=== PATIENT | male | born 1950 | race Caucasian/White ===

== ENCOUNTER → 2016-05-06 | Outpatient (CLI) | payer MEDICARE ==
[~2016-05-06] MED LIST: ACET1CAP18 PO; ALLO100T PO; COLA100C PO; COLA100C3 PO; DENO60P SQ; DIAL800T3 PO; DIAZ5 PO; FISH100020 PO; FLEC1TAB8 PO; GABA100C4 PO; GLUC100017 PO; MIDO10TA PO; NORC5TAB PO; OMEG100037 PO; OMEP20TA PO; POTA-163 PO; POTA10CA PO; POTA10TA8 PO; PRED1 PO; PRED5TAB PO; PROC10003 SQ; RENATAB5 PO; SEVEL800 PO; TAMS5CAP PO; TYLE325T PO; VITA100018 PO; VITA2000 PO; WARF-18 PO; WARF-21 PO; WARF-23 PO; ZINC30TA2 PO; ZOFR4TAB PO; [UNRECOGNIZED DRUG - CODE] OP; [UNRECOGNIZED DRUG - CODE] PO; [UNRECOGNIZED DRUG - CODE] SQ; [UNRECOGNIZED DRUG - SUPPLY]
[2016-05-06 11:26] LABS: HEMATOCRIT 31.1 % (39.0-51.0); MEAN CELL VOLUME 90.6 FL (80.0-100.0); MEAN CORPUSCULAR HGB CONC 34.2 % (32.0-36.0); PLATELET COUNT 201 TH/MM3 (150-450); RED BLOOD COUNT 3.44 MIL/MM3 (4.50-5.90); RED CELL DISTRIBUTION WIDTH 14.6 % (11.6-17.2); REVIEW FLAG FINAL; WHITE BLOOD COUNT 6.3 TH/MM3 (4.0-11.0)
[2016-05-06 13:11] LABS: BLOOD, URINE NEG (NEG); GLUCOSE,URINE NEG (NEG); KETONE, URINE NEG (NEG); NITRITE,URINE NEG (NEG); SQUAMOUS EPITHELIAL CELL URINE <1 /hpf (0-5); URINE COLOR YELLOW (YELLW/STRAW)
[2016-05-06 13:19] LABS: ALKALINE PHOSPHATASE 64 U/L (45-117); ALT (GPT) 35 U/L (12-78); ANION GAP 13 MEQ/L (5-15); AST (GOT) 18 U/L (15-37); BLOOD UREA NITROGEN 71 MG/DL (7-18); CHLORIDE 99 MEQ/L (98-107); GLOMERULAR FILTRATION RATE 9 ML/MIN (>89); HDL CHOLESTEROL 45.9 MG/DL (40.0-60.0); LDL CHOLESTEROL 113 MG/DL (0-99); POTASSIUM 3.2 MEQ/L (3.5-5.1); SODIUM (NA) 138 MEQ/L (136-145); TOTAL BILIRUBIN ADULT 0.5 MG/DL (0.2-1.0)
[2016-05-06 13:33] LABS: HEMOGLOBIN A1a 1.3 %; HEMOGLOBIN A1b 3.4 %; HEMOGLOBIN Ao 77.7 %; HEMOGLOBIN LA1C 3.6 %; HEMOGLOBIN P3 8.9 %
== END ==
LOC: OLAB 11:00
PROVIDERS: ATTEND Internal Medicine
DX: E78.2 Mixed hyperlipidemia (principal); D64.9 Anemia, unspecified; Z79.899 Other long term (current) drug therapy
CPT/HCPCS: 36415; 80053; 80061; 81001; 83036; 85027

== ENCOUNTER → 2016-05-08 | Day surgery (SDC) | payer MEDICARE ==
[~2016-05-08] MED LIST changes: +CALC0.25 PO; +LIDOCAINE HCL 1% PF 30 ML VIAL INFIL ONE; +PROPOFOL 200 MG/20 ML AMP IV ONE; +RENATAB6 PO; +SODIUM CHLORIDE 0.9% 10 ML VIAL ONE; +TRIAMCINOLONE ACETONIDE 40 MG/ML VIAL NB ONE; +methylPREDNISolone ACETATE 80 MG/ML VIAL ONE
--- NOTE | 2016-05-14 13:16 | M6 ---
cc: PLACIDO FROST M.D. DATE 05/08/2016 DATE OF 1950 PROCEDURE Fluoroscopically guided L2-3 translaminar epidural steroid injection PROCEDURE NOTE History and physical was completed and signed. Consent was signed. Procedure site was marked. Medications were listed and reconciled. Pain score was recorded. Allergies were noted. Time out was taken. Fluoroscopy time was recorded where applicable. Sedation was administered or directed by Dr. Frost. The patient was given oxygen. The patient was monitored by a registered nurse. Total procedure time was greater than 15 minutes. IV was started, blood pressure cuff, pulse oximeter and EKG were applied. The patient was placed in the prone position on a Floyd table, sedated with small amounts of propofol titrated to effect. Vital signs were monitored and remained stable throughout the procedure. The lumbar area was prepped with alcohol and 10% Betadine solution and draped with sterile drapes. Fluoroscopy was used to visualize the L2-3 translaminar space. The skin was infiltrated with 1% Xylocaine using a 27 gauge needle then a 3-1/2-inch 18-gauge Morales needle was advanced using fluoroscopic guidance and the [id number] technique into the epidural space at L2-3 slightly to the right of the midline. There was negative aspiration for blood or any other type of fluid and the patient was given 10 mL of half percent Xylocaine, 80 mg of Depo-Medrol. Following the procedure, the patient was taken to the recovery room with stable vital signs neurologically intact. W. MD CHARI Mejía/JOSE MARIA /10:45 AM /12:14 PM
== END | disposition home or self-care (01) ==
LOC: PHSDC 09:09
PROVIDERS: ATTEND Pain Medicine Interventional Pain Medicine
DX: M54.5 Low back pain (principal)
CPT/HCPCS: 62323; 99152; J1040; J3301

== ENCOUNTER → 2016-06-10 | Outpatient (CLI) | payer MEDICARE ==
[~2016-06-10] MED LIST changes: -DIAL800T3 PO; -LIDOCAINE HCL 1% PF 30 ML VIAL INFIL ONE; -PROPOFOL 200 MG/20 ML AMP IV ONE; -SODIUM CHLORIDE 0.9% 10 ML VIAL ONE; -TRIAMCINOLONE ACETONIDE 40 MG/ML VIAL NB ONE; -methylPREDNISolone ACETATE 80 MG/ML VIAL ONE
== END ==
LOC: OLAB 10:43
PROVIDERS: ATTEND Internal Medicine
DX: E79.0 Hyperuricemia without signs of inflammatory arthritis and tophaceous disease (principal)
CPT/HCPCS: 36415; 84550

== ENCOUNTER → 2016-07-16 | Day surgery (SDC) | payer MEDICARE ==
[~2016-07-16] MED LIST changes: +BUPIVACAINE HCL PF 0.5% 30 ML VIAL ONE; +PROPOFOL 200 MG/20 ML AMP IV ONE; +TRIAMCINOLONE ACETONIDE 40 MG/ML VIAL I-ARTICULR ONE; +methylPREDNISolone ACETATE 40 MG/ML VIAL I-ARTICULR ONE
--- NOTE | 2016-07-16 22:11 | M6 ---
cc: PLACIDO FROST M.D. DATE 07/16/2016 DATE OF 1950 PROCEDURE Fluoroscopically guided injection of bilateral sacroiliac joints. History and physical was completed and signed. Consent was signed. Procedure site was marked. Medications were listed and reconciled. Pain score was recorded. Allergies were noted. Time out was taken. Fluoroscopy time was recorded where applicable. Sedation was administered or directed by Dr. Frost. The patient was given oxygen. The patient was monitored by a registered nurse. Total procedure time was greater than 15 minutes. IV was started, blood pressure cuff, pulse oximeter and EKG were applied. The patient was placed in the prone position on a Floyd table, sedated with small amounts of propofol titrated to effect. Vital signs were monitored and remained stable throughout the procedure. The sacral area was prepped with alcohol and 10% Betadine solution and draped with sterile drapes. Fluoroscopy was used shooting from medial to lateral to clearly visualize the posterior joint line of the bilateral sacroiliac joints. Separate sterile 5-inch 22-gauge spinal needles were advanced into these joints under fluoroscopic guidance. There was negative aspiration for blood or any other type of fluid and at each location the patient was given 1 mL of 0.5% Marcaine and 20 mg of Depo-Medrol and 20 mg of Kenalog. Following the procedure the patient was taken to the recovery room with stable vital signs neurologically intact. He will be evaluated immediately and with followup to determine if he has a subjective decrease in his usual pain and a corresponding objective increase in his functional capabilities. WMD CHARI Triplett/DRE /10:20 AM /10:09 PM
== END | disposition home or self-care (01) ==
LOC: PHSDC 08:46
PROVIDERS: ATTEND Pain Medicine Interventional Pain Medicine
DX: M54.5 Low back pain (principal)
CPT/HCPCS: 27096; 99152; G0260; J1030; J3301

== ENCOUNTER 2016-08-31 18:25 | Inpatient (IN) | payer MEDICARE ==
[~2016-08-31] VITALS: Ht 172.7 cm; Wt 82.8 kg
[~2016-08-31 18:25] MED LIST changes: -ACET1CAP18 PO; -ALLO100T PO; -BUPIVACAINE HCL PF 0.5% 30 ML VIAL ONE; -CALC0.25 PO; -COLA100C3 PO; -DIAZ5 PO; -OMEG100037 PO; -POTA10TA8 PO; -PROPOFOL 200 MG/20 ML AMP IV ONE; -RENATAB6 PO; -TAMS5CAP PO; -TRIAMCINOLONE ACETONIDE 40 MG/ML VIAL I-ARTICULR ONE; -VITA100018 PO; -WARF-21 PO; -ZINC30TA2 PO; -ZOFR4TAB PO; -methylPREDNISolone ACETATE 40 MG/ML VIAL I-ARTICULR ONE
[2016-08-31 18:28] VITALS: BP 113/63; PULSE 88; RESP 21; TEMP 98.4; O2SAT 94
[2016-08-31 18:39] VITALS: O2SAT 94
[2016-08-31] MEDS ORDERED: ASPIRIN 81 MG CHEW TAB PO ONE (18:45)
[2016-08-31] MEDS ORDERED: SODIUM CHLORIDE 0.9% FLUSH 10 ML FLUSH IVF PRN (18:45)
[2016-08-31] MEDS ORDERED: MORPHINE SULFATE 4 MG/ML INJ IV PUSH ONE ×2 (18:45→19:30)
--- NOTE | 2016-08-31 18:46 | PD ---
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 He says he's never had chest pain this severe before. He says they have been told he has congestive heart failure but doesn't have a stent. He does feel short of breath. He does peritoneal dialysis in the evenings and hasn't started today. PFSH Past Medical History Hx Anticoagulant Therapy: Yes Arthritis: Yes (OA) Atrial Fibrillation: Yes Anxiety: Yes Heart Rhythm Problems: Yes Cancer: No Cardiac Catheterization: Yes Cardiovascular Problems: Yes (CHF) High Cholesterol: Yes Congestive Heart Failure: Yes COPD: Yes Cerebrovascular Accident: Yes Diabetes: No Diminished Hearing: No Deep Vein Thrombosis: Yes Endocrine: No Gastrointestinal Disorders: Yes (reflux) Gout: Yes Genitourinary: Yes (kidney failure does peritoneal dialysis nightly) Hepatitis: No Hiatal Hernia: No Hypertension: No Immune Disorder: No Implanted Vascular Access Dvce: Yes Medical other: Yes (ANEMIA, HX DVT RIGHT THIGH AND PHLEBITIS LEFT CALF,GOUT) Musculoskeletal: Yes (arthritis spinal problems) Neurologic: No Psychiatric: No Reproductive: No Respiratory: Yes (COPD, CHRONIC BRONCHITIS) Renal Failure: Yes (HX OF BEFORE TRANSPLANT) Sleep Apnea: Yes Thyroid Disease: No Tetanus Vaccination: < 5 Years Influenza Vaccination: Yes ?: Not Past Surgical History Abdominal Surgery: Yes (catheter inserted for peritoneal dyalysis) AICD: No Arteriovenous Shunt: Yes (AVF LUE) Body Medical Devices: peritoneal tube for dyalysis hardware in the back Cardiac Surgery: Yes (TAVR AT [facility] 03/04/2014) Ear Surgery: No Endocrine Surgery: Yes Eye Surgery: No Genitourinary Surgery: Yes (kidney transplant x2) Joint Replacement: No Neurologic Surgery: No Pacemaker: No Thoracic Surgery: No Other Surgery: Yes (KIDNEY TRANSPLANT X 2, CARPAL TUNNEL L WRIST, FISTULA L WRIST) Social History Alcohol Use: No Tobacco Use: No (QUIT 1975) Substance Use: No Allergies-Medications (Allergen,Severity, Reaction): Coded Allergies: No Known Allergies (Unverified , 08/31/16) Reported Meds & Prescriptions Reported Meds & Active Scripts Active [mace cushion] 1 Unit .XX Potassium Chloride ER (Potassium Chloride) 10 Meq Cap 10 Meq PO Reported Calcitriol 0.25 Mcg Cap 0.25 Mcg PO DAILY Aziza-Neeraj Rx (B-Complex W/ C & Folic Acid) 1 Tab 1 Tab PO DAILY Tylenol (Acetaminophen) 325 Mg Tab 650 Mg PO Q4H PRN Colace (Docusate Sodium) 100 Mg Capsule 1 Cap PO DAILY Fish Oil 1000 mg ([place]-3 Fatty Acids) 1 Cap Cap 1 Cap PO DAILY Potassium Chloride ER (Potassium Chloride) 20 Meq Tab 20 Meq PO Warfarin 5 Mg Tab 5 Mg PO Warfarin 2.5 Mg Tab 2.5 Mg PO Vitamin D3 (Cholecalciferol) 2,000 Unit Cap 2,000 Units PO DAILY Renvela (Sevelamer Carbonate) 800 Mg Tab 8,000 Mg PO TID Procrit Inj (Epoetin Keny) 10,000 Unit/Ml Inj 10,000 Units SQ 3XWEEK Prednisone 5 Mg Tab 5 Mg PO DAILY Prednisone 1 Mg Tab 1 Mg PO DAILY Gabapentin 100 Mg Cap 100 Mg PO BID [place] (Hydrocodone-Acetaminophen) 5-325 mg Tab 1 Tab PO Q4H PRN Aziza-Neeraj (B-Complex W/ C & Folic Acid) 1 Tab 1 Tab PO DAILY Omeprazole 20 Mg Tab 20 Mg PO HS Prolia Inj (Denosumab) 60 Mg/Ml Inj 60 Mg SQ Q180D Glucosamine (Glucosamine Sulfate) 1,000 Mg Cap 2,000 Mg PO DAILY Midodrine 10 Mg Tab 10 Mg PO TID Prednisone 5 Mg Tab 5 Mg PO DAILY Flecainide (Flecainide Acetate) 50 Mg Tab 75 Mg PO BID Whey Protein (Protein) 1 Pow Pow 30 Gm OP EVERY OTHER DAY Procrit Inj (Epoetin Keny) 2,000 Unit/Ml Inj 10,000 Units SQ MONTHLY up to 2 times a month as needed Boost Breeze (Nutritional Supplements) 1 Liq Liq PO DAILY Review of Systems Except as stated in HPI: all other systems reviewed are Neg Physical Exam Narrative GENERAL: Chronically ill-appearing. SKIN: Focused skin assessment warm and dry. HEAD: Atraumatic. Normocephalic. EYES: Pupils equal and round. No injection or drainage. ENT: Moist mucous membranes NECK: Trachea midline. CARDIOVASCULAR: Regular rate and rhythm. No murmur appreciated. RESPIRATORY: Clear to auscultation. Breath sounds equal bilaterally. GASTROINTESTINAL: Abdomen soft, non-tender, nondistended. Peritoneal dialysis catheter in place. MUSCULOSKELETAL: No obvious deformities. NEUROLOGICAL: Awake and alert. No obvious cranial nerve deficits. Moving all extremities. PSYCHIATRIC: Appropriate mood and affect; insight and judgment normal. Data Data Last Documented VS Vital Signs Date Time Temp Pulse Resp B/P Pulse Ox O2 Delivery O2 Flow Rate FiO2 08/31/16 18:39 99 Nasal Cannula 2 08/31/16 18:31 85 08/31/16 18:28 98.4 21 113/63 Orders Electrocardiogram (08/31/16 18:37) Complete Blood Count With Diff (08/31/16 18:37) Comprehensive Metabolic Panel (08/31/16 18:37) Magnesium (Mg) (08/31/16 18:37) Prothrombin Time / Inr (Pt) (08/31/16 18:37) Act Partial Throm Time (Ptt) (08/31/16 18:37) Troponin I (08/31/16 18:37) Lipase (08/31/16 18:37) Chest, Single Ap (08/31/16 18:37) Ecg Monitoring (08/31/16 18:37) Bilateral Bp Monitoring (08/31/16 18:37) Iv Access Insert/Monitor (08/31/16 18:37) Oximetry (08/31/16 18:37) Oxygen Administration (08/31/16 18:37) Aspirin Chew (Aspirin Chew) (08/31/16 18:45) Sodium Chloride 0.9% Flush (Ns Flush) (08/31/16 18:45) B-Type Natriuretic Peptide (08/31/16 18:37) Morphine Inj (Morphine Inj) (08/31/16 18:45) Morphine Inj (Morphine Inj) (08/31/16 19:30) Hydromorphone Pf Inj (Dilaudid Pf Inj) (08/31/16 20:45) Admit Order (Ed Use Only) (08/31/16 20:34) Labs Laboratory Tests Test 08/31/16 18:44 White Blood Count 11.6 TH/MM3 Red Blood Count 3.55 MIL/MM3 Hemoglobin 10.8 GM/DL Hematocrit 32.9 % Mean Corpuscular Volume 92.7 FL Mean Corpuscular Hemoglobin 30.5 PG Mean Corpuscular Hemoglobin 32.9 % Concent Red Cell Distribution Width 14.6 % Platelet Count 232 TH/MM3 Mean Platelet Volume 7.4 FL Neutrophils (%) (Auto) 85.7 % Lymphocytes (%) (Auto) 7.3 % Monocytes (%) (Auto) 6.0 % Eosinophils (%) (Auto) 0.6 % Basophils (%) (Auto) 0.4 % Neutrophils # (Auto) 10.0 TH/MM3 Lymphocytes # (Auto) 0.9 TH/MM3 Monocytes # (Auto) 0.7 TH/MM3 Eosinophils # (Auto) 0.1 TH/MM3 Basophils # (Auto) 0.0 TH/MM3 CBC Comment DIFF FINAL Differential Comment Prothrombin Time 27.3 SEC Prothromb Time International 2.4 RATIO Ratio Activated Partial 45.3 SEC Thromboplast Time Sodium Level 134 MEQ/L Potassium Level 3.6 MEQ/L Chloride Level 96 MEQ/L Carbon Dioxide Level 24.2 MEQ/L Anion Gap 14 MEQ/L Blood Urea Nitrogen 83 MG/DL Creatinine 8.43 MG/DL Estimat Glomerular Filtration 6 ML/MIN Rate Random Glucose 148 MG/DL Calcium Level 8.4 MG/DL Magnesium Level 2.2 MG/DL Total Bilirubin 0.4 MG/DL Aspartate Amino Transf 7 U/L (AST/SGOT) Alanine Aminotransferase 21 U/L (ALT/SGPT) Alkaline Phosphatase 73 U/L Troponin I 0.08 NG/ML B-Type Natriuretic Peptide 2543 PG/ML Total Protein 6.2 GM/DL Albumin 2.7 GM/DL Lipase 266 U/L [facility] Medical Decision Making Medical Screen Exam Complete: Yes Emergency Medical Condition: Yes Interpretation(s) EKG: Normal sinus rhythm, Right bundle branch block, right axis deviation, similar to EKG from 12/22/15 Differential Diagnosis myocardial infarction, chf, pulmonary embolism, aortic dissection Narrative Course This is a 65 year old male with a history of CKD and congestive heart failure who presents to the emergency department with chest pain. He is chronically unwell appearing. Labs will be obtained and patient was signed out to Dr. Delgado for disposition. Pt. will likely require admission given his high risk profile for ACS. Britni Villalobos MD Aug 31, 2016 18:46
[2016-08-31] MEDS ORDERED: RENATAB6 PO (18:58)
[2016-08-31] MEDS ORDERED: CALC0.25 PO (18:58)
--- NOTE | 2016-08-31 19:13 | RADRPT ---
EXAM DATE/TIME: 08/31/2016 18:57 [place] COMPARISON: CHEST SINGLE AP, September 18, 2014, 9:42. CHEST SINGLE AP, September 19, 2014, 10:58. INDICATIONS : Chest pain. MEDICAL HISTORY : None. SURGICAL HISTORY : None. ENCOUNTER: Initial ACUITY: 1 day PAIN SCORE: 6/10 LOCATION: Bilateral chest FINDINGS: The heart size is enlarged. There is a prosthetic valve. Lungs demonstrate mild proximal and intersti tial. Focal consolidation is not seen. CONCLUSION: Cardiomegaly and chronic interstitial disease. These findings are stable. Tato Mayes MD on August 31, 2016 at 19:09 Board Certified Radiologist. This report was verified electronically.
[2016-08-31 19:15] LABS: BASOPHIL % 0.4 % (0.0-2.0); EOSINOPHIL # 0.1 TH/MM3 (0-0.4); EOSINOPHIL % 0.6 % (0.0-4.0); HEMATOCRIT 32.9 % (39.0-51.0); HEMO FLAGS DIFF FINAL; LYMPH % 7.3 % (9.0-44.0); LYMPHOCYTE # 0.9 TH/MM3 (1.0-4.8); MEAN CELL VOLUME 92.7 FL (80.0-100.0); MEAN CORPUSCULAR HEMOGLOBIN 30.5 PG (27.0-34.0); MEAN CORPUSCULAR HGB CONC 32.9 % (32.0-36.0); NEUT % 85.7 % (16.0-70.0); PLATELET COUNT 232 TH/MM3 (150-450); RED BLOOD COUNT 3.55 MIL/MM3 (4.50-5.90); RED CELL DISTRIBUTION WIDTH 14.6 % (11.6-17.2); WHITE BLOOD COUNT 11.6 TH/MM3 (4.0-11.0)
[2016-08-31 19:28] LABS: ANION GAP 14 MEQ/L (5-15); AST (GOT) 7 U/L (15-37); BICARBONATE 24.2 MEQ/L (21.0-32.0); BLOOD UREA NITROGEN 83 MG/DL (7-18); CHLORIDE 96 MEQ/L (98-107); GLOMERULAR FILTRATION RATE 6 ML/MIN (>89); MAGNESIUM 2.2 MG/DL (1.5-2.5); POTASSIUM 3.6 MEQ/L (3.5-5.1); SODIUM (NA) 134 MEQ/L (136-145)
[2016-08-31 19:29] LABS: ALT (GPT) 21 U/L (12-78)
[2016-08-31 19:32] LABS: ALKALINE PHOSPHATASE 73 U/L (45-117); TOTAL BILIRUBIN ADULT 0.4 MG/DL (0.2-1.0)
[2016-08-31 19:41] LABS: APTT (PATIENT) 45.3 SEC (24.3-30.1); INTERNATIONAL NORMALIZED RATIO 2.4 RATIO; PROTHROMBIN TIME - PATIENT 27.3 SEC (9.8-11.6)
[2016-08-31] MEDS ORDERED: HYDROmorphone HCL PF 1 MG/ML VIAL IVS ONE (20:45)
[2016-08-31 20:54] VITALS: BP 116/71; PULSE 92; RESP 20; O2SAT 100
--- NOTE | 2016-08-31 21:40 | PD ---
Physical Exam Date Seen by Provider: Aug 31, 2016 Time Seen by Provider: 19:00 Narrative 65-year-old male who signed out to me by Dr. Robins at 7 PM at shift change. The patient was awaiting laboratory tests. The patient came in with shortness of breath and chest pain. Patient has mild CHF with an elevated BNP. Patient' s troponin showed elevation at 0.08. The patient's renal function was also compromise. EKG showed no evidence of acute changes. He had a right bundle branch which was not new. Data Data Last Documented VS Vital Signs Date Time Temp Pulse Resp B/P Pulse Ox O2 Delivery O2 Flow Rate FiO2 08/31/16 18:39 99 Nasal Cannula 2 08/31/16 18:31 85 08/31/16 18:28 98.4 21 113/63 Orders Electrocardiogram (08/31/16 18:37) Complete Blood Count With Diff (08/31/16 18:37) Comprehensive Metabolic Panel (08/31/16 18:37) Magnesium (Mg) (08/31/16 18:37) Prothrombin Time / Inr (Pt) (08/31/16 18:37) Act Partial Throm Time (Ptt) (08/31/16 18:37) Troponin I (08/31/16 18:37) Lipase (08/31/16 18:37) Chest, Single Ap (08/31/16 18:37) Ecg Monitoring (08/31/16 18:37) Bilateral Bp Monitoring (08/31/16 18:37) Iv Access Insert/Monitor (08/31/16 18:37) Oximetry (08/31/16 18:37) Oxygen Administration (08/31/16 18:37) Aspirin Chew (Aspirin Chew) (08/31/16 18:45) Sodium Chloride 0.9% Flush (Ns Flush) (08/31/16 18:45) B-Type Natriuretic Peptide (08/31/16 18:37) Morphine Inj (Morphine Inj) (08/31/16 18:45) Morphine Inj (Morphine Inj) (08/31/16 19:30) Hydromorphone Pf Inj (Dilaudid Pf Inj) (08/31/16 20:45) Admit Order (Ed Use Only) (08/31/16 20:34) Labs Laboratory Tests Test 08/31/16 18:44 White Blood Count 11.6 TH/MM3 Red Blood Count 3.55 MIL/MM3 Hemoglobin 10.8 GM/DL Hematocrit 32.9 % Mean Corpuscular Volume 92.7 FL Mean Corpuscular Hemoglobin 30.5 PG Mean Corpuscular Hemoglobin 32.9 % Concent Red Cell Distribution Width 14.6 % Platelet Count 232 TH/MM3 Mean Platelet Volume 7.4 FL Neutrophils (%) (Auto) 85.7 % Lymphocytes (%) (Auto) 7.3 % Monocytes (%) (Auto) 6.0 % Eosinophils (%) (Auto) 0.6 % Basophils (%) (Auto) 0.4 % Neutrophils # (Auto) 10.0 TH/MM3 Lymphocytes # (Auto) 0.9 TH/MM3 Monocytes # (Auto) 0.7 TH/MM3 Eosinophils # (Auto) 0.1 TH/MM3 Basophils # (Auto) 0.0 TH/MM3 CBC Comment DIFF FINAL Differential Comment Prothrombin Time 27.3 SEC Prothromb Time International 2.4 RATIO Ratio Activated Partial 45.3 SEC Thromboplast Time Sodium Level 134 MEQ/L Potassium Level 3.6 MEQ/L Chloride Level 96 MEQ/L Carbon Dioxide Level 24.2 MEQ/L Anion Gap 14 MEQ/L Blood Urea Nitrogen 83 MG/DL Creatinine 8.43 MG/DL Estimat Glomerular Filtration 6 ML/MIN Rate Random Glucose 148 MG/DL Calcium Level 8.4 MG/DL Magnesium Level 2.2 MG/DL Total Bilirubin 0.4 MG/DL Aspartate Amino Transf 7 U/L (AST/SGOT) Alanine Aminotransferase 21 U/L (ALT/SGPT) Alkaline Phosphatase 73 U/L Troponin I 0.08 NG/ML B-Type Natriuretic Peptide 2543 PG/ML Total Protein 6.2 GM/DL Albumin 2.7 GM/DL Lipase 266 U/L [facility] Medical Record Reviewed: Yes Supervised Visit with KESHAWN: No Differential Diagnosis The patient presents with complaints of shortness of breath and chest pain. The patient has a history of renal failure, peritoneal dialysis dependent, patient also has history of CHF and coronary artery disease. The patient's troponin is 0.08. This is likely secondary to his renal failure. We will order serial enzymes. The patient was discussed with Dr. Arely Caraballo, on-call experience specialist. I felt more comfortable having the patient be admitted to the intensive care unit as he does have a complicated medical history with a slightly elevated troponin which is likely not acute. She was agreeable to the admission. Diagnosis Primary Impression: Shortness of breath Additional Impressions: Chest pain Elevated troponin I measurement renal failure, peritoneal dialysis dependent. Congestive heart failure Anticoagulation goal of INR 2 to 3 Admitting Information Admitting Physician Requests: Admit Deshawn Delgado MD Aug 31, 2016 21:40
[2016-08-31] MEDS ORDERED: SODIUM CHLORIDE 0.9% 10 ML VIAL IV PRN (22:30)
[2016-08-31] MEDS ORDERED: HEPARIN SODIUM - IV 10,000 UNITS/10 ML VIAL IV FLUSH PRN (22:30)
[2016-08-31] MEDS ORDERED: CHLORHEXIDINE GLUCONATE 2 % 1 PACK (2 CLOTHS)(extra cloths) TOPICAL PRN (23:00)
[2016-08-31 23:45] VITALS: PULSE 99
[2016-09-01] VITALS (28 sets, daily range): BP systolic 80–142; BP diastolic 51–80; PULSE 76–115; RESP 17–43; TEMP 98.4–101.2; O2SAT 85–99
--- NOTE | 2016-09-01 00:23 | HHI.HP ---
[facility] Service Critical Care Medicine Primary Care Physician Vicente Amado MD Admission Diagnosis Chest pain, shortness of breath, renal failure, elevated troponin Diagnosis: Travel History International Travel<30 Days: No Contact w/Intl Traveler <30 Da: No Traveled to Known Affected Are: No History of Present Illness 65-year-old male with past medical history of ESRD. He has undergone renal transplant in the past in 1985 and 1989, has been on intermittent PD for last 3 years. Does 16 hours PD nightly starting at 5 pm. He also has h/o CHF ( nonischemic), h/o aortic stenosis s/p TAVR 03/2014, moderate mitral stenosis, HLD, COPD, A fib on anticoagulation with warfarin, DVT, GERD, peripheral neuropathy, sacral decubitus ulcer. He presented to [facility] emergency department today after he developed chest pain this morning while he was sitting in his wheelchair. He describes the pain as "a heaviness" constant 8/10 in midchest and "radiating to lungs" , worse with deep breath, associated with shortness of breath. He denies any fevers, cough, hemoptysis. He is chronically anticoagulated with warfarin and INR is 2.4. Chest x-ray demonstrates cardiomegaly, vascular congestion and pulmonary edema. Sodium is 134, BNP 2543, Troponin 0.08. EKG regular with RBBB and no ischemic changes. He reports compliance with PD regimen. Dr. Delgado has spoken with Dr. Anjana Pope who will initiate PD tonight. also notes he has been confused since receiving Morphine 6 mg IV and Dilaudid 1 mg IV in the ED. Review of Systems Respiratory: COMPLAINS OF: Shortness of breath Past Family Social History Allergies: Coded Allergies: No Known Allergies (Unverified , 08/31/16) Past Medical History CHF, nonischemic Has had multiple negative caths in the past after prior abnormal stress tests. Has no stents. Aortic stenosis now status TAVR 03/04/14 Moderate mitral stenosis on Echo 06/15 Atrial fibrillation on chronic anticoagulation with warfarin ESRD - currently on PD. Has h/o renal transplant in 1985 and 1989. Transplant failed about 3 years ago and he has subsequently been on PD. Has LUE fistual from 1985 which was last accessed 3 years ago. Hyperlipidemia COPD DVT GERD Gout OA Adrenal insufficiency Admitted December 2015 for SAH, non aneursymal. Cataracts He was treated for CMV pneumonia in 2014 PMD - Dr. Vicente Aamdo English Language Arts Teacher - Dr. Linder Machining Manager - Dr. Sesay Urologist - Dr. Ramires Golf Technician - Dr Castro Building Maintenance Worker - Dr. Katalina Quiroga Neurologist - Dr. Tracey Billboard Erector - Dr. Nubia Velázquez Past Surgical History C1/C2 fusion L2-L5 fusion R shoulder surgery with resection of cyst AC joint 09/15/14 (Dr. José) TAVR 03/04/14 [facility] AV fistula left upper extremity, 1985 PD catheter placed about 3 years ago All cardiac catheterizations in the past have been negative per his . The most recent of which was in 2013. He has no stents Colonoscopy 02/02/15 Reported Medications Prednisone 7 mg by mouth daily Midrin 10 mg by mouth 3 times a day Tylenol 650 g by mouth every 4 hours when necessary pain 5// milligrams by mouth twice a day Warfarin 2.5 mg by mouth daily Friday, Friday, Friday, Warfarin 5 mg by mouth daily Friday, Friday Gabapentin 100 g by mouth twice a day Omeprazole 1 tab by mouth daily Prolene 60 mg subcutaneous every 3 months Boost breeze daily Colace 100 mg by mouth daily Erythropoietin 10,000 units subcutaneous 3 times per week Lortab 5/325 by mouth every 4 hours as needed for pain Glucosamine 2000 mg by mouth daily Renvela 800 g by mouth 3 times a day Omeprazole 20 mg by mouth daily at bedtime Potassium chloride 10 mEq Friday, Friday, , Friday Potassium 20 mEq Friday, Friday, Friday B vitamin Calcitriol 0.25 g by mouth daily Vitamin D3 2000 units by mouth daily Family History Father had history of coronary artery disease and stents, unclear age Mother of breast cancer at age 82 Social History Smoked a half a pack of cigarettes per day but quit in the 1970s No alcohol or illicit drug use. Uses a wheelchair and is nonambulatory at baseline Physical Exam Vital Signs Vital Signs Date Time Temp Pulse Resp B/P Pulse Ox O2 Delivery O2 Flow Rate FiO2 08/31/16 20:54 92 20 116/71 100 Nasal Cannula 3 08/31/16 18:39 99 Nasal Cannula 2 08/31/16 18:39 94 Room Air 08/31/16 18:31 85 96 Nasal Cannula 2 08/31/16 18:28 98.4 88 21 113/63 94 Physical Exam GENERAL: Well-nourished, well-developed patient who is sitting up in [facility] bed. Alert and answering questions but not all answers are consistent. He is confused. SKIN: Warm and dry. There is 1.5 cm stage II sacral decubitus ulcer with Mepilex in place. No exudate or surrounding cellulitis HEAD: Atraumatic. Normocephalic. EYES: Pupils equal and round, 3mm reactive to 2mm. No scleral icterus. No injection or drainage. ENT: No nasal bleeding or discharge. Mucous membranes pink and moist. NECK: Trachea midline. No JVD. CARDIOVASCULAR: Regular rate and rhythm. 3/6 systolic murmur at left lower sternal border and apex RESPIRATORY: Slightly tachypneic, rales L base. No wheeze. GASTROINTESTINAL: Abdomen soft, non-tender, nondistended. Tenkhoff catheter in place, no exudate VASC: +thrill LUE fistula. MUSCULOSKELETAL: Extremities without clubbing, cyanosis, or edema. NEUROLOGICAL: Awake and alert. No obvious cranial nerve deficits. Motor grossly within normal limits, moving all extremities but with some upper extremity tremor and akathisia. Normal speech, oriented but intermittently confused. Laboratory Laboratory Tests Test 08/31/16 18:44 White Blood Count 11.6 Red Blood Count 3.55 Hemoglobin 10.8 Hematocrit 32.9 Mean Corpuscular Volume 92.7 Mean Corpuscular Hemoglobin 30.5 Mean Corpuscular Hemoglobin 32.9 Concent Red Cell Distribution Width 14.6 Platelet Count 232 Mean Platelet Volume 7.4 Neutrophils (%) (Auto) 85.7 Lymphocytes (%) (Auto) 7.3 Monocytes (%) (Auto) 6.0 Eosinophils (%) (Auto) 0.6 Basophils (%) (Auto) 0.4 Neutrophils # (Auto) 10.0 Lymphocytes # (Auto) 0.9 Monocytes # (Auto) 0.7 Eosinophils # (Auto) 0.1 Basophils # (Auto) 0.0 CBC Comment DIFF FINAL Differential Comment Prothrombin Time 27.3 Prothromb Time International 2.4 Ratio Activated Partial 45.3 Thromboplast Time Sodium Level 134 Potassium Level 3.6 Chloride Level 96 Carbon Dioxide Level 24.2 Anion Gap 14 Blood Urea Nitrogen 83 Creatinine 8.43 Estimat Glomerular Filtration 6 Rate Random Glucose 148 Calcium Level 8.4 Magnesium Level 2.2 Total Bilirubin 0.4 Aspartate Amino Transf 7 (AST/SGOT) Alanine Aminotransferase 21 (ALT/SGPT) Alkaline Phosphatase 73 Troponin I 0.08 B-Type Natriuretic Peptide 2543 Total Protein 6.2 Albumin 2.7 Lipase 266 Result Diagram: 08/31/16 18408/31/16 184 Assessment and Plan Assessment and Plan NEURO: H/o nonaneurysmal SAH in 2016 Hard of hearing Peripheral neuropathy Status post cervical and lumbar fusion NEurontin 100 mg po bid. Lortab as needed for pain Hold morphine/dilaudid due to confusion RESP: Respiratory insufficiency Pulmonary edema PD initiation for pulmonary edema as per below. Possibly will require HD depending on response. CV: h/o aortic stenosis s/p TAVR 03/2013 Mitral stenosis Pulmonary HTN CHF, nonischemic RBBB Paroxysmal Atrial fibrillation h/o orthostatic hypotension Patient appears volume overloaded and this is probably the source of chest heaviness and mild troponin elevation. Serial EKG and troponins. ASA given in ED. Obtain 2 D Echo Continue Flecainide 75 mg po bid.. Continue anticoagulation with warfarin for A. fib Continue Midrodrine 10 mg by mouth 3 times a day. His wireless consultant is Dr. Castro. GI: GERD Renal diet Bowel regimen per protocol FEN/RENAL: ESRD Hyponatremia On peritoneal dialysis x 3 years. PD per nephrology, Dr. Pope covering. Dr. Linder is his primary spinneret cleaner. May need HD depending on response. Renvela 800 mg po tid ID: Monitor for signs and symptoms of infection. He is afebrile without evidence of infection currently. CXR with no consolidation. HEME: Chronic anemia Hgb is 10.8. Has been on Epo per nephrology and will defer management to them. Chronic anticoagulation for paroxysmal history of A. fib, history of DVT Warfarin 5 mg daily Friday, 2.5 mg sat Friday Daily INR. ENDO: Secondary hyperparathyroidism Adrenal insufficiency Hyperglycemia may be secondary to chronic steroid use. D3 2000 units daily, calcitriol 0.25 po daily. Patient has chronic adrenal insufficiency following over 30 years of prednisone use. Remains on prednisone 7 mg po bid which will continue for now but consider increasing to stress hydrocortisone if becomes more critically ill. Low dose insulin sliding scale ac/hs. MSK H/o gout H/O osteoarthritis PROPH:On warfarin with INR 2.6 which provides DVT prophylaxis. Protonix 20 mg daily for stress ulcer prophylaxis and history of GERD ACCESS: PIV providing adequate access. Has LUE fistula . Patient and his updated at bedside. Reviewed med list in detail with . Known to [facility]ist service past admissions. [id number] Arely Caraballo MD Sep 01, 2016 00:23
[2016-09-01] MEDS ORDERED: ONDANSETRON HCL 4 MG/2 ML VIAL IV PRN (01:00)
[2016-09-01] MEDS ORDERED: MAGNESIUM HYDROXIDE SUSP 30 ML CUP PO PRN (01:00)
[2016-09-01] MEDS ORDERED: BISACODYL 10 MG SUPP RECTAL PRN (01:00)
[2016-09-01] MEDS ORDERED: SODIUM CHLORIDE 0.9% FLUSH 10 ML FLUSH IV FLUSH PRN (01:00)
[2016-09-01] MEDS ORDERED: CHLORHEXIDINE GLUCONATE 2 % 1 PACK (2 CLOTHS) TOP PRN (01:00)
[2016-09-01] MEDS ORDERED: PILL SPLITTER OTHER PRN (01:00)
[2016-09-01] MEDS ORDERED: RESP: ALBUTEROL 2.5 MG/3 ML NEB (PRN) INH (01:00)
[2016-09-01] MEDS ORDERED: MISCELLANEOUS NURSING INFORMATION XX SCH (01:00)
[2016-09-01] MEDS ORDERED: ACETAMINOPHEN 325 MG TAB PO PRN (01:00)
[2016-09-01] MEDS ORDERED: SENNOSIDES 8.6 MG TAB PO PRN (01:00)
[2016-09-01] MEDS ORDERED: LACTULOSE SYRUP 20 GM/30 ML CUP PO PRN (01:00)
[2016-09-01 01:42] LABS: BLOOD GAS BASE EXCESS -5.6 mmol/L (-2-2); BLOOD GAS CARBOXYHEMOGLOBIN 2.1 % (0-4); BLOOD GAS HCO3 19 mmol/L (22-26); BLOOD GAS METHEMOGLOBIN 1.1 % (0-2); BLOOD GAS O2 HGB SATURATION 92 % (90-100); BLOOD GAS OXYGEN CONTENT 14.8 Vol % (12.0-20.0); BLOOD GAS PCO2 31 mmHg (38-42); BLOOD GAS PO2 79 mmHg (61-120); BLOOD GAS TOTAL HGB 11.4 G/DL (12.0-16.0); CRITICAL VALUE NO; DRAW SITE RT RADIAL; LITER FLOW 2 L/M; NUMBER OF ARTERIAL PUNCTURES 1; OXYGEN DEVICE NASAL CANNULA; TEMP CORR TO 98.6; ULNAR PULSE PRESENT
[2016-09-01 01:43] LABS: STAT YES
[2016-09-01] MEDS: PANTOPRAZOLE SOD 20 MG DELAYED RELEASE TAB PO SCH ×2 (01:50→21:35)
[2016-09-01] MEDS: FLECAINIDE ACETATE 100 MG TAB PO SCH ×3 (01:50→21:00)
[2016-09-01] MEDS: GABAPENTIN 100 MG CAP PO SCH ×3 (01:50→21:34)
[2016-09-01] MEDS ORDERED: GLUCAGON 1 MG/ML VIAL OTHER PRN (02:00)
[2016-09-01] MEDS ORDERED: DEXTROSE 50% IN WATER 50 ML VIAL(D50) IV PRN (02:00)
[2016-09-01] MEDS ORDERED: WARFARIN SOD 2.5 MG TAB PO ONE (02:15)
[2016-09-01] MEDS ORDERED: MIDODRINE 5 MG TAB PO ONE (02:15)
[2016-09-01] MEDS: CHLORHEXIDINE GLUCONATE 2 % 1 PACK (2 CLOTHS) TOP SCH (02:25)
[2016-09-01] MEDS ORDERED: CHLORHEXIDINE GLUCONATE 2 % 1 PACK (2 CLOTHS)(taper/protocol) TOPICAL SCH (04:00)
[2016-09-01] MEDS: INSULIN ASPART SUPPLEMENTAL SCALE SQ SCH ×4 (06:23→21:00)
[2016-09-01] MEDS: ACETAMINOPHEN/HYDROcodone 325 MG/5 MG TAB PO PRN ×4 (08:03→23:21)
[2016-09-01] MEDS ORDERED: DOCUSATE SODIUM 100 MG CAP PO SCH (09:00)
[2016-09-01] MEDS: CHOLECALCIFEROL (VIT D3) 1000 UNIT TAB PO SCH (09:00)
[2016-09-01] MEDS: DOCUSATE SODIUM 50 MG/SENNA 8.6 MG TAB PO SCH ×2 (09:00→21:00)
[2016-09-01] MEDS: CALCITRIOL 0.25 MCG CAP PO SCH (09:44)
[2016-09-01] MEDS: SEVELAMER CARBONATE 800 MG TAB PO SCH ×3 (09:44→17:56)
[2016-09-01] MEDS: VITAMIN B CMPLX/VITC/FOLIC AC CAP PO SCH (09:46)
[2016-09-01] MEDS: MIDODRINE 5 MG TAB PO SCH ×3 (09:47→21:33)
[2016-09-01] MEDS: SODIUM CHLORIDE 0.9% FLUSH 10 ML FLUSH IV FLUSH SCH ×2 (09:47→21:34)
--- NOTE | 2016-09-01 14:24 | EKG ---
Date Performed: 08/31/2016 Time Performed: 18:30:48 PTAGE: 65 years EKG: Probable Sinus rhythm WITH FIRST DEGREE AV BLOCK MARKED RIGHT AXIS DEVIATION RIGHT BUNDLE BRANCH BLOCK ABNORMAL ECG PREVIOUS TRACING : 12/22/2015 11.28 Since the prior tracing, the right bundle branch block is n ew. Repeat tracing with less artifact advised. The nonspecific lateral ST elevation is new. Clinical correlation advised. DOCTOR: Radha Hidalgo Interpretating Date/Time 09/01/2016 14:22:50
--- NOTE | 2016-09-01 14:26 | EKG ---
Date Performed: 09/01/2016 Time Performed: 01:21:24 PTAGE: 65 years EKG: Probable Sinus rhythm , although this could also be an accelerated junctional rhythm or even an idioventricular rhythm as i t is very difficult to see organized P wave activity. Right axis deviation Right bundle branch block Inferior T wave changes are nonspecific Low QRS voltages in precordial leads Abnormal ECG PREVIOUS TRACING : 08/31/2016 18.30 Since the prior tracing, there has been no serial change, e xcept for more prominent ST elevation laterally with ST depression at least in lead 3. This is nonspe cific in the setting of the bundle branch block, but a lateral ST segment elevation cannot be exclude d on the basis of these tracings. DOCTOR: Radha Hidalgo Interpretating Date/Time 09/01/2016 14:25:30
--- NOTE | 2016-09-01 14:28 | EKG ---
Date Performed: 09/01/2016 Time Performed: 07:02:11 PTAGE: 65 years EKG: Regular rhythm of uncertain mechanism, but most consistent with Sinus rhythm in first degree AV block. MARKED RIGHT AXIS DEVIATION RIGHT BUNDLE BRANCH BLOCK ABNORMAL ECG PREVIOUS TRACING : 09/01/2016 01.21 Since the prior tracing, there has been no serial change bu t the lateral ST elevation, suggesting a possible ST segmental infarct persists. Again, this is not d iagnostic in the setting of a conduction disturbance, but clinical correlation will be important. DOCTOR: Radha Hidalgo Interpretating Date/Time 09/01/2016 14:27:34
--- NOTE | 2016-09-01 15:00 | MB ---
cc: IOANA SERRA MD DATE OF CONSULTATION: 09/01/2016. REASON FOR CONSULTATION: End-stage renal disease management. HISTORY OF PRESENT ILLNESS: This is a 65-year-old male with a history of end-stage renal disease. He is followed up as an outpatient with Dr. Linder for peritoneal dialysis. He had two previous renal transplants in the past. He has a significant cardiac history including congestive heart failure with aortic stenosis and transaortic valve repair in 2014 as well as moderate mitral stenosis and COPD and atrial fibrillation on Coumadin as well as DVT and gastroesophageal reflux disease. The patient has an ongoing sacral decubitus ulcer as well. The patient presented for admission last night when he reported having chest tightness and heaviness which was radiating to his lungs and it was worsened with inspiration. A chest x-ray revealed vascular congestion and pulmonary edema with a BNP of 2543. The patient was admitted overnight and monitored in the intensive care unit. Peritoneal dialysis was initiated last night and he had approximately 750 mL output of drainage with his peritoneal dialysis overnight. In general, he reports his drainage has been going adequately at home. He has had no recent signs of any infection or peritonitis symptoms and otherwise is feeling well. At this point, he is resting in bed comfortably however he reports some ongoing chest tightness and chest pains. His troponins initially were 0.08 and trended up slightly to 0.25 and 0.30. Cardiology consultation was requested, and is pending at this point otherwise. His respiratory status is stable and nephrology was consulted for further evaluation. REVIEW OF SYSTEMS: The patient denies any fevers, chills, no nausea, no vomiting, no diarrhea. He does have chest pains ongoing and with mild dyspnea; otherwise, no diarrhea, constipation or dysuria. The review of systems is otherwise negative. PAST MEDICAL HISTORY: His past medical history includes: 1. Congestive heart failure with nonischemic congestive heart failure and multiple negative catheterizations after previous abnormal stress test with known cardiac stents. 2. History of aortic stenosis with aortic valve replacement in March of 2014. 3. Moderate mitral stenosis on echocardiogram of June,. 4. History of atrial fibrillation on chronic Coumadin. 5. End-stage renal disease currently on peritoneal dialysis and he follows up with Dr. Linder. 6. History of previous renal transplants in 1985 and 1989. 7. History of left upper extremity AV fistula which was accessed three years ago for short-term volume removal. 8. History of dyslipidemia. 9. COPD. 10. Degenerative disc disease. 11. Gastroesophageal reflux disease (GERD). 12. Gout. 13. Osteoarthritis. 14. Adrenal insufficiency. 15. Subarachnoid hemorrhage. 16. Cataracts. 17. Previous CMV pneumonia in 2014. PAST SURGICAL HISTORY: 1. C1-2 fusion. 2. L2-5 fusion. 3. Right shoulder surgery with resection of a cyst of the AC joint in 2014. 4. History of aortic valve replacement with TAVR at [facility] in [place] in 2014. 5. Left radiocephalic AV fistula placed in 1985, still patent. 6. History of PD catheter placed three years ago. 7. Previous cardiac catheterizations which apparently were negative most recently in 2013. 8. History of colonoscopy in 2014. MEDICATIONS AT HOME: 1. Prednisone 7 milligrams daily. 2. Midodrine 10 milligrams three times a day. 3. Tylenol. 4. Coumadin. 5. Gabapentin. 6. Letrozole. 7. Proline. 8. Boost. 9. Colace. 10. Erythropoietin 10,000 units subcutaneous three times per week. 11. Lortab. 12. Glucosamine. 13. Renvela. 14. Omeprazole. 15. Potassium chloride 10 milliequivalents Sundays, Tuesdays, , Saturdays and 20 milliequivalents Friday, Friday, Friday. 16. Vitamin B. 17. Calcitriol 0.25 micrograms daily. 18. Vitamin D3 2000 units daily. FAMILY HISTORY: Father with coronary artery disease and stents. Mother with breast cancer at age 80s. SOCIAL HISTORY: Half pack of cigarettes per day but quit in the 1970s. No alcohol, tobacco or drug use. The patient uses a wheelchair and lives at home with his . PHYSICAL EXAMINATION: VITAL SIGNS: At the time of evaluation, temperature 98.9, pulse 89, respiratory rate 25, blood pressure 101/61, pulse oximetry 94% on two liters nasal cannula. GENERAL: Awake, alert and oriented and in no apparent distress. HEAD, EYES, EARS, NOSE, THROAT: Neck soft supple. CARDIAC: Regular rate and rhythm. PULMONARY: Lungs clear to auscultation. Decreased breath sounds at the bases. ABDOMEN: The abdomen is soft, nontender and nondistended. PD catheter in place with no signs of erythema. EXTREMITIES: No peripheral edema. Patient with left radiocephalic fistula with weak but positive thrill. LABORATORY FINDINGS: Sodium 134, potassium 3.6, chloride 96, bicarbonate 24, BUN 83, creatinine 8.4, glucose 148, calcium 8.4, magnesium 2.2, alkaline phosphatase 73. Troponin was 0.08, 0.25 and 0.30. BNP of 2543. Albumin 2.7. Lipase 266. White count 11.6, hemoglobin 10.8, hematocrit 32.9 with platelet count of 232,000. ASSESSMENT AND PLAN: 1. End-stage renal disease: The patient is on peritoneal dialysis. Will re-initiate the peritoneal dialysis here. His volume status and electrolytes are otherwise relatively stable; however, will do ultrafiltration as tolerated with PD. The patient at home uses one green bag and two yellow bags and does 13-hour with a cycler overnight and then two intermittent exchanges. Will adjust peritoneal dialysis here and continue with cycler with ultrafiltration as tolerated. The patient had 700 cc of output overnight and has one more exchange today planned. Will monitor ultrafiltration and adjust PD solution as necessary. May need to further increase PD fluid removal if necessary; however, at this point, it appears that he is having adequate drainage. Continue to monitor closely. Of note, the patient has a left radiocephalic AV fistula with a positive thrill. Should he need intermittent hemodialysis for fluid removal, this could be considered. Apparently this was done 3 years ago. However it appears that the PD is functioning well at this point. Continue with UF as tolerated and continue with PD at this time. 2. Chest pains. Continue to follow up with cardiology. Cardiology consultation is pending at this point. The patient's troponins are slightly trending up with initial troponin of 0.08 then 0.025 and 0.30. Continue to follow up with cardiology. The patient does have some ongoing chest discomfort at this point and continue to monitor. 3. Hyponatremia. The patient has a sodium of 134. Continue with PD with UF as tolerated. 4. Anemia. The patient has a hemoglobin of 10.8. He is on Epogen at home. Continue to monitor. 5. Adrenal insufficiency. The patient has a long history of steroid use with history of previous transplants. He has apparently developed adrenal insufficiency and requires ongoing steroids. Continue with Prednisone at this point. 6. History of hypokalemia. The patient has been on potassium supplementation. Continue to monitor. Potassium is stable at this point. 7. Chronic hypotension. The patient is on midodrine. Continue to monitor. Apparently his ultrafiltration with PD has been limited in the past secondary to chronic hypotension. Continue existing PD dosage for now and continue to monitor ultrafiltration. MD CLINTON Vazquez/SUSAN /12:09 PM /2:22 PM MTDD
--- NOTE | 2016-09-01 17:04 | HHI.CCPN ---
Subjective Remarks/Hospital Course 65-year-old male with past medical history of ESRD. He has undergone renal transplant in the past in 1985 and 1989, has been on intermittent PD for last 3 years. Does 16 hours PD nightly starting at 5 pm. He also has h/o CHF ( nonischemic), h/o aortic stenosis s/p TAVR 03/2014, moderate mitral stenosis, HLD, COPD, A fib on anticoagulation with warfarin, DVT, GERD, peripheral neuropathy, sacral decubitus ulcer. He presented to [facility] emergency department today after he developed chest pain this morning while he was sitting in his wheelchair. He describes the pain as "a heaviness" constant 8/10 in midchest and "radiating to lungs" , worse with deep breath, associated with shortness of breath. He denies any fevers, cough, hemoptysis. He is chronically anticoagulated with warfarin and INR is 2.4. Chest x-ray demonstrates cardiomegaly, vascular congestion and pulmonary edema. Sodium is 134, BNP 2543, Troponin 0.08. EKG regular with RBBB and no ischemic changes. He reports compliance with PD regimen. Dr. Delgado has spoken with Dr. Anjana Pope who will initiate PD tonight. also notes he has been confused since receiving Morphine 6 mg IV and Dilaudid 1 mg IV in the ED. Subjective 09/01: Continues to have chest pain. Troponin has increased 0.3. Cardiology has been consulted. Chest pain is pleuritic. Not muscle skeletal. Generally feels weak. Medications adjusted see orders. Objective Vital Signs Date Time Temp Pulse Resp B/P Pulse Ox O2 Delivery O2 Flow Rate FiO2 09/01/16 14:00 87 22 93/57 95 09/01/16 12:02 98.4 09/01/16 07:27 Nasal Cannula 2.00 Result Diagram: 08/31/16 1844 08/31/16 184 Imaging Last Impressions Chest X-Ray 08/31/161836 Signed Impressions: Service Date/Time: Wednesday, August 31, 2016 18:57 - CONCLUSION: Cardiomegaly and chronic interstitial disease. These findings are stable. Tato Mayes MD Objective Remarks GENERAL: 65-year-old male, resting in bed in no acute distress SKIN: Warm and dry. There is ~ 2 x 2 centimeter cm stage II sacral decubitus ulcer with Mepilex in place. No surrounding erythema or drainage HEAD: Atraumatic. Normocephalic. EYES: Pupils equal and round, 3mm reactive to 2mm. No scleral icterus. No injection or drainage. ENT: No nasal bleeding or discharge. Mucous membranes pink and moist. NECK: Trachea midline. No JVD. CARDIOVASCULAR: RRR. S1, S2. No S4.. 3/6 systolic murmur at left lower sternal border and apex RESPIRATORY: Few crackles appreciated in the left lower lobe. GASTROINTESTINAL: Abdomen soft, non-tender, nondistended. Prior kidney graft palpated in left lower quadrant. Tenkhoff catheter in place, no exudate VASC: +thrill LUE fistula. MUSCULOSKELETAL: Extremities without significant peripheral edema. NEUROLOGICAL: Awake and alert. Cranial nerves II through XII grossly intact. Motor grossly within normal limits, moving all extremities Normal speech, oriented but intermittently confused. A/P Assessment and Plan NEURO: History of left posterior parietal subarachnoid hemorrhage Hard of hearing Peripheral neuropathy Status post cervical and lumbar fusion Bilateral cataracts Chronic narcotic use Continue Neurontin 100 mg po bid. Lortab as needed for pain Hold morphine/dilaudid due to confusion RESP: Acute respiratory insufficiency Pulmonary edema History of pulmonary hypertension Nasal cannula to maintain saturations greater than equal to 92% Incentive spirometry while awake A.m. chest x-ray ordered CV: h/o aortic stenosis s/p TAVR Mitral stenosis Pulmonary HTN CHF, nonischemic RBBB Paroxysmal Atrial fibrillation History of orthostatic hypotension ASA given in ED. 2-D echocardiogram pending Continue Flecainide 75 mg po bid.. Continue anticoagulation with warfarin for A. fib Continue Midrodrine 10 mg by mouth 3 times a day. Or orthostatic hypotension Consultation pending with Dr. Castro. GI: GERD Renal diet Bowel regimen per protocol On Protonix 20 no grams by mouth daily. FEN/RENAL: ESRD - peritoneal dialysis Hyponatremia Hyperphosphatemia On peritoneal dialysis x 3 years. PD per nephrology, Dr. Pope covering. Dr. Lidner is his primary mercury recoverer. Renvela 2400 mg po tid ID: Monitor for signs and symptoms of infection. He is afebrile without evidence of infection currently. CXR with no consolidation. HEME: Chronic anemia Hgb is 10.8. Has been on Neupogen per nephrology and will defer management to them. Chronic anticoagulation for paroxysmal history of A. fib, history of DVT Warfarin 5 mg daily Friday, 2.5 mg sat Friday Daily INR will be ordered ENDO: Secondary hyperparathyroidism Adrenal insufficiency Hyperglycemia may be secondary to chronic steroid use. D3 2000 units daily, calcitriol 0.25 po daily. Patient has chronic adrenal insufficiency following over 30 years of prednisone use. Remains on prednisone 7 mg po bid which will continue for now but consider increasing to stress hydrocortisone if becomes more critically ill. Low dose insulin sliding scale ac/hs. MSK H/o gout H/O osteoarthritis PROPH:On warfarin with INR 2.4 which provides DVT prophylaxis. Protonix 20 mg daily for stress ulcer prophylaxis and history of GERD ACCESS: PIV providing adequate access. Has LUE fistula . 20 minutes additional care provider. Not critical care. Sekou Velez MD Sep 01, 2016 17:03
[2016-09-01] MEDS: WARFARIN SOD 2.5 MG TAB PO SCH (17:56)
[2016-09-01] MEDS: HYDROCORTISONE SOD SUCCINATE 100 MG VIAL IV PUSH SCH ×2 (18:09→21:35)
--- NOTE | 2016-09-01 18:58 | MB ---
cc: BOLIVAR ENRIQUEZ M.D., BARTON G. DO ZAHEDI, MINA M.D. DATE OF CONSULTATION: 09/01/2016. IMPRESSIONS: 1. 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 2. Valvular heart disease status post TAVR performed at [facility]; apparently no significant coronary artery disease. 3. End-stage renal disease. He has had two transplants, most recently in 1989. He is currently on peritoneal dialysis. 4. History of cardiomyopathy. 5. Hypertension. 6. History of DVT on chronic Coumadin therapy. 7. History of paroxysmal atrial fibrillation. 8. Esophageal reflux disease. 9. Peripheral neuropathy. RECOMMENDATIONS: 1. Nephrology consultation with more aggressive dialysis and fluid removal. 2. Echocardiogram. 3. Would continue the patient's same medications. The patient's troponins have been as high as 0.3 during this admission, although his creatinine is 8.4. CPKs are normal. CLINICAL DATA: Mr. Villatoro is a very pleasant 65-year-old male admitted to the hospital with chest discomfort. It apparently has been continuous for several days and indeed he is having it during our interview. He describes it as mid-sternal, non-radiating. There is a pleuritic component that increases with deep breathing. He has had no recent fever or chest trauma. He is on chronic warfarin. He tells me his last INR at home was 2.6. He has no history of atherosclerotic heart disease or myocardial infarction. He has had fluid overload and congestive heart failure in the past secondary to renal disease. Risk factors include hypertension. He apparently has no history of diabetes. He does have valvular heart disease and may have had rheumatic fever. He does not currently smoke. He rarely uses alcohol. ALLERGIES: HE HAS NO ALLERGIES TO MEDICATIONS. MEDICATIONS: His medications at the time of admission included: 1. Prednisone 7 milligrams daily. 2. Midrin 10 milligrams three times a day. 3. Warfarin alternating 5 and 2.5. 4. Gabapentin 100 twice a day. 5. Omeprazole 40 daily. 6. Proline 60 milligrams subcutaneous every three months. 7. Erythropoietin injections. 8. Renvela 800 three times a day. 9. Potassium chloride 10 milliequivalents three days a week. PAST SURGICAL HISTORY: 1. Cervical spine surgery. 2. Lumbar spine surgery. 3. Right shoulder surgery. 4. Cardiac catheterization. 5. TAVR. 6. He has had AV fistula created in the remote past. 7. He has a peritoneal dialysis catheter. 8. Most recent cardiac catheterization in 2013 prior to his TAVR. 9. He has no history of percutaneous coronary intervention or atherosclerotic heart disease. PAST MEDICAL HISTORY: 1. There is no history of seizure, stroke or TIA. 2. There is no history of asthma. 3. There may be a history of COPD. 4. Remote tobacco usage. 5. There is a history of esophageal reflux disease. 6. No history of liver or gallbladder disease. 7. There is a history of end-stage renal disease. 8. No history of thyroid disease. 9. The patient has had bleeding complications when admitted in the past with a subarachnoid hemorrhage apparently due to coagulopathy from warfarin. PHYSICAL EXAMINATION: GENERAL: The physical exam at this time demonstrates an alert, oriented male in no apparent distress. VITAL SIGNS: Blood pressure is 94/64, heart rate of 80 and regular. On the monitor, he appears to be in sinus rhythm with interventricular conduction delay. HEAD, EYES, EARS, NOSE, THROAT: Anicteric sclerae. Jugular venous pressures are elevated. No definite bruits are noted. There is a murmur radiating to the carotids. LUNGS: Auscultation of the lungs demonstrates diminished breath sounds in the bases. CARDIAC: Regular rate and rhythm. No definite gallops noted. There is a 1/6 systolic ejection murmur. EXTREMITIES: Free of cyanosis, clubbing or edema. IMAGING STUDIES: Chest x-ray demonstrates cardiomegaly and mild pulmonary edema. EKGS: EKGs demonstrate sinus rhythm, first-degree AV block, complete right bundle-branch block and right axis deviation. LABORATORY STUDIES: White blood cell count was 11,600, hematocrit 33%, platelet count 232,000. Electrolytes: 134, 3.6, 96, 24. BUN of 83, creatinine of 8.4, calcium 8.4. Phosphorus is not reported. Troponins elevated ranging between 0.3 and 0.08 with normal CPKs. Albumin is 2.7. DISCUSSION: This is a 65-year-old male with end-stage renal disease, valvular heart disease with a history of mitral stenosis which was apparently mild to moderate who was admitted to hospital with chest discomfort not related to myocardial ischemia. Symptoms are probably related to pulmonary venous hypertension. RECOMMENDATIONS: As noted above. An echocardiogram is pending at the time of this dictation. DO IRASEMA Andujar/SUSAN /2:38 PM /6:44 PM
[2016-09-01] MEDS ORDERED: VANCOMYCIN INJ 1,000 MG in SODIUM CHLOR 0.9% 250 ML INJ 250 ML IV ONE (20:00)
[2016-09-01] MEDS: AZITHROMYCIN INJ 500 MG in SODIUM CHLOR 0.9% 250 ML INJ 250 ML IV SCH (21:34)
[2016-09-01] MEDS: CEFEPIME INJ 2,000 MG in SODIUM CHLORIDE 0.9% INJ 100 ML IV SCH (21:34)
[2016-09-02] VITALS (14 sets, daily range): BP systolic 105–136; BP diastolic 56–78; PULSE 95–117; RESP 19–24; TEMP 97.8–98.6; O2SAT 91–97
[2016-09-02] MEDS ORDERED: BENZOCAINE-MENTHOL (SUGAR FREE) 15 MG-3.6 MG LOZENGE BUCCAL PRN (00:45)
[2016-09-02 03:37] LABS: AUTOMATED NEUTROPHIL # 16.6 TH/MM3 (1.8-7.7); HEMATOCRIT 32.1 % (39.0-51.0); HEMO FLAGS DIFF FINAL; LYMPH % 2.9 % (9.0-44.0); LYMPHOCYTE # 0.5 TH/MM3 (1.0-4.8); MEAN CELL VOLUME 92.8 FL (80.0-100.0); MEAN CORPUSCULAR HEMOGLOBIN 29.6 PG (27.0-34.0); MEAN CORPUSCULAR HGB CONC 31.9 % (32.0-36.0); MONO % 3.8 % (0.0-8.0); NEUT % 93.3 % (16.0-70.0); PLATELET COUNT 202 TH/MM3 (150-450); RED BLOOD COUNT 3.46 MIL/MM3 (4.50-5.90); RED CELL DISTRIBUTION WIDTH 14.8 % (11.6-17.2); WHITE BLOOD COUNT 17.8 TH/MM3 (4.0-11.0)
[2016-09-02] MEDS: CHLORHEXIDINE GLUCONATE 2 % 1 PACK (2 CLOTHS) TOP SCH (04:00)
[2016-09-02 04:07] LABS: INTERNATIONAL NORMALIZED RATIO 2.3 RATIO; PROTHROMBIN TIME - PATIENT 25.8 SEC (9.8-11.6)
[2016-09-02 04:13] LABS: BICARBONATE 22.3 MEQ/L (21.0-32.0); MAGNESIUM 2.2 MG/DL (1.5-2.5)
[2016-09-02 04:14] LABS: BICARBONATE 25.4 MEQ/L (21.0-32.0); POTASSIUM 4.1 MEQ/L (3.5-5.1)
--- NOTE | 2016-09-02 05:38 | RADRPT ---
EXAM DATE/TIME: 09/02/2016 04:55 [facility] COMPARISON: CHEST SINGLE AP, August 31, 2016, 18:57. INDICATIONS : Shortness of breath, possible pulmonary disease. MEDICAL HISTORY : Congestive heart failure. Chronic obstructive pulmonary disease. Deep venous thrombosis. GERD Gou t SURGICAL HISTORY : A-V fistula ENCOUNTER: Subsequent ACUITY: 3 days PAIN SCORE: Non-responsive. LOCATION: Bilateral chest FINDINGS: A single view of the chest demonstrates cardiomegaly with some slight interstitial prominence, improv ed. Heart replacement. Osseous structures are intact. CONCLUSION: 1. Cardiomegaly and interstitial edema, slightly improved. 2. Heart valve replacement. Pedro Piña MD on September 02, 2016 at 5:36 Board Certified Radiologist. This report was verified electronically.
[2016-09-02] MEDS: HYDROCORTISONE SOD SUCCINATE 100 MG VIAL IV PUSH SCH ×3 (06:44→21:04)
[2016-09-02] MEDS: INSULIN ASPART SUPPLEMENTAL SCALE SQ SCH ×4 (06:45→21:06)
[2016-09-02] MEDS: ACETAMINOPHEN/HYDROcodone 325 MG/5 MG TAB PO PRN (06:46)
[2016-09-02] MEDS: FLECAINIDE ACETATE 100 MG TAB PO SCH ×2 (08:41→21:04)
[2016-09-02] MEDS: CHOLECALCIFEROL (VIT D3) 1000 UNIT TAB PO SCH (08:41)
[2016-09-02] MEDS: CEFEPIME INJ 2,000 MG in SODIUM CHLORIDE 0.9% INJ 100 ML IV SCH (08:41)
[2016-09-02] MEDS: CALCITRIOL 0.25 MCG CAP PO SCH (08:41)
[2016-09-02] MEDS: SEVELAMER CARBONATE 800 MG TAB PO SCH ×3 (08:41→17:00)
[2016-09-02] MEDS: DOCUSATE SODIUM 50 MG/SENNA 8.6 MG TAB PO SCH ×2 (08:42→21:00)
[2016-09-02] MEDS: GABAPENTIN 100 MG CAP PO SCH ×2 (08:42→21:03)
[2016-09-02] MEDS: VITAMIN B CMPLX/VITC/FOLIC AC CAP PO SCH (08:42)
[2016-09-02] MEDS: MIDODRINE 5 MG TAB PO SCH ×3 (08:42→18:00)
[2016-09-02] MEDS: SODIUM CHLORIDE 0.9% FLUSH 10 ML FLUSH IV FLUSH SCH ×2 (09:00→21:03)
--- NOTE | 2016-09-02 09:45 | HHI.CCPN ---
Subjective Remarks/Hospital Course 65-year-old male with past medical history of ESRD. He has undergone renal transplant in the past in 1985 and 1989, has been on intermittent PD for last 3 years. Does 16 hours PD nightly starting at 5 pm. He also has h/o CHF ( nonischemic), h/o aortic stenosis s/p TAVR 03/2014, moderate mitral stenosis, HLD, COPD, A fib on anticoagulation with warfarin, DVT, GERD, peripheral neuropathy, sacral decubitus ulcer. He presented to [facility] emergency department today after he developed chest pain this morning while he was sitting in his wheelchair. He describes the pain as "a heaviness" constant 8/10 in midchest and "radiating to lungs" , worse with deep breath, associated with shortness of breath. He denies any fevers, cough, hemoptysis. He is chronically anticoagulated with warfarin and INR is 2.4. Chest x-ray demonstrates cardiomegaly, vascular congestion and pulmonary edema. Sodium is 134, BNP 2543, Troponin 0.08. EKG regular with RBBB and no ischemic changes. He reports compliance with PD regimen. Dr. Delgado has spoken with Dr. Anjana Pope who will initiate PD tonight. also notes he has been confused since receiving Morphine 6 mg IV and Dilaudid 1 mg IV in the ED. Subjective 09/01: Continues to have chest pain. Troponin has increased 0.3. Cardiology has been consulted. Chest pain is pleuritic. Not muscle skeletal. Generally feels weak. Medications adjusted see orders. 09/02 No events overnight. Tmax 101.2 yesterday Objective Vital Signs Date Time Temp Pulse Resp B/P Pulse Ox O2 Delivery O2 Flow Rate FiO2 09/02/16 08:00 100 09/02/16 08:00 97.8 24 110/72 97 09/02/16 07:34 Nasal Cannula 2.00 Intake and Output 09/01/16 09/01/16 09/02/16 08:00 16:00 00:00 Intake Total 100 ml 327 ml Output Total 826 ml Balance 100 ml -826 ml 327 ml Result Diagram: 09/02/16 0310 09/02/16 0310 Other Results Laboratory Tests Test 09/01/16 09/02/16 09/02/16 19:20 01:10 03:10 Lactic Acid Level 2.2 mmol/L Troponin I 0.27 NG/ML 0.23 NG/ML 0.22 NG/ML Random Cortisol 146.3 MCG/DL White Blood Count 17.8 TH/MM3 Red Blood Count 3.46 MIL/MM3 Hemoglobin 10.3 GM/DL Hematocrit 32.1 % Mean Corpuscular Volume 92.8 FL Mean Corpuscular Hemoglobin 29.6 PG Mean Corpuscular Hemoglobin 31.9 % Concent Red Cell Distribution Width 14.8 % Platelet Count 202 TH/MM3 Mean Platelet Volume 7.3 FL Neutrophils (%) (Auto) 93.3 % Lymphocytes (%) (Auto) 2.9 % Monocytes (%) (Auto) 3.8 % Eosinophils (%) (Auto) 0.0 % Basophils (%) (Auto) 0.0 % Neutrophils # (Auto) 16.6 TH/MM3 Lymphocytes # (Auto) 0.5 TH/MM3 Monocytes # (Auto) 0.7 TH/MM3 Eosinophils # (Auto) 0.0 TH/MM3 Basophils # (Auto) 0.0 TH/MM3 CBC Comment DIFF FINAL Differential Comment Prothrombin Time 25.8 SEC Prothromb Time International 2.3 RATIO Ratio Activated Partial 62.0 SEC Thromboplast Time Sodium Level 135 MEQ/L Potassium Level 4.1 MEQ/L Chloride Level 98 MEQ/L Carbon Dioxide Level 25.4 MEQ/L Anion Gap 12 MEQ/L Blood Urea Nitrogen 67 MG/DL Creatinine 8.08 MG/DL Estimat Glomerular Filtration 7 ML/MIN Rate Random Glucose 169 MG/DL Calcium Level 8.3 MG/DL Phosphorus Level 6.3 MG/DL Magnesium Level 2.2 MG/DL Imaging Last Impressions Chest X-Ray 09/02/16 0000 Signed Impressions: Service Date/Time: Friday, September 02, 2016 04:55 - CONCLUSION: 1. Cardiomegaly and interstitial edema, slightly improved. 2. Heart valve replacement. Pedro Piña MD Objective Remarks GENERAL: 65-year-old male, resting in bed in no acute distress SKIN: Warm and dry. There is ~ 2 x 2 centimeter cm stage II sacral decubitus ulcer with Mepilex in place. No surrounding erythema or drainage HEAD: Atraumatic. Normocephalic. EYES: Pupils equal and round, 3mm reactive to 2mm. No scleral icterus. No injection or drainage. ENT: No nasal bleeding or discharge. Mucous membranes pink and moist. NECK: Trachea midline. No JVD. CARDIOVASCULAR: RRR. S1, S2. No S4.. 3/6 systolic murmur at left lower sternal border and apex RESPIRATORY: B/l equal air entry GASTROINTESTINAL: Abdomen soft, non-tender, nondistended. Prior kidney graft palpated in left lower quadrant. Tenkhoff catheter in place, no exudate VASC: +thrill LUE fistula. MUSCULOSKELETAL: Extremities without significant peripheral edema. NEUROLOGICAL: Awake and alert. A/P Assessment and Plan NEURO: History of left posterior parietal subarachnoid hemorrhage Hard of hearing Peripheral neuropathy Status post cervical and lumbar fusion Bilateral cataracts Chronic narcotic use Continue Neurontin 100 mg po bid. Lortab as needed for pain RESP: Acute respiratory insufficiency Pulmonary edema History of pulmonary hypertension Continue with oxygen keep sat > 92% Incentive spirometry while awake Bronchodilators, V/Q scan today showed low prob PE CV: h/o aortic stenosis s/p TAVR Mitral stenosis Pulmonary HTN CHF, nonischemic RBBB Paroxysmal Atrial fibrillation History of orthostatic hypotension ASA given in ED. Monitor HR and BP keep MAP>65mmHg Continue Flecainide 75 mg po bid, Midodrine 10 mg by mouth 3 times a day. Continue anticoagulation with warfarin for A. fib Cards is following, follow up on echo results GI: GERD Renal diet Bowel regimen per protocol On Protonix 20 mg by mouth daily. FEN/RENAL: ESRD - peritoneal dialysis Hyponatremia Hyperphosphatemia Monitor renal function, avoid nephrotoxins. On peritoneal dialysis x 3 years. PD per nephrology, Dr. Pope covering. Renvela 2400 mg po tid ID: Continue with abx ( Cefepime, Zithromax)Monitor for signs and symptoms of infection. Follow up on from 09/01 HEME: Chronic anemia Chronic anticoagulation for paroxysmal history of A. fib, history of DVT Warfarin 5 mg daily Friday, 2.5 mg sat Friday Monitor INR 2.3 today ENDO: Secondary hyperparathyroidism Adrenal insufficiency Hyperglycemia may be secondary to chronic steroid use. D3 2000 units daily, calcitriol 0.25 po daily. Patient has chronic adrenal insufficiency following over 30 years of prednisone use. On Hydrocortisone 100mg Q8 Low dose insulin sliding scale ac/hs. MSK H/o gout H/O osteoarthritis PROPH:On warfarin with INR 2.3 today which provides DVT prophylaxis. Protonix 20 mg daily for stress ulcer prophylaxis and history of GERD ACCESS: PIV providing adequate access. Has LUE fistula . Discussed with patient's and updated her on patient's condition. Will sign off and transfer care to [facility] Level 3 Jesse Chatterjee MD Sep 02, 2016 09:45
--- NOTE | 2016-09-02 10:34 | PD.CARD.PN ---
Subjective Subjective Remarks Patient complains of cough, SOB. He denies CP this morning. Objective Medications Current Medications Medications (Trade) Dose Ordered Sig/Katina Route Start Time Stop Time Status Last Admin (Rocaltrol) 0.25 mcg DAILY PO 09/01/16 09:00 09/02/16 08:41 (Vitamin D3) 2,000 units DAILY PO 09/01/16 09:00 09/02/16 08:41 (Tambocor) 75 mg BID PO 09/01/16 00:30 09/02/16 08:41 (Neurontin) 100 mg BID PO 09/01/16 00:30 09/02/16 08:42 (Coumadin) 2.5 mg SuTuThSa@16 PO 09/01/16 16:00 09/01/16 17:56 (Coumadin) 5 mg MoWeFr@16 PO 09/02/16 16:00 (Nephrocaps) 1 cap DAILY PO 09/01/16 09:00 09/02/16 08:42 (Protonix) 20 mg HS PO 09/01/16 00:45 09/01/16 21:35 (Proamatine) 10 mg TID PO 09/01/16 09:00 09/02/16 08:42 (Pill Splitter) 1 ea UNSCH PRN OTHER 09/01/16 01:00 09/01/16 11:12 (NS Flush) 2 ml UNSCH PRN IV FLUSH 09/01/16 01:00 (NS Flush) 2 ml BID IV FLUSH 09/01/16 09:00 09/01/16 21:34 (Tylenol) 650 mg Q6H PRN PO 09/01/16 01:00 09/01/16 21:43 ([place] 5-325 Mg) 1 tab Q4H PRN PO 09/01/16 01:00 09/02/16 06:46 (Zofran Inj) 4 mg Q6H PRN IV 09/01/16 01:00 Miscellaneous Information 1 Q361D XX 09/01/16 01:00 09/01/16 01:00 (Chlorhexidine 2% Cloth) 3 pack Taper DAILY@04 TOP 09/01/16 04:00 08/28/17 03:59 09/01/16 02:25 (Chlorhexidine 2% Cloth) 3 pack UNSCH PRN TOP 09/01/16 01:00 (Leah-Colace) 1 tab BID PO 09/01/16 09:00 09/02/16 08:42 (Milk Of Magnesia Liq) 30 ml Q12H PRN PO 09/01/16 01:00 (Senokot) 17.2 mg Q12H PRN PO 09/01/16 01:00 (Dulcolax Supp) 10 mg DAILY PRN RECTAL 09/01/16 01:00 (Lactulose Liq) 30 ml DAILY PRN PO 09/01/16 01:00 (D50w (Vial) Inj) 50 ml UNSCH PRN IV 09/01/16 02:00 (Glucagon Inj) 1 mg UNSCH PRN OTHER 09/01/16 02:00 (Renvela) 2,400 mg TIDAC PO 09/01/16 17:00 09/02/16 08:41 Hydrocortisone Sodium Succinate 100 mg 100 mg Q8HR IV PUSH 09/01/16 17:45 09/02/16 06:44 (Zithromax Inj/ NS 250 ml Inj) 250 ml @ 250 mls/hr Q24H IV 09/01/16 20:00 09/01/16 21:34 (Cepacol Extra Katty (Sugar Free)) 1 lozenge Q4H PRN BUCCAL 09/02/16 00:45 Vital Signs / I&O Vital Signs Date Time Temp Pulse Resp B/P Pulse Ox O2 Delivery O2 Flow Rate FiO2 09/02/16 08:00 100 09/02/16 08:00 97.8 117 24 110/72 97 09/02/16 07:34 91 Nasal Cannula 2.00 09/02/16 06:00 104 09/02/16 04:00 100 09/02/16 04:00 98.0 100 19 107/56 95 09/02/16 02:00 99 09/02/16 00:00 98.0 95 23 105/74 92 09/02/16 00:00 95 09/01/16 22:03 92 Nasal Cannula 2.00 09/01/16 22:00 76 09/01/16 20:00 100.1 81 23 103/61 93 09/01/16 20:00 81 09/01/16 19:00 93 24 107/68 94 09/01/16 18:45 101.2 09/01/16 18:00 115 24 80/51 85 09/01/16 17:00 91 24 95/60 93 09/01/16 16:00 99.5 86 22 98/59 95 09/01/16 15:00 87 26 99/61 93 09/01/16 14:00 87 22 93/57 95 09/01/16 13:32 22 09/01/16 13:00 87 17 103/62 87 09/01/16 12:02 98.4 90 26 142/80 92 09/01/16 11:00 85 20 89/56 93 I/O 09/01/16 09/01/16 09/01/16 09/02/16 09/02/16 09/02/16 07:00 15:00 23:00 07:00 15:00 23:00 Intake Total 100 ml 327 ml 120 ml Output Total 826 ml 941 ml Balance 100 ml -826 ml 327 ml 120 ml -941 ml Intake Oral 100 ml 120 ml 120 ml IV Total 207 ml 0 ml Output Peritoneal Fluid 826 ml Hemodialysis 941 ml # Voids 0 0 0 # Bowel Movements 0 0 0 Physical Exam GENERAL: Ill appearing male in ICU SKIN: Warm and dry. HEAD: Normocephalic. EYES: No scleral icterus. No injection or drainage. NECK: Supple, trachea midline. 2 cm JVD CARDIOVASCULAR: Irregularly irreg, mumur, trace lower extremity edema RESPIRATORY: Right rales, nasal cannula with some epistaxis GASTROINTESTINAL: Abdomen soft, non-tender, nondistended. MUSCULOSKELETAL: No cyanosis, or edema. BACK: Nontender without obvious deformity. No CVA tenderness. Laboratory Laboratory Tests Test 09/01/16 09/02/16 09/02/16 19:20 01:10 03:10 Lactic Acid Level 2.2 mmol/L Troponin I 0.27 NG/ML 0.23 NG/ML 0.22 NG/ML Random Cortisol 146.3 MCG/DL White Blood Count 17.8 TH/MM3 Red Blood Count 3.46 MIL/MM3 Hemoglobin 10.3 GM/DL Hematocrit 32.1 % Mean Corpuscular Volume 92.8 FL Mean Corpuscular Hemoglobin 29.6 PG Mean Corpuscular Hemoglobin 31.9 % Concent Red Cell Distribution Width 14.8 % Platelet Count 202 TH/MM3 Mean Platelet Volume 7.3 FL Neutrophils (%) (Auto) 93.3 % Lymphocytes (%) (Auto) 2.9 % Monocytes (%) (Auto) 3.8 % Eosinophils (%) (Auto) 0.0 % Basophils (%) (Auto) 0.0 % Neutrophils # (Auto) 16.6 TH/MM3 Lymphocytes # (Auto) 0.5 TH/MM3 Monocytes # (Auto) 0.7 TH/MM3 Eosinophils # (Auto) 0.0 TH/MM3 Basophils # (Auto) 0.0 TH/MM3 CBC Comment DIFF FINAL Differential Comment Prothrombin Time 25.8 SEC Prothromb Time International 2.3 RATIO Ratio Activated Partial 62.0 SEC Thromboplast Time Sodium Level 135 MEQ/L Potassium Level 4.1 MEQ/L Chloride Level 98 MEQ/L Carbon Dioxide Level 25.4 MEQ/L Anion Gap 12 MEQ/L Blood Urea Nitrogen 67 MG/DL Creatinine 8.08 MG/DL Estimat Glomerular Filtration 7 ML/MIN Rate Random Glucose 169 MG/DL Calcium Level 8.3 MG/DL Phosphorus Level 6.3 MG/DL Magnesium Level 2.2 MG/DL Imaging Last 72 hours Impressions Chest X-Ray 09/02/16 0000 Signed Impressions: Service Date/Time: Friday, September 02, 2016 04:55 - CONCLUSION: 1. Cardiomegaly and interstitial edema, slightly improved. 2. Heart valve replacement. Pedro Piña MD Chest X-Ray 08/31/16 1837 Signed Impressions: Service Date/Time: Wednesday, August 31, 2016 18:57 - CONCLUSION: Cardiomegaly and chronic interstitial disease. These findings are stable. Tato Mayes MD Assessment and Plan Assessment and Plan ASSESSMENT Chest pain with slightly elevated troponins. Chest pain and elevated troponin due to pulmonary edema and fluid overload. Atrial fibrillation on coumadin ASHD, heart cath 01/2014 TAVR 03/2014 Moderate- severe mitral stenosis echo 07/[address] Hart. Leukocytosis- on Solumedrol PLAN Pending cardiac echo Antibiotics Diuresis/dialysis per nephrology Pending VQ Patient seen and evaluated by Shaylee Muse Sep 02, 2016 10:34
[2016-09-02] MEDS: RESP: ALBUTEROL 2.5 MG/IPRATROPIUM 0.5 MG NEB (SCH) NEB ×4 (11:22→23:39)
--- NOTE | 2016-09-02 12:04 | RADRPT ---
EXAM DATE/TIME: 09/02/2016 11:20 [facility] COMPARISON: CHEST SINGLE AP, September 02, 2016, 4:55. INDICATIONS : Dyspnea. Chest discomfort. DOSE: 8.1 mCi Tc99m MAA IV 0.47 mCi Tc99m DTPA aerosol MEDICAL HISTORY : Chronic obstructive pulmonary disease. Congestive heart failure. Hypercholesterolemia. Atrial fibrill ation. Renal failure. Deep vein thrombosis. SURGICAL HISTORY : Nephrectomy, left. AV shunt. Cardiac catherization. Aortic valve replacement. ENCOUNTER: Initial ACUITY: 1 day PAIN SCALE: 2/10 LOCATION: chest TECHNIQUE: Following five minutes of tidal breathing of DTPA aerosol, planar images of the lungs were performed in eight projections. The patient was then injected with MAA, and eight-view perfusion scan was perf ormed. FINDINGS: There is a single large V/Q match in the left lung base. Otherwise perfusion is better than ventilat ion throughout the projections. I do not see significant V/Q mismatch. CONCLUSION: Single large V/Q match , low probability for pulmonary embolism. embolism. Myron Damian MD FACR on September 02, 2016 at 11:54 Board Certified Radiologist. This report was verified electronically.
--- NOTE | 2016-09-02 14:22 | EKG ---
Date Performed: 09/01/2016 Time Performed: 13:43:18 PTAGE: 65 years EKG: Indeterminate atrial rhythm MARKED RIGHT AXIS DEVIATION RIGHT BUNDLE BRANCH BLOCK ABNORMAL ECG PREVIOUS TRACING : 09/01/2016 07.02 Consider lateral myocardial infarction - age indeterminate DOCTOR: Rolf Presley Interpretating Date/Time 09/02/2016 14:31:23
--- NOTE | 2016-09-02 14:22 | EKG ---
Date Performed: 09/02/2016 Time Performed: 03:00:46 PTAGE: 65 years EKG: CONSIDER ACUTE ST ELEVATION [place] Atrial fibrillation. Lead(s) unsuitable for analysis : V2 Right axis deviation Right bundle branch block Consider lateral myocardial infarction - age inde terminate Lateral ST changes may be due to myocardial ischemia Low QRS voltages in limb leads Abnorma l ECG PREVIOUS TRACING : 09/01/2016 18.39 DOCTOR: Rolf Presley Interpretating Date/Time 09/02/2016 14:21:40
--- NOTE | 2016-09-02 14:22 | EKG ---
Date Performed: 09/01/2016 Time Performed: 18:39:26 PTAGE: 65 years EKG: ATRIAL FIBRILLATION RIGHT BUNDLE BRANCH BLOCK LATERAL MYOCARDIAL INFARCTION , OF INDETERMIN ATE AGE ABNORMAL ECG PREVIOUS TRACING : 09/01/2016 13.43 Consider lateral myocardial infarction - age indeterminate Compared to prior tracing no significant change DOCTOR: Rolf Presley Interpretating Date/Time 09/02/2016 14:31:51
--- NOTE | 2016-09-02 14:33 | HHI.PR ---
Subjective History of Present Illness Alert, oriented, currently on oxygen facemask, no resting dyspnea chest pain is improved, symptoms of his , she stated that he not eating much Review of Systems Constitutional Constitutional Remarks General weakness, poor appetite, dyspnea on minimal activity, baseline ambulation on wheelchair only, 10 systems reviewed otherwise negative Vitals/Results Intake & Output 09/01/16 09/01/16 09/02/16 15:00 23:00 07:00 Intake Total 327 ml 120 ml Output Total 826 ml Balance -826 ml 327 ml 120 ml Intake Oral 120 ml 120 ml IV Total 207 ml 0 ml Output Peritoneal Fluid 826 ml # Voids 0 0 # Bowel Movements 0 0 Vital Signs Vital Signs Date Time Temp Pulse Resp B/P Pulse Ox O2 Delivery O2 Flow Rate FiO2 09/02/16 14:00 100 09/02/16 12:00 100 09/02/16 12:00 98.0 103 24 107/64 97 09/02/16 10:00 100 09/02/16 08:00 100 09/02/16 08:00 97.8 117 24 110/72 97 09/02/16 07:34 91 Nasal Cannula 2.00 09/02/16 06:00 104 09/02/16 04:00 100 09/02/16 04:00 98.0 100 19 107/56 95 09/02/16 02:00 99 09/02/16 00:00 98.0 95 23 105/74 92 09/02/16 00:00 95 09/01/16 22:03 92 Nasal Cannula 2.00 09/01/16 22:00 76 09/01/16 20:00 100.1 81 23 103/61 93 09/01/16 20:00 81 09/01/16 19:00 93 24 107/68 94 09/01/16 18:45 101.2 09/01/16 18:00 115 24 80/51 85 09/01/16 17:00 91 24 95/60 93 09/01/16 16:00 99.5 86 22 98/59 95 09/01/16 15:00 87 26 99/61 93 CBC/BMP: 09/02/16 0310 09/02/16 0310 Lab Results Laboratory Tests Test 09/01/16 09/02/16 09/02/16 19:20 01:10 03:10 Lactic Acid Level 2.2 mmol/L Troponin I 0.27 NG/ML 0.23 NG/ML 0.22 NG/ML Random Cortisol 146.3 MCG/DL White Blood Count 17.8 TH/MM3 Red Blood Count 3.46 MIL/MM3 Hemoglobin 10.3 GM/DL Hematocrit 32.1 % Mean Corpuscular Volume 92.8 FL Mean Corpuscular Hemoglobin 29.6 PG Mean Corpuscular Hemoglobin 31.9 % Concent Red Cell Distribution Width 14.8 % Platelet Count 202 TH/MM3 Mean Platelet Volume 7.3 FL Neutrophils (%) (Auto) 93.3 % Lymphocytes (%) (Auto) 2.9 % Monocytes (%) (Auto) 3.8 % Eosinophils (%) (Auto) 0.0 % Basophils (%) (Auto) 0.0 % Neutrophils # (Auto) 16.6 TH/MM3 Lymphocytes # (Auto) 0.5 TH/MM3 Monocytes # (Auto) 0.7 TH/MM3 Eosinophils # (Auto) 0.0 TH/MM3 Basophils # (Auto) 0.0 TH/MM3 CBC Comment DIFF FINAL Differential Comment Prothrombin Time 25.8 SEC Prothromb Time International 2.3 RATIO Ratio Activated Partial 62.0 SEC Thromboplast Time Sodium Level 135 MEQ/L Potassium Level 4.1 MEQ/L Chloride Level 98 MEQ/L Carbon Dioxide Level 25.4 MEQ/L Anion Gap 12 MEQ/L Blood Urea Nitrogen 67 MG/DL Creatinine 8.08 MG/DL Estimat Glomerular Filtration 7 ML/MIN Rate Random Glucose 169 MG/DL Calcium Level 8.3 MG/DL Phosphorus Level 6.3 MG/DL Magnesium Level 2.2 MG/DL Microbiology Microbiology 09/01/16 Aerobic Blood Culture - Preliminary, Resulted NO GROWTH IN 1 DAY 09/01/16 Anaerobic Blood Culture - Preliminary, Resulted NO GROWTH IN 1 DAY 09/01/16 Aerobic Blood Culture - Preliminary, Resulted NO GROWTH IN 1 DAY 09/01/16 Anaerobic Blood Culture - Preliminary, Resulted NO GROWTH IN 1 DAY Physical Exam General General Appearance: Comfortable, Pale Eyes Eye Exam: Pupils Reactive Ears & Nose Ears & Nose Exam: Nasal Mucosa [place] Throat Throat Exam: Oral Mucosa [place] & Moist Neck Neck Exam: Trachea Midline Pulmonary Resp Exam: Crackles, Rhonchi Cardiology CV Exam: Tachycardia Gastrointestinal/Abdomen GI Exam: Non-Tender, Bowel Sounds Present Musculoskeletal MS Exam: Normal Tone Integumentary Skin Exam: Warm Extremeties Extremities Exam: No Edema Neurologic Neuro Exam: Awake, Speech Clear Psychiatric Psych Exam: Appropriate Responses VTE Prophylaxis VTE Prophylaxis Meds: Coumadin Assessment/Plan Assessment/Plan Assessment Admitted with respiratory insufficiency, improved Pulmonary edema, improved Hypoxemia, improved VQ scan low probability for PE End-stage renal disease on peritoneal dialysis Pulmonary hypertension Aortic stenosis status post TAVR Nonischemic cardiomyopathy Paroxysmal atrial fibrillation Anemia of chronic disease Deconditioning Chronic debility on a wheelchair hx COPD, subarachnoid hemorrhage, peripheral neuropathy, cervical and lumbar fusion, Hearing loss, bilateral cataracts, chronic narcotic use, renal transplantation twice, Nonischemic cardiomyopathy,Paroxysmal atrial fibrillation on flecainide, mitral stenosis, RBBB, Orthostatic hypotension on long-term midodrine Management Continue supplemental oxygen Continue dialysis Transfer to telemetry Keep in negative fluid balance if possible Cardiology and nephrology following [employer] Manager signed off Follow echo report Continue Coumadin, keep INR between 2 and 3 Discussed with patient and his Discussed with nurse 35 minutes Vlad Baltazar MD Sep 02, 2016 14:33 Vlad Baltazar MD Sep 02, 2016 14:33
[2016-09-02] MEDS: WARFARIN SOD 5 MG TAB PO SCH (16:00)
--- NOTE | 2016-09-02 16:21 | HHI.NPPN ---
Subjective History of Present Illness 65-year-old on PD with congestive heart failure Review of Systems General Constitutional: Fatigue Objective Data Data 09/01/16 09/02/16 19:00 07:00 Intake Total 447 ml Output Total 826 ml Balance -826 ml 447 ml Intake Oral 240 ml IV Total 207 ml Output Peritoneal Fluid 826 ml # Voids 0 # Bowel Movements 0 Vital Signs Date Time Temp Pulse Resp B/P Pulse Ox O2 Delivery O2 Flow Rate FiO2 09/02/16 16:00 98.0 108 24 136/78 97 09/02/16 16:00 107 09/02/16 14:00 100 09/02/16 12:00 100 09/02/16 12:00 98.0 103 24 107/64 97 09/02/16 10:00 100 09/02/16 08:00 100 09/02/16 08:00 97.8 117 24 110/72 97 09/02/16 07:34 91 Nasal Cannula 2.00 09/02/16 06:00 104 09/02/16 04:00 100 09/02/16 04:00 98.0 100 19 107/56 95 09/02/16 02:00 99 09/02/16 00:00 98.0 95 23 105/74 92 09/02/16 00:00 95 09/01/16 22:03 92 Nasal Cannula 2.00 09/01/16 22:00 76 09/01/16 20:00 100.1 81 23 103/61 93 09/01/16 20:00 81 09/01/16 19:00 93 24 107/68 94 09/01/16 18:45 101.2 09/01/16 18:00 115 24 80/51 85 09/01/16 17:00 91 24 95/60 93 -: 09/02/16 0310 09/02/16 0310 Microbiology 09/01/16 Aerobic Blood Culture - Preliminary, Resulted NO GROWTH IN 1 DAY 09/01/16 Anaerobic Blood Culture - Preliminary, Resulted NO GROWTH IN 1 DAY 09/01/16 Aerobic Blood Culture - Preliminary, Resulted NO GROWTH IN 1 DAY 09/01/16 Anaerobic Blood Culture - Preliminary, Resulted NO GROWTH IN 1 DAY Physical Exam General Appearance: Well Developed Neck Neck Exam: Neck Supple Pulmonary Resp Exam: Decreased Bases Cardiology CV Exam: Arrhythmia Gastrointestinal/Abdomen GI Exam: Soft, Non-Tender Extremeties Extremities Exam: Moderate Edema Assessment/Plan Problem List: (1) ESRD (end stage renal disease) on dialysis Plan: Patient received dialysis the UF is 941 cc Continue to dialyze him follow clinically (2) Congestive heart failure Plan: Patient has Zachary May MD Sep 02, 2016 16:21
[2016-09-02] MEDS: AZITHROMYCIN INJ 500 MG in SODIUM CHLOR 0.9% 250 ML INJ 250 ML IV SCH (21:03)
[2016-09-02] MEDS: PANTOPRAZOLE SOD 20 MG DELAYED RELEASE TAB PO SCH (21:04)
[2016-09-02] MEDS: CARBAMIDE PEROXIDE 6.5% OTIC SOLN 15 ML BTL RIGHT EAR SCH (23:32)
[2016-09-03] VITALS (18 sets, daily range): BP systolic 90–120; BP diastolic 49–70; PULSE 82–119; RESP 14–56; TEMP 97.8–98.6; O2SAT 90–100
[2016-09-03] MEDS: RESP: ALBUTEROL 2.5 MG/IPRATROPIUM 0.5 MG NEB (SCH) NEB ×5 (03:48→18:54)
[2016-09-03] MEDS: CHLORHEXIDINE GLUCONATE 2 % 1 PACK (2 CLOTHS) TOP SCH (04:00)
[2016-09-03 05:26] LABS: AUTOMATED NEUTROPHIL # 12.5 TH/MM3 (1.8-7.7); BASOPHIL % 0.1 % (0.0-2.0); HEMO FLAGS DIFF FINAL; LYMPH % 1.7 % (9.0-44.0); LYMPHOCYTE # 0.2 TH/MM3 (1.0-4.8); MEAN CELL VOLUME 92.5 FL (80.0-100.0); MEAN CORPUSCULAR HEMOGLOBIN 30.7 PG (27.0-34.0); MEAN CORPUSCULAR HGB CONC 33.1 % (32.0-36.0); MONO % 3.7 % (0.0-8.0); NEUT % 94.5 % (16.0-70.0); PLATELET COUNT 208 TH/MM3 (150-450); RED BLOOD COUNT 3.25 MIL/MM3 (4.50-5.90); WHITE BLOOD COUNT 13.2 TH/MM3 (4.0-11.0)
[2016-09-03 05:35] LABS: INTERNATIONAL NORMALIZED RATIO 2.1 RATIO; PROTHROMBIN TIME - PATIENT 24.3 SEC (9.8-11.6)
[2016-09-03 05:55] LABS: BICARBONATE 23.6 MEQ/L (21.0-32.0); POTASSIUM 3.6 MEQ/L (3.5-5.1)
[2016-09-03] MEDS: HYDROCORTISONE SOD SUCCINATE 100 MG VIAL IV PUSH SCH ×3 (06:40→21:55)
[2016-09-03] MEDS: INSULIN ASPART SUPPLEMENTAL SCALE SQ SCH ×4 (06:41→21:56)
[2016-09-03] MEDS: DOCUSATE SODIUM 50 MG/SENNA 8.6 MG TAB PO SCH ×2 (09:00→21:00)
[2016-09-03] MEDS: CHOLECALCIFEROL (VIT D3) 1000 UNIT TAB PO SCH (09:44)
[2016-09-03] MEDS: VITAMIN B CMPLX/VITC/FOLIC AC CAP PO SCH (09:44)
[2016-09-03] MEDS: MIDODRINE 5 MG TAB PO SCH ×3 (09:44→17:23)
[2016-09-03] MEDS: GABAPENTIN 100 MG CAP PO SCH ×2 (09:44→21:54)
[2016-09-03] MEDS: CALCITRIOL 0.25 MCG CAP PO SCH (09:44)
[2016-09-03] MEDS: FLECAINIDE ACETATE 100 MG TAB PO SCH ×2 (09:45→21:53)
[2016-09-03] MEDS: SODIUM CHLORIDE 0.9% FLUSH 10 ML FLUSH IV FLUSH SCH ×2 (09:46→21:54)
[2016-09-03] MEDS: CARBAMIDE PEROXIDE 6.5% OTIC SOLN 15 ML BTL RIGHT EAR SCH (09:47)
[2016-09-03] MEDS: SEVELAMER CARBONATE 800 MG TAB PO SCH ×3 (09:52→17:23)
[2016-09-03] MEDS: CEFEPIME INJ 2,000 MG in SODIUM CHLORIDE 0.9% INJ 100 ML IV SCH (09:53)
--- NOTE | 2016-09-03 11:21 | HHI.PR ---
Subjective Subjective Remarks confused and disoriented last night, called his states he was having a bad nightmare that he could not wake up from noted increase tremors, mostly hands also noted in his legs sees dr. Tracey for peripheral neuropathy, was recently on high dose steroids until he was weaned off to his regular dosage of Prednisone 7.5 mg po daily. pt. oriented x 3, able to recall undersign from previous admission no cp no sob feels weak, wants to get out of bed per , has become deconditioned, and now spends more time in wheelchair at bsd Review of Systems Constitutional Constitutional Remarks 12 point review of systems completed, negative except as noted above Vitals/Results Intake & Output 09/02/16 09/02/16 09/03/16 15:00 23:00 07:00 Intake Total 640 ml 370 ml 250 ml Output Total 941 ml 0 ml Balance -301 ml 370 ml 250 ml Intake Oral 640 ml 120 ml 0 ml IV Total 250 ml 250 ml Output Urine Total 0 ml Stool Total 0 ml Hemodialysis 941 ml # Voids 0 0 # Bowel Movements 0 0 Vital Signs Vital Signs Date Time Temp Pulse Resp B/P Pulse Ox O2 Delivery O2 Flow Rate FiO2 09/03/16 07:41 100 Nasal Cannula 2.00 09/03/16 06:00 97 09/03/16 04:00 107 09/03/16 04:00 98.0 107 17 120/63 95 09/03/16 02:00 89 09/03/16 00:00 98.6 102 56 90/50 90 09/03/16 00:00 102 09/02/16 22:00 95 09/02/16 20:00 106 09/02/16 20:00 98.6 106 20 119/59 94 09/02/16 19:27 95 Nasal Cannula 2.00 09/02/16 18:00 107 09/02/16 16:00 98.0 108 24 136/78 97 09/02/16 16:00 107 09/02/16 14:00 100 09/02/16 12:00 100 09/02/16 12:00 98.0 103 24 107/64 97 CBC/BMP: 09/03/16 0450 09/03/16 0450 Lab Results Laboratory Tests Test 09/03/16 04:50 White Blood Count 13.2 TH/MM3 Red Blood Count 3.25 MIL/MM3 Hemoglobin 10.0 GM/DL Hematocrit 30.0 % Mean Corpuscular Volume 92.5 FL Mean Corpuscular Hemoglobin 30.7 PG Mean Corpuscular Hemoglobin 33.1 % Concent Red Cell Distribution Width 15.0 % Platelet Count 208 TH/MM3 Mean Platelet Volume 7.5 FL Neutrophils (%) (Auto) 94.5 % Lymphocytes (%) (Auto) 1.7 % Monocytes (%) (Auto) 3.7 % Eosinophils (%) (Auto) 0.0 % Basophils (%) (Auto) 0.1 % Neutrophils # (Auto) 12.5 TH/MM3 Lymphocytes # (Auto) 0.2 TH/MM3 Monocytes # (Auto) 0.5 TH/MM3 Eosinophils # (Auto) 0.0 TH/MM3 Basophils # (Auto) 0.0 TH/MM3 CBC Comment DIFF FINAL Differential Comment Prothrombin Time 24.3 SEC Prothromb Time International 2.1 RATIO Ratio Sodium Level 134 MEQ/L Potassium Level 3.6 MEQ/L Chloride Level 94 MEQ/L Carbon Dioxide Level 23.6 MEQ/L Anion Gap 16 MEQ/L Blood Urea Nitrogen 68 MG/DL Creatinine 8.01 MG/DL Estimat Glomerular Filtration 7 ML/MIN Rate Random Glucose 199 MG/DL Calcium Level 7.9 MG/DL Physical Exam General General Appearance: Well Developed, Comfortable, Pale Eyes Eye Exam: Pupils Reactive Ears & Nose Ears & Nose Exam: Nasal Mucosa [place] Throat Throat Exam: Oral Mucosa [place] & Moist Neck Neck Exam: Trachea Midline Pulmonary Resp Exam: Crackles Resp Remarks bibasilar rales Cardiology CV Exam: Regular, Murmur Gastrointestinal/Abdomen GI Exam: Non-Tender, Bowel Sounds Present, Non-Distended GI Remarks PD catheter Musculoskeletal MS Exam: Normal Tone Integumentary Skin Exam: Warm, Dry Extremeties Extremities Exam: No Edema, Pedal Pulses Palpable Neurologic Neuro Exam: Alert, Awake, Oriented, Speech Clear, Moving All Extremities, Release Manager Equal Psychiatric Psych Exam: Appropriate Responses VTE Prophylaxis VTE Prophylaxis Meds: Coumadin Assessment/Plan Assessment/Plan Assessment Admitted with respiratory insufficiency, improved Pulmonary edema, improved Hypoxemia, improved VQ scan low probability for PE End-stage renal disease on peritoneal dialysis Pulmonary hypertension Aortic stenosis status post TAVR Nonischemic cardiomyopathy Paroxysmal atrial fibrillation Anemia of chronic disease Deconditioning Chronic debility on a wheelchair hx COPD, subarachnoid hemorrhage, peripheral neuropathy, cervical and lumbar fusion, Hearing loss, bilateral cataracts, chronic narcotic use, renal transplantation twice, Nonischemic cardiomyopathy,Paroxysmal atrial fibrillation on flecainide, mitral stenosis, RBBB, Orthostatic hypotension on long-term midodrine confusion and tremors Management CCM signed off Continue supplemental oxygen Duonebs PRN on Hydrocortisone, dec.to 50 mg IV q 8 Continue peritoneal dialysis Keep in negative fluid balance if possible Cardiology and nephrology following Follow echo report pending Continue Coumadin, keep INR between 2 and 3 Inc. activity, out of bed with PT continue accuchecks AC/HS with low dose ISS Confused at night, noted with tremors Brain MRI today EEG Neurology consult Transfer out of ICU Labs in am CM for dc planning 1-2 days Discussed with patient and his Discussed with nurse Discussed with Dr. Baltazar This patient was seen by myself and Dr. Baltazar, this note is written on his behalf Tierra Meyer Sep 03, 2016 11:21
--- NOTE | 2016-09-03 13:34 | HHI.NPPN ---
Subjective History of Present Illness 65-year-old on PD with congestive heart failure Review of Systems General Constitutional: Fatigue Objective Data Data 09/02/16 09/03/16 19:00 07:00 Intake Total 640 ml 620 ml Output Total 941 ml 0 ml Balance -301 ml 620 ml Intake Oral 640 ml 120 ml IV Total 500 ml Output Urine Total 0 ml Stool Total 0 ml Hemodialysis 941 ml # Voids 0 0 # Bowel Movements 0 0 Vital Signs Date Time Temp Pulse Resp B/P Pulse Ox O2 Delivery O2 Flow Rate FiO2 09/03/16 10:00 96 09/03/16 08:00 95 09/03/16 08:00 97.8 95 14 111/58 98 09/03/16 07:41 100 Nasal Cannula 2.00 09/03/16 06:00 97 09/03/16 04:00 107 09/03/16 04:00 98.0 107 17 120/63 95 09/03/16 02:00 89 09/03/16 00:00 98.6 102 56 90/50 90 09/03/16 00:00 102 09/02/16 22:00 95 09/02/16 20:00 106 09/02/16 20:00 98.6 106 20 119/59 94 09/02/16 19:27 95 Nasal Cannula 2.00 09/02/16 18:00 107 09/02/16 16:00 98.0 108 24 136/78 97 09/02/16 16:00 107 09/02/16 14:00 100 -: 09/03/16 0450 09/03/16 0450 Physical Exam General Appearance: Well Developed, Comfortable, Pale Eyes Eye Exam: Pupils Reactive Ears & Nose Ears & Nose Exam: Nasal Mucosa [place] Throat Throat Exam: Oral Mucosa [place] & Moist Neck Neck Exam: Trachea Midline Pulmonary Resp Exam: Crackles Cardiology CV Exam: Regular, Murmur Gastrointestinal/Abdomen GI Exam: Non-Tender, Bowel Sounds Present, Non-Distended Musculoskeletal MS Exam: Normal Tone Integumentary Skin Exam: Warm, Dry Extremeties Extremities Exam: No Edema, Pedal Pulses Palpable Neurologic Neuro Exam: Alert, Awake, Oriented, Speech Clear, Moving All Extremities, Cafeteria Counter Attendant Equal Psychiatric Psych Exam: Appropriate Responses Assessment/Plan Problem List: (1) ESRD (end stage renal disease) on dialysis Plan: Patient received dialysis UF is 611 cc Continue to dialyze him follow clinically (2) Congestive heart failure Plan: Patient has Zachary May MD Sep 03, 2016 13:34
--- NOTE | 2016-09-03 15:52 | MB ---
cc: OFELIA OLIVA M.D. DATE OF CONSULTATION 09/03/2016 REASON FOR CONSULTATION He is a 65-year-old seen in neurological consultation in regards to tremors and confusion. HISTORY OF THE PRESENT ILLNESS The patient has been in the hospital since 08/31. He has been treated for respiratory insufficiency and he has a history of multiple medical problems including peripheral neuropathy, end-stage renal disease on dialysis, cardiomyopathy, atrial fibrillation on Coumadin and COPD. Neurologic werner he also had an apparent subarachnoid hemorrhage in December 2015. Today, especially he was noted to be more confused. He called the earlier in the and he was obviously confused. He has been having more trembling and feels weak in a generalized manner. MEDICATIONS Current medications include: 1. Solu-Cortef. 2. Coumadin. 3. Albuterol. 4. Cefepime. 5. Azithromycin. 6. Renvela. 7. Calcitriol. 8. Vitamin D3. 9. Nephrocaps. 10. Midodrine. 11. Zofran. 12. [place]. 13. Flecainide 14. Gabapentin which is 100 milligrams twice a day. NEUROLOGICAL EXAMINATION The neurologic exam shows the patient be awake, alert, pleasant, oriented. He has droopy eyes, left more than right but this is chronic. He has right rotator cuff impairment. He has absent muscle stretch reflex and there is loss of intrinsic hand muscles, bilateral foot drop. ASSESSMENT 1. Metabolic encephalopathy. 2. Total neuropathy. 3. Apparent Dloikmw-Hnfyr-Itzmb disorder. 4. History of subarachnoid hemorrhage in December 2015. 5. Congestive heart failure. 6. Atrial fibrillation. 7. Renal failure. The trembling and confusion is probably related to multiple medications. It is difficult to say but he has multiple medications that can aggravate his tremor. In the same manner, these medications are likely causing or aggravating an encephalopathy along with an ICU psychosis, etc. He is to have a CT brain and EEG studies. Continue the medical care and evidently as his medical condition improves, we shall be able to reduce medications. The anti medications, COPD medications, Solu-Medrol are all aggravating factors for the encephalopathy along with the renal failure. Thank you for asking us to assist in his care. MD CONG Simpson/KK /1:43 PM /3:41 PM
[2016-09-03] MEDS: WARFARIN SOD 2.5 MG TAB PO SCH (16:00)
[2016-09-03] MEDS: PANTOPRAZOLE SOD 20 MG DELAYED RELEASE TAB PO SCH (21:53)
[2016-09-03] MEDS: AZITHROMYCIN INJ 500 MG in SODIUM CHLOR 0.9% 250 ML INJ 250 ML IV SCH (21:55)
[2016-09-04] VITALS (26 sets, daily range): BP systolic 82–97; BP diastolic 50–65; PULSE 72–101; RESP 18–20; TEMP 97–98.5; O2SAT 95–99
[2016-09-04] MEDS: CARBAMIDE PEROXIDE 6.5% OTIC SOLN 15 ML BTL RIGHT EAR SCH ×3 (00:43→21:22)
[2016-09-04] MEDS: RESP: ALBUTEROL 2.5 MG/IPRATROPIUM 0.5 MG NEB (SCH) NEB ×7 (04:00→23:06)
[2016-09-04] MEDS: CHLORHEXIDINE GLUCONATE 2 % 1 PACK (2 CLOTHS) TOP SCH (04:00)
[2016-09-04] MEDS: HYDROCORTISONE SOD SUCCINATE 100 MG VIAL IV PUSH SCH ×3 (06:00→21:22)
[2016-09-04] MEDS: INSULIN ASPART SUPPLEMENTAL SCALE SQ SCH ×4 (06:04→23:35)
[2016-09-04 06:43] LABS: HEMATOCRIT 28.7 % (39.0-51.0); MEAN CELL VOLUME 91.4 FL (80.0-100.0); MEAN CORPUSCULAR HGB CONC 32.8 % (32.0-36.0); PLATELET COUNT 225 TH/MM3 (150-450); RED BLOOD COUNT 3.14 MIL/MM3 (4.50-5.90); RED CELL DISTRIBUTION WIDTH 15.1 % (11.6-17.2); REVIEW FLAG FINAL
[2016-09-04 07:15] LABS: BICARBONATE 22.5 MEQ/L (21.0-32.0); POTASSIUM 3.2 MEQ/L (3.5-5.1)
[2016-09-04] MEDS: DOCUSATE SODIUM 50 MG/SENNA 8.6 MG TAB PO SCH ×2 (09:00→21:00)
--- NOTE | 2016-09-04 10:11 | PD.CARD.PN ---
Subjective Subjective Remarks Patient improving. Denies CP. SOB improved. Cough resolved Objective Medications Current Medications Medications (Trade) Dose Ordered Sig/Katina Route Start Time Stop Time Status Last Admin (Rocaltrol) 0.25 mcg DAILY PO 09/01/16 09:00 09/03/16 09:44 (Vitamin D3) 2,000 units DAILY PO 09/01/16 09:00 09/03/16 09:44 (Tambocor) 75 mg BID PO 09/01/16 00:30 09/03/16 21:53 (Neurontin) 100 mg BID PO 09/01/16 00:30 09/03/16 21:54 (Coumadin) 2.5 mg SuTuThSa@16 PO 09/01/16 16:00 09/03/16 16:00 (Coumadin) 5 mg MoWeFr@16 PO 09/02/16 16:00 09/02/16 16:00 (Nephrocaps) 1 cap DAILY PO 09/01/16 09:00 09/03/16 09:44 (Protonix) 20 mg HS PO 09/01/16 00:45 09/03/16 21:53 (Proamatine) 10 mg TID PO 09/01/16 09:00 09/03/16 17:23 (Pill Splitter) 1 ea UNSCH PRN OTHER 09/01/16 01:00 09/01/16 11:12 (NS Flush) 2 ml UNSCH PRN IV FLUSH 09/01/16 01:00 (NS Flush) 2 ml BID IV FLUSH 09/01/16 09:00 09/03/16 21:54 (Tylenol) 650 mg Q6H PRN PO 09/01/16 01:00 09/01/16 21:43 ([place] 5-325 Mg) 1 tab Q4H PRN PO 09/01/16 01:00 09/02/16 06:46 (Zofran Inj) 4 mg Q6H PRN IV 09/01/16 01:00 Miscellaneous Information 1 Q361D XX 09/01/16 01:00 09/01/16 01:00 (Chlorhexidine 2% Cloth) 3 pack Taper DAILY@04 TOP 09/01/16 04:00 08/28/17 03:59 09/01/16 02:25 (Chlorhexidine 2% Cloth) 3 pack UNSCH PRN TOP 09/01/16 01:00 (Leah-Colace) 1 tab BID PO 09/01/16 09:00 09/02/16 08:42 (Milk Of Magnesia Liq) 30 ml Q12H PRN PO 09/01/16 01:00 (Senokot) 17.2 mg Q12H PRN PO 09/01/16 01:00 (Dulcolax Supp) 10 mg DAILY PRN RECTAL 09/01/16 01:00 (Lactulose Liq) 30 ml DAILY PRN PO 09/01/16 01:00 (D50w (Vial) Inj) 50 ml UNSCH PRN IV 09/01/16 02:00 (Glucagon Inj) 1 mg UNSCH PRN OTHER 09/01/16 02:00 Sevelamer Carbonate 2400 mg 2,400 mg TIDAC PO 09/01/16 17:00 09/03/16 17:23 (Zithromax Inj/ NS 250 ml Inj) 250 ml @ 250 mls/hr Q24H IV 09/01/16 20:00 09/03/16 21:55 (Cepacol Extra Katty (Sugar Free)) 1 lozenge Q4H PRN BUCCAL 09/02/16 00:45 (Debrox 6.5% Otic) 5 drop Q12HR RIGHT EAR 09/02/16 21:30 09/07/16 21:29 09/04/16 00:43 (SoluCORTEF INJ) 50 mg Q8HR IV PUSH 09/03/16 14:00 09/04/16 06:00 Vital Signs / I&O Vital Signs Date Time Temp Pulse Resp B/P Pulse Ox O2 Delivery O2 Flow Rate FiO2 09/04/16 08:55 95 Nasal Cannula 2.00 09/04/16 08:23 86 09/04/16 06:00 86 09/04/16 05:00 86 09/04/16 04:00 90 09/04/16 03:00 72 09/04/16 03:00 97.9 91 20 87/60 98 09/04/16 02:00 78 09/04/16 01:00 84 09/04/16 00:00 84 09/03/16 23:00 95 09/03/16 23:00 98.1 92 20 95/63 97 09/03/16 22:00 98 09/03/16 21:00 88 09/03/16 20:00 110 09/03/16 19:00 107 09/03/16 19:00 98.5 119 20 98/70 99 09/03/16 18:54 94 Nasal Cannula 2.00 09/03/16 18:01 90 09/03/16 17:08 96 09/03/16 16:19 98.0 104 20 90/60 97 09/03/16 16:19 94 09/03/16 14:00 105 09/03/16 12:00 98.2 107 22 106/49 92 09/03/16 12:00 107 I/O 09/03/16 09/03/16 09/03/16 09/04/16 09/04/16 09/04/16 07:00 15:00 23:00 07:00 15:00 23:00 Intake Total 250 ml 120 ml 490 ml Output Total 611 ml 0 ml Balance 250 ml -611 ml 120 ml 490 ml Intake Oral 0 ml 120 ml 240 ml IV Total 250 ml 250 ml Output Urine Total 0 ml Stool Total 0 ml Peritoneal Fluid 611 ml # Voids 0 # Bowel Movements 0 0 Physical Exam GENERAL: middle aged male in CVSDU laying flat SKIN: Warm and dry. HEAD: Normocephalic. EYES: No scleral icterus. No injection or drainage. NECK: Supple, trachea midline.no JVD CARDIOVASCULAR: Irregularly irreg, mumur, trace lower extremity edema RESPIRATORY: Right rales GASTROINTESTINAL: Abdomen soft, non-tender, nondistended. MUSCULOSKELETAL: No cyanosis, or edema. BACK: Nontender without obvious deformity. No CVA tenderness. Laboratory Laboratory Tests Test 09/04/16 06:25 White Blood Count 12.0 TH/MM3 Red Blood Count 3.14 MIL/MM3 Hemoglobin 9.4 GM/DL Hematocrit 28.7 % Mean Corpuscular Volume 91.4 FL Mean Corpuscular Hemoglobin 30.0 PG Mean Corpuscular Hemoglobin 32.8 % Concent Red Cell Distribution Width 15.1 % Platelet Count 225 TH/MM3 Mean Platelet Volume 7.5 FL Sodium Level 133 MEQ/L Potassium Level 3.2 MEQ/L Chloride Level 94 MEQ/L Carbon Dioxide Level 22.5 MEQ/L Anion Gap 17 MEQ/L Blood Urea Nitrogen 71 MG/DL Creatinine 7.16 MG/DL Estimat Glomerular Filtration 8 ML/MIN Rate Random Glucose 146 MG/DL Calcium Level 7.5 MG/DL Imaging Last 72 hours Impressions Lung Scan-VQ Nuclear Medicine 09/02/16 0000 Signed Impressions: Service Date/Time: Friday, September 02, 2016 11:20 - CONCLUSION: Single large V/Q match , low probability for pulmonary embolism. embolism. Myron Damian MD FACR Chest X-Ray 09/02/16 0000 Signed Impressions: Service Date/Time: Friday, September 02, 2016 04:55 - CONCLUSION: 1. Cardiomegaly and interstitial edema, slightly improved. 2. Heart valve replacement. Pedro Piña MD Assessment and Plan Assessment and Plan ASSESSMENT Chest pain with slightly elevated troponins. Chest pain and elevated troponin due to pulmonary edema and fluid overload. Atrial fibrillation on coumadin ASHD, heart cath 01/2014 TAVR 03/2014 Moderate- severe mitral stenosis echo 07/[address] Hart. Leukocytosis- on Solumedrol PLAN Pending cardiac echo Diuresis/dialysis per nephrology Continue coumadin Assessment and plan discussed with Dr Castro. The patient is stable from a cardiac standpoint for discharge once echo is completed. The patient will need to follow up in the in office in 1-2 weeks. Shaylee Daniels Sep 04, 2016 10:11
[2016-09-04] MEDS: MIDODRINE 5 MG TAB PO SCH ×3 (10:20→18:04)
[2016-09-04] MEDS: VITAMIN B CMPLX/VITC/FOLIC AC CAP PO SCH (10:20)
[2016-09-04] MEDS: CHOLECALCIFEROL (VIT D3) 1000 UNIT TAB PO SCH (10:25)
[2016-09-04] MEDS: SEVELAMER CARBONATE 800 MG TAB PO SCH ×3 (10:25→18:03)
[2016-09-04] MEDS: GABAPENTIN 100 MG CAP PO SCH ×2 (10:26→21:04)
[2016-09-04] MEDS: FLECAINIDE ACETATE 100 MG TAB PO SCH ×2 (10:26→21:04)
[2016-09-04] MEDS: CALCITRIOL 0.25 MCG CAP PO SCH (10:32)
[2016-09-04] MEDS ORDERED: POTASSIUM CHLORIDE 25 MEQ EFFERVESCENT TAB PO SCH (11:00)
--- NOTE | 2016-09-04 11:34 | ECHRPT ---
Indication: Shortness of breath CONCLUSIONS Normal left ventricular size. Mild concentric left ventricular hypertrophy. The left ventricular systolic function is low normal with an estimated ejection fraction in the rang e of 50- 55%. The left atrial size is severely dilated. The right atrial size is moderately dilated. Moderate mitral valve regurgitation. Mitral annular calcification is present. Severe mitral valve stenosis. Mitral valve mean gradient is 11 mmHg. The mitral valve area by Pressure Halftime Method is 1.43cm. The aortic valve prosthesis is normal to two-dimensional, color flow and Doppler interrogation. There is moderate tricuspid regurgitation. There is estimated moderate pulmonary hypertension present (54 mmHg). BP: 110 / 72 HR: 100 Rhythm: MEASUREMENTS (Male / Female) Normal Values Technical Quality: 2D ECHO LV Diastolic Diameter PLAX 4.6 cm 4.2 - 5.9 / 3.9 - 5.3 cm LV Systolic Diameter PLAX 3.2 cm IVS Diastolic Thickness 1.1 cm 0.6 - 1.0 / 0.6 - 0.9 cm LVPW Diastolic Thickness 0.8 cm 0.6 - 1.0 / 0.6 - 0.9 cm LV Relative Wall Thickness 0.4 RV Internal Dim ED PLAX 3.1 cm LA Systolic Diameter LX 4.5 cm 3.0 - 4.0 / 2.7 - 3.8 cm DOPPLER AV Peak Velocity 229.0 cm/s AV Peak Gradient 21.0 mmHg AV Mean Gradient 10.0 mmHg AV Velocity Time Integral 49.4 cm LVOT Peak Velocity 158.0 cm/s LVOT Peak Gradient 10.0 mmHg MV Peak Velocity 277.0 cm/s MV Peak Gradient 30.7 mmHg MV Mean Velocity 144.0 cm/s MV Mean Gradient 11.0 mmHg MV Area PHT 1.6 cm MR Peak Velocity 488.5 cm/s MR Peak Gradient 95.5 mmHg Mitral E Point Velocity 172.0 cm/s Mitral A Point Velocity 148.0 cm/s Mitral E to A Ratio 1.2 TR Peak Velocity 330.0 cm/s TR Peak Gradient 43.6 mmHg FINDINGS LEFT VENTRICLE Normal left ventricular size. Mild concentric left ventricular hypertrophy. The left ventricular systolic function is low normal with an estimated ejection fraction in the rang e of 50- 55%. RIGHT VENTRICLE The right ventricle is mildly dilated. LEFT ATRIUM The left atrial size is severely dilated. RIGHT ATRIUM The right atrial size is moderately dilated. ATRIAL SEPTUM Normal atrial septal thickness without atrial level shunting by limited color doppler interrogation. AORTA The aortic root and proximal ascending aorta are normal in size on limited imaging. MITRAL VALVE Moderate mitral valve regurgitation. Mitral annular calcification is present. Severe mitral valve stenosis. Mitral valve mean gradient is 11 mmHg. The mitral valve area by Pressure Halftime Method is 1.43cm. AORTIC VALVE The aortic valve prosthesis is normal to two-dimensional, color flow and Doppler interrogation. TRICUSPID VALVE There is moderate tricuspid regurgitation. There is estimated moderate pulmonary hypertension present (54 mmHg). PULMONARY VALVE The pulmonary valve is not well visualized. VESSELS The inferior vena cava is normal in size. PERICARDIUM No pericardial effusion. Nick Bergman MD, FACC (Electronically Signed) Final Date:04 September 2016 11:33
--- NOTE | 2016-09-04 11:49 | HHI.PR ---
Review/Management Daily Summary 09/04 tremor same encephalopathy same vs better pending mri and eeg if unable to do mri, could judt obtain ct brain s i will be out of town if eeg or imaging studies shows any significant findings, please call as one of my partners will be covering Subjective Subjective Comments denies confusion, tremor same Active Medications Current Medications Medications (Trade) Dose Ordered Sig/Katina Route Start Time Stop Time Status Last Admin (Rocaltrol) 0.25 mcg DAILY PO 09/01/16 09:00 09/04/16 10:32 (Vitamin D3) 2,000 units DAILY PO 09/01/16 09:00 09/04/16 10:25 (Tambocor) 75 mg BID PO 09/01/16 00:30 09/04/16 10:26 (Neurontin) 100 mg BID PO 09/01/16 00:30 09/04/16 10:26 (Coumadin) 2.5 mg SuTuThSa@16 PO 09/01/16 16:00 09/03/16 16:00 (Coumadin) 5 mg MoWeFr@16 PO 09/02/16 16:00 09/02/16 16:00 (Nephrocaps) 1 cap DAILY PO 09/01/16 09:00 09/04/16 10:20 (Protonix) 20 mg HS PO 09/01/16 00:45 09/03/16 21:53 (Proamatine) 10 mg TID PO 09/01/16 09:00 09/04/16 10:20 (Pill Splitter) 1 ea UNSCH PRN OTHER 09/01/16 01:00 09/01/16 11:12 (NS Flush) 2 ml UNSCH PRN IV FLUSH 09/01/16 01:00 (NS Flush) 2 ml BID IV FLUSH 09/01/16 09:00 09/03/16 21:54 (Tylenol) 650 mg Q6H PRN PO 09/01/16 01:00 09/01/16 21:43 ([place] 5-325 Mg) 1 tab Q4H PRN PO 09/01/16 01:00 09/02/16 06:46 (Zofran Inj) 4 mg Q6H PRN IV 09/01/16 01:00 Miscellaneous Information 1 Q361D XX 09/01/16 01:00 09/01/16 01:00 (Chlorhexidine 2% Cloth) 3 pack Taper DAILY@04 TOP 09/01/16 04:00 08/28/17 03:59 09/01/16 02:25 (Chlorhexidine 2% Cloth) 3 pack UNSCH PRN TOP 09/01/16 01:00 (Leah-Colace) 1 tab BID PO 09/01/16 09:00 09/02/16 08:42 (Milk Of Magnesia Liq) 30 ml Q12H PRN PO 09/01/16 01:00 (Senokot) 17.2 mg Q12H PRN PO 09/01/16 01:00 (Dulcolax Supp) 10 mg DAILY PRN RECTAL 09/01/16 01:00 (Lactulose Liq) 30 ml DAILY PRN PO 09/01/16 01:00 (D50w (Vial) Inj) 50 ml UNSCH PRN IV 09/01/16 02:00 (Glucagon Inj) 1 mg UNSCH PRN OTHER 09/01/16 02:00 Sevelamer Carbonate 2400 mg 2,400 mg TIDAC PO 09/01/16 17:00 09/04/16 10:25 (Zithromax Inj/ NS 250 ml Inj) 250 ml @ 250 mls/hr Q24H IV 09/01/16 20:00 09/03/16 21:55 (Cepacol Extra Katty (Sugar Free)) 1 lozenge Q4H PRN BUCCAL 09/02/16 00:45 (Debrox 6.5% Otic) 5 drop Q12HR RIGHT EAR 09/02/16 21:30 09/07/16 21:29 09/04/16 09:00 Hydrocortisone Sodium Succinate 50 mg 50 mg Q8HR IV PUSH 09/03/16 14:00 09/04/16 06:00 (Coumadin Consult Pharmacy) 0 ml @ 0 mls/hr UNSCH OTHER 09/04/16 10:30 (K-Lyte Cl Eff) 25 meq Q12HR PO 09/04/16 11:00 09/04/16 10:35 Allergies Allergies Coded Allergies No Known Allergies (Unverified08/31/16) Exam I&O / VS 09/03/16 09/03/16 09/04/16 15:00 23:00 07:00 Intake Total 120 ml 490 ml Output Total 611 ml 0 ml Balance -611 ml 120 ml 490 ml Intake Oral 120 ml 240 ml IV Total 250 ml Output Urine Total 0 ml Stool Total 0 ml Peritoneal Fluid 611 ml # Bowel Movements 0 Vital Signs Date Time Temp Pulse Resp B/P Pulse Ox O2 Delivery O2 Flow Rate FiO2 09/04/16 08:55 95 Nasal Cannula 2.00 09/04/16 08:23 86 09/04/16 06:00 86 09/04/16 05:00 86 09/04/16 04:00 90 09/04/16 03:00 72 09/04/16 03:00 97.9 91 20 87/60 98 09/04/16 02:00 78 09/04/16 01:00 84 09/04/16 00:00 84 09/03/16 23:00 95 09/03/16 23:00 98.1 92 20 95/63 97 09/03/16 22:00 98 09/03/16 21:00 88 09/03/16 20:00 110 09/03/16 19:00 107 09/03/16 19:00 98.5 119 20 98/70 99 09/03/16 18:54 94 Nasal Cannula 2.00 09/03/16 18:01 90 09/03/16 17:08 96 09/03/16 16:19 98.0 104 20 90/60 97 09/03/16 16:19 94 09/03/16 14:00 105 09/03/16 12:00 98.2 107 22 106/49 92 09/03/16 12:00 107 Objective Micro and Labs Laboratory Tests Test 09/04/16 06:25 White Blood Count 12.0 Red Blood Count 3.14 Hemoglobin 9.4 Hematocrit 28.7 Mean Corpuscular Volume 91.4 Mean Corpuscular Hemoglobin 30.0 Mean Corpuscular Hemoglobin 32.8 Concent Red Cell Distribution Width 15.1 Platelet Count 225 Mean Platelet Volume 7.5 Sodium Level 133 Potassium Level 3.2 Chloride Level 94 Carbon Dioxide Level 22.5 Anion Gap 17 Blood Urea Nitrogen 71 Creatinine 7.16 Estimat Glomerular Filtration 8 Rate Random Glucose 146 Calcium Level 7.5 Date/Time Procedure Status Source Growth 09/01/16 19:20 Aerobic Blood Culture - Preliminary Resulted Blood Peripheral NO GROWTH IN 3 DAYS 09/01/16 19:20 Anaerobic Blood Culture - Preliminary Resulted Blood Peripheral NO GROWTH IN 3 DAYS Nova Almonte MD Sep 04, 2016 11:49
[2016-09-04] MEDS ORDERED: LORazepam 2 MG/ML VIAL IV PUSH SCH (13:45)
--- NOTE | 2016-09-04 14:50 | HHI.NPPN ---
Subjective History of Present Illness 65-year-old on PD with congestive heart failure Review of Systems General Constitutional: Fatigue Objective Data Data 09/03/16 09/04/16 19:00 07:00 Intake Total 120 ml 490 ml Output Total 611 ml 0 ml Balance -491 ml 490 ml Intake Oral 120 ml 240 ml IV Total 250 ml Output Urine Total 0 ml Stool Total 0 ml Peritoneal Fluid 611 ml # Bowel Movements 0 Vital Signs Date Time Temp Pulse Resp B/P Pulse Ox O2 Delivery O2 Flow Rate FiO2 09/04/16 08:55 95 Nasal Cannula 2.00 09/04/16 08:23 86 09/04/16 06:00 86 09/04/16 05:00 86 09/04/16 04:00 90 09/04/16 03:00 72 09/04/16 03:00 97.9 91 20 87/60 98 09/04/16 02:00 78 09/04/16 01:00 84 09/04/16 00:00 84 09/03/16 23:00 95 09/03/16 23:00 98.1 92 20 95/63 97 09/03/16 22:00 98 09/03/16 21:00 88 09/03/16 20:00 110 09/03/16 19:00 107 09/03/16 19:00 98.5 119 20 98/70 99 09/03/16 18:54 94 Nasal Cannula 2.00 09/03/16 18:01 90 09/03/16 17:08 96 09/03/16 16:19 98.0 104 20 90/60 97 09/03/16 16:19 94 -: 09/04/16 0625 09/04/16 0625 Physical Exam General Appearance: Well Developed, Comfortable, Pale Eyes Eye Exam: Pupils Reactive Ears & Nose Ears & Nose Exam: Nasal Mucosa [place] Throat Throat Exam: Oral Mucosa [place] & Moist Neck Neck Exam: Trachea Midline Pulmonary Resp Exam: Crackles Cardiology CV Exam: Regular, Murmur Gastrointestinal/Abdomen GI Exam: Non-Tender, Bowel Sounds Present, Non-Distended Musculoskeletal MS Exam: Normal Tone Integumentary Skin Exam: Warm, Dry Extremeties Extremities Exam: No Edema, Pedal Pulses Palpable Neurologic Neuro Exam: Alert, Awake, Oriented, Speech Clear, Moving All Extremities Neuro Remarks tremors Psychiatric Psych Exam: Appropriate Responses Assessment/Plan Problem List: (1) ESRD (end stage renal disease) on dialysis Plan: Patient received dialysis the UF is 748cc Continue to dialyze him follow clinically replace K Tremors delgado including EEG, MRI Follow results (2) Congestive heart failure Plan: Patient has Zachary May MD Sep 04, 2016 14:50
--- NOTE | 2016-09-04 15:55 | MG ---
cc: TARAS STARR M.D. Lab No: Date: 09/04/2016 Age: Sex: M Race: DATE OF 1950, 65 years old EEG NUMBER [id number] REFERRING PHYSICIAN Tierra Meyer NP ROOM 243 With photic stimulation. Awake, drowsy, asleep study. INDICATION A 65-year-old male with onset of chest pain, discomfort, confusion, peripheral neuropathy, end-stage renal disease, atrial fibrillation, stroke, kidney transplant. MEDICATIONS Current medicines: 1. Solu-Cortef. 2. Coumadin. 3. Cefepime. 4. Azithromycin. 5. Renvela. 6. Vitamin D. 7. Neurontin. 8. Tambiocor. 9. Protonix. DESCRIPTION OF RECORD There is overall background slowing predominately of 4-5 Hz theta slowing. Some sharp waves were seen from epoch 5 with some phase reversals. This is seen centrally as well as more over the left hemisphere initially. There is some left arm jerking and some upper body movement more artifactual. Then again at epoch 34 sharp waves are seen, again it is bilateral. He developed sharps again at epoch 81. Photic stimulation with a posterior driving response, mild. IMPRESSION Abnormal EEG due to phase reversals and sharp waves seen consistent with probable epileptic focus in this patient. Clinical correlation. MD ADAM Bowen/DRE /3:32 PM /3:43 PM
[2016-09-04] MEDS: SODIUM CHLORIDE 0.9% FLUSH 10 ML FLUSH IV FLUSH SCH ×2 (16:27→21:21)
[2016-09-04] MEDS: WARFARIN SOD 5 MG TAB PO SCH (18:03)
[2016-09-04] MEDS: POTASSIUM CHLORIDE 20 MEQ CONTROLLED RELEASE TAB PO SCH ×2 (18:03→21:00)
--- NOTE | 2016-09-04 18:06 | RADRPT ---
EXAM DATE/TIME: 09/04/2016 16:55 [place] COMPARISON: MRI BRAIN W/O CONTRAST, December 22, 2015, 9:40. INDICATIONS : CVA. Tremors. MEDICAL HISTORY : Diabetes mellitus type 2. Renal disease, end stage. SURGICAL HISTORY : Aortic valve replacement, kidney transplant and titanium spine. ENCOUNTER: Initial ACUITY: 1 day PAIN SCORE: 0/10 LOCATION: Head. TECHNIQUE: Multiplanar, multisequence MRI of the brain was performed without contrast. FINDINGS: Compare December 2015. There is a tiny focus of increased signal on the diffusion weighted images in t he posterior right frontal lobe most likely a tiny lacunar infarct. No other areas of infarction iden tified in the brain. Again seen is an area of hemosiderin deposition in the left parietal cortex similar to prior study fr 2015. No mass effect or midline shift. No hydrocephalus. Minimal white matter ischemic changes. CONCLUSION: 1. Tiny acute subcentimeter lacunar infarct posterior right frontal lobe. 2. 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 No mass effect or shift. Anthony Astorga MD on September 04, 2016 at 17:59 Board Certified Radiologist. This report was verified electronically.
--- NOTE | 2016-09-04 18:47 | HHI.PR ---
Subjective History of Present Illness Alert, oriented 2, reported confusion, complaining of cough , no resting dyspnea , no chest pain , complaining of constipation, symptoms of his , eating better Review of Systems Constitutional Constitutional Remarks General weakness, constipation, dyspnea on minimal activity, baseline ambulation on wheelchair only, 10 systems reviewed otherwise negative Vitals/Results Intake & Output 09/03/16 09/03/16 09/04/16 15:00 23:00 07:00 Intake Total 120 ml 490 ml Output Total 611 ml 0 ml Balance -611 ml 120 ml 490 ml Intake Oral 120 ml 240 ml IV Total 250 ml Output Urine Total 0 ml Stool Total 0 ml Peritoneal Fluid 611 ml # Bowel Movements 0 Vital Signs Vital Signs Date Time Temp Pulse Resp B/P Pulse Ox O2 Delivery O2 Flow Rate FiO2 09/04/16 18:00 94 09/04/16 16:00 84 09/04/16 15:10 96 09/04/16 15:10 98.5 96 18 92/50 96 09/04/16 15:00 84 09/04/16 14:00 82 09/04/16 13:00 88 09/04/16 11:45 96 09/04/16 11:45 97.9 98 20 91/60 95 09/04/16 11:00 97 09/04/16 10:00 92 09/04/16 09:00 86 09/04/16 08:55 95 Nasal Cannula 2.00 09/04/16 08:23 86 09/04/16 07:30 98 09/04/16 07:30 97.9 98 20 82/52 95 09/04/16 06:00 86 09/04/16 05:00 86 09/04/16 04:00 90 09/04/16 03:00 72 09/04/16 03:00 97.9 91 20 87/60 98 09/04/16 02:00 78 09/04/16 01:00 84 09/04/16 00:00 84 09/03/16 23:00 95 09/03/16 23:00 98.1 92 20 95/63 97 09/03/16 22:00 98 09/03/16 21:00 88 09/03/16 20:00 110 09/03/16 19:00 107 09/03/16 19:00 98.5 119 20 98/70 99 09/03/16 18:54 94 Nasal Cannula 2.00 CBC/BMP: 09/04/16 0625 09/04/16 0625 Lab Results Laboratory Tests Test 09/04/16 06:25 White Blood Count 12.0 TH/MM3 Red Blood Count 3.14 MIL/MM3 Hemoglobin 9.4 GM/DL Hematocrit 28.7 % Mean Corpuscular Volume 91.4 FL Mean Corpuscular Hemoglobin 30.0 PG Mean Corpuscular Hemoglobin 32.8 % Concent Red Cell Distribution Width 15.1 % Platelet Count 225 TH/MM3 Mean Platelet Volume 7.5 FL Sodium Level 133 MEQ/L Potassium Level 3.2 MEQ/L Chloride Level 94 MEQ/L Carbon Dioxide Level 22.5 MEQ/L Anion Gap 17 MEQ/L Blood Urea Nitrogen 71 MG/DL Creatinine 7.16 MG/DL Estimat Glomerular Filtration 8 ML/MIN Rate Random Glucose 146 MG/DL Calcium Level 7.5 MG/DL Physical Exam General General Appearance: Well Developed, Comfortable, Pale Eyes Eye Exam: Pupils Reactive Ears & Nose Ears & Nose Exam: Nasal Mucosa [place] Throat Throat Exam: Oral Mucosa [place] & Moist Neck Neck Exam: Trachea Midline Pulmonary Resp Exam: Crackles Cardiology CV Exam: Regular, Murmur Gastrointestinal/Abdomen GI Exam: Non-Tender, Bowel Sounds Present, Non-Distended Musculoskeletal MS Exam: Normal Tone Integumentary Skin Exam: Warm, Dry Extremeties Extremities Exam: No Edema, Pedal Pulses Palpable Neurologic Neuro Exam: Alert, Awake, Oriented, Speech Clear, Moving All Extremities, Vessel Welder Equal Psychiatric Psych Exam: Appropriate Responses VTE Prophylaxis VTE Prophylaxis Meds: Coumadin Assessment/Plan Assessment/Plan Assessment Tremor Confusion Acute small right frontal lacunar infarct posteriorly , according to MRI report EEG reported with a probable epileptic activity Severe mitral stenosis with moderate regurgitation according to echo report Admitted with respiratory insufficiency, improved Pulmonary edema, improved Hypokalemia Hypoxemia, improved No evidence of PE End-stage renal disease on dialysis Pulmonary hypertension Aortic stenosis status post TAVR Nonischemic cardiomyopathy Paroxysmal atrial fibrillation Anemia of chronic disease Deconditioning Chronic debility on a wheelchair hx COPD, subarachnoid hemorrhage, peripheral neuropathy, cervical and lumbar fusion, Hearing loss, bilateral cataracts, chronic narcotic use, renal transplantation twice, Nonischemic cardiomyopathy,Paroxysmal atrial fibrillation on flecainide, mitral stenosis, RBBB, Orthostatic hypotension on long-term midodrine Management Neurology following Aspirin Possible need for antiepileptic medications Continue supplemental oxygen Continue dialysis telemetry Keep in negative fluid balance if possible Cardiology and nephrology following Potassium replacement per nephrology Laxatives ordered Continue Coumadin, keep INR between 2 and 3 Discussed with patient and his Discussed with nurse 35 minutes Vlad Baltazar MD Sep 04, 2016 18:47
[2016-09-04] MEDS: PSYLLIUM FIBER SF/GF 6 GM POWD PKT PO SCH (20:00)
[2016-09-04] MEDS: PANTOPRAZOLE SOD 20 MG DELAYED RELEASE TAB PO SCH (21:04)
[2016-09-04] MEDS: BENZONATATE 100 MG CAP PO PRN (21:04)
[2016-09-04] MEDS: AZITHROMYCIN INJ 500 MG in SODIUM CHLOR 0.9% 250 ML INJ 250 ML IV SCH (21:20)
[2016-09-04] MEDS: ASPIRIN 81 MG CHEW TAB CHEW SCH (21:27)
[2016-09-05] VITALS (26 sets, daily range): BP systolic 91–103; BP diastolic 54–73; PULSE 72–104; RESP 14–18; TEMP 97.7–98.6; O2SAT 92–99
[2016-09-05] MEDS: BENZONATATE 100 MG CAP PO PRN (01:05)
[2016-09-05] MEDS: RESP: ALBUTEROL 2.5 MG/IPRATROPIUM 0.5 MG NEB (SCH) NEB ×7 (03:25→23:51)
[2016-09-05] MEDS: CHLORHEXIDINE GLUCONATE 2 % 1 PACK (2 CLOTHS) TOP SCH (04:00)
[2016-09-05] MEDS: HYDROCORTISONE SOD SUCCINATE 100 MG VIAL IV PUSH SCH ×3 (06:00→20:36)
[2016-09-05 06:13] LABS: AUTOMATED NEUTROPHIL # 9.2 TH/MM3 (1.8-7.7); BASOPHIL % 0.3 % (0.0-2.0); EOSINOPHIL % 0.2 % (0.0-4.0); HEMATOCRIT 28.8 % (39.0-51.0); HEMO FLAGS DIFF FINAL; LYMPH % 4.2 % (9.0-44.0); LYMPHOCYTE # 0.4 TH/MM3 (1.0-4.8); MEAN CELL VOLUME 91.8 FL (80.0-100.0); MEAN CORPUSCULAR HEMOGLOBIN 30.6 PG (27.0-34.0); MEAN CORPUSCULAR HGB CONC 33.4 % (32.0-36.0); MONO % 7.5 % (0.0-8.0); NEUT % 87.8 % (16.0-70.0); PLATELET COUNT 223 TH/MM3 (150-450); RED BLOOD COUNT 3.13 MIL/MM3 (4.50-5.90); RED CELL DISTRIBUTION WIDTH 14.8 % (11.6-17.2); WHITE BLOOD COUNT 10.5 TH/MM3 (4.0-11.0)
[2016-09-05] MEDS: INSULIN ASPART SUPPLEMENTAL SCALE SQ SCH ×4 (06:47→20:46)
[2016-09-05 06:54] LABS: BICARBONATE 27.1 MEQ/L (21.0-32.0); POTASSIUM 3.4 MEQ/L (3.5-5.1)
[2016-09-05 07:15] LABS: CALCIUM-PROTEIN CORRECTED 7.7 MG/DL (8.5-10.1)
[2016-09-05] MEDS: DOCUSATE SODIUM 50 MG/SENNA 8.6 MG TAB PO SCH ×2 (09:00→20:37)
[2016-09-05] MEDS: SEVELAMER CARBONATE 800 MG TAB PO SCH ×3 (09:25→19:12)
[2016-09-05] MEDS: VITAMIN B CMPLX/VITC/FOLIC AC CAP PO SCH (09:25)
[2016-09-05] MEDS: ASPIRIN 81 MG CHEW TAB CHEW SCH (09:25)
[2016-09-05] MEDS: CHOLECALCIFEROL (VIT D3) 1000 UNIT TAB PO SCH (09:26)
[2016-09-05] MEDS: CALCITRIOL 0.25 MCG CAP PO SCH (09:26)
[2016-09-05] MEDS: POTASSIUM CHLORIDE 20 MEQ CONTROLLED RELEASE TAB PO SCH ×2 (09:26→20:37)
[2016-09-05] MEDS: GABAPENTIN 100 MG CAP PO SCH ×2 (09:27→20:37)
[2016-09-05] MEDS: FLECAINIDE ACETATE 100 MG TAB PO SCH ×2 (09:52→20:37)
[2016-09-05] MEDS: CARBAMIDE PEROXIDE 6.5% OTIC SOLN 15 ML BTL RIGHT EAR SCH ×2 (09:53→20:36)
[2016-09-05] MEDS: MIDODRINE 5 MG TAB PO SCH ×3 (09:53→18:00)
[2016-09-05] MEDS: CEFEPIME INJ 2,000 MG in SODIUM CHLORIDE 0.9% INJ 100 ML IV SCH (09:54)
[2016-09-05] MEDS: SODIUM CHLORIDE 0.9% FLUSH 10 ML FLUSH IV FLUSH SCH ×2 (09:54→20:38)
--- NOTE | 2016-09-05 10:47 | PD.CARD.PN ---
Subjective Subjective Remarks No CP or increased SOB. Had recurrent episode of AMS. Objective Medications Current Medications Medications (Trade) Dose Ordered Sig/Katina Route Start Time Stop Time Status Last Admin (Rocaltrol) 0.25 mcg DAILY PO 09/01/16 09:00 09/05/16 09:26 (Vitamin D3) 2,000 units DAILY PO 09/01/16 09:00 09/05/16 09:26 (Tambocor) 75 mg BID PO 09/01/16 00:30 09/05/16 09:52 (Neurontin) 100 mg BID PO 09/01/16 00:30 09/05/16 09:27 (Coumadin) 2.5 mg SuTuThSa@16 PO 09/01/16 16:00 Hold 09/03/16 16:00 (Coumadin) 5 mg MoWeFr@16 PO 09/02/16 16:00 Hold 09/04/16 18:03 (Nephrocaps) 1 cap DAILY PO 09/01/16 09:00 09/05/16 09:25 (Protonix) 20 mg HS PO 09/01/16 00:45 09/04/16 21:04 (Proamatine) 10 mg TID PO 09/01/16 09:00 09/05/16 09:53 (Pill Splitter) 1 ea UNSCH PRN OTHER 09/01/16 01:00 09/01/16 11:12 (NS Flush) 2 ml UNSCH PRN IV FLUSH 09/01/16 01:00 (NS Flush) 2 ml BID IV FLUSH 09/01/16 09:00 09/05/16 09:54 (Tylenol) 650 mg Q6H PRN PO 09/01/16 01:00 09/01/16 21:43 ([place] 5-325 Mg) 1 tab Q4H PRN PO 09/01/16 01:00 09/02/16 06:46 (Zofran Inj) 4 mg Q6H PRN IV 09/01/16 01:00 Miscellaneous Information 1 Q361D XX 09/01/16 01:00 09/01/16 01:00 (Chlorhexidine 2% Cloth) 3 pack Taper DAILY@04 TOP 09/01/16 04:00 08/28/17 03:59 09/01/16 02:25 (Chlorhexidine 2% Cloth) 3 pack UNSCH PRN TOP 09/01/16 01:00 (Leah-Colace) 1 tab BID PO 09/01/16 09:00 09/02/16 08:42 (Milk Of Magnesia Liq) 30 ml Q12H PRN PO 09/01/16 01:00 (Senokot) 17.2 mg Q12H PRN PO 09/01/16 01:00 (Dulcolax Supp) 10 mg DAILY PRN RECTAL 09/01/16 01:00 (Lactulose Liq) 30 ml DAILY PRN PO 09/01/16 01:00 (D50w (Vial) Inj) 50 ml UNSCH PRN IV 09/01/16 02:00 (Glucagon Inj) 1 mg UNSCH PRN OTHER 09/01/16 02:00 Sevelamer Carbonate 2400 mg 2,400 mg TIDAC PO 09/01/16 17:00 09/05/16 09:25 (Zithromax Inj/ NS 250 ml Inj) 250 ml @ 250 mls/hr Q24H IV 09/01/16 20:00 09/04/16 21:20 (Cepacol Extra Katty (Sugar Free)) 1 lozenge Q4H PRN BUCCAL 09/02/16 00:45 (Debrox 6.5% Otic) 5 drop Q12HR RIGHT EAR 09/02/16 21:30 09/07/16 21:29 09/05/16 09:53 Hydrocortisone Sodium Succinate 50 mg 50 mg Q8HR IV PUSH 09/03/16 14:00 09/05/16 06:00 (Coumadin Consult Pharmacy) 0 ml @ 0 mls/hr UNSCH OTHER 09/04/16 10:30 (Tessalon) 200 mg TID PRN PO 09/04/16 14:00 09/05/16 01:05 (KCl) 20 meq Q12HR PO 09/04/16 15:45 09/05/16 09:26 (Metamucil Smooth Texture Sf/ Gf Pkt) 1 pkt DAILY PO 09/04/16 20:00 (Aspirin Chew) 162 mg DAILY CHEW 09/04/16 20:00 09/05/16 09:25 Vital Signs / I&O Vital Signs Date Time Temp Pulse Resp B/P Pulse Ox O2 Delivery O2 Flow Rate FiO2 09/05/16 09:11 92 Nasal Cannula 2.00 09/05/16 08:00 72 09/05/16 07:29 98.1 91 14 101/69 99 09/05/16 06:00 82 09/05/16 05:00 96 09/05/16 04:00 90 09/05/16 03:00 97.7 89 18 91/65 97 09/05/16 03:00 80 09/05/16 02:00 90 09/05/16 01:00 86 09/05/16 00:00 88 09/04/16 23:00 97.8 89 18 91/65 97 09/04/16 23:00 87 09/04/16 22:00 92 09/04/16 21:00 86 09/04/16 20:19 96 21 09/04/16 20:00 92 09/04/16 19:00 97.0 101 18 97/63 99 09/04/16 19:00 93 09/04/16 18:00 94 09/04/16 16:00 84 09/04/16 15:10 96 09/04/16 15:10 98.5 96 18 92/50 96 09/04/16 15:00 84 09/04/16 14:00 82 09/04/16 13:00 88 09/04/16 11:45 96 09/04/16 11:45 97.9 98 20 91/60 95 09/04/16 11:00 97 I/O 09/04/16 09/04/16 09/04/16 09/05/16 09/05/16 09/05/16 07:00 15:00 23:00 07:00 15:00 23:00 Intake Total 490 ml 704 ml 490 ml Output Total 0 ml 748 ml 0 ml Balance 490 ml -748 ml 704 ml 490 ml Intake Oral 240 ml 600 ml 240 ml IV Total 250 ml 104 ml 250 ml Output Urine Total 0 ml 0 ml Stool Total 0 ml Peritoneal Fluid 748 ml # Bowel Movements 1 1 Physical Exam GENERAL: middle aged male in CVSDU at bedside SKIN: Warm and dry. HEAD: Normocephalic. EYES: No scleral icterus. No injection or drainage. NECK: Supple, trachea midline.no JVD CARDIOVASCULAR: Irregularly irreg, mumur, trace lower extremity edema RESPIRATORY: Right rales GASTROINTESTINAL: Abdomen soft, non-tender, nondistended. MUSCULOSKELETAL: No cyanosis, BACK: Nontender without obvious deformity. No CVA tenderness. NEURO: episode of transient confusion while speaking with the patient Laboratory Laboratory Tests Test 09/05/16 06:00 White Blood Count 10.5 TH/MM3 Red Blood Count 3.13 MIL/MM3 Hemoglobin 9.6 GM/DL Hematocrit 28.8 % Mean Corpuscular Volume 91.8 FL Mean Corpuscular Hemoglobin 30.6 PG Mean Corpuscular Hemoglobin 33.4 % Concent Red Cell Distribution Width 14.8 % Platelet Count 223 TH/MM3 Mean Platelet Volume 7.3 FL Neutrophils (%) (Auto) 87.8 % Lymphocytes (%) (Auto) 4.2 % Monocytes (%) (Auto) 7.5 % Eosinophils (%) (Auto) 0.2 % Basophils (%) (Auto) 0.3 % Neutrophils # (Auto) 9.2 TH/MM3 Lymphocytes # (Auto) 0.4 TH/MM3 Monocytes # (Auto) 0.8 TH/MM3 Eosinophils # (Auto) 0.0 TH/MM3 Basophils # (Auto) 0.0 TH/MM3 CBC Comment DIFF FINAL Differential Comment Prothrombin Time 35.0 SEC Prothromb Time International 3.0 RATIO Ratio Sodium Level 133 MEQ/L Potassium Level 3.4 MEQ/L Chloride Level 96 MEQ/L Carbon Dioxide Level 27.1 MEQ/L Anion Gap 10 MEQ/L Blood Urea Nitrogen 70 MG/DL Creatinine 6.94 MG/DL Estimat Glomerular Filtration 8 ML/MIN Rate Random Glucose 165 MG/DL Calcium Level 7.3 MG/DL Protein Corrected Calcium 7.7 MG/DL Magnesium Level 2.0 MG/DL Total Protein 6.3 GM/DL Imaging Last 72 hours Impressions Brain MRI 09/04/16 0000 Signed Impressions: Service Date/Time: Sunday, September 04, 2016 16:55 - CONCLUSION: 1. Tiny acute subcentimeter lacunar infarct posterior right frontal lobe. 2. 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 No mass effect or shift. Anthony Astorga MD Assessment and Plan Assessment and Plan ASSESSMENT Chest pain with slightly elevated troponins. Chest pain and elevated troponin due to pulmonary edema and fluid overload. Atrial fibrillation on coumadin ASHD, heart cath 01/2014 TAVR 03/2014 Severe MS, Mod MR, RVSP 54, EF 50-55% Echo 09/04/2016 Hypotension- on midodrine. Recently Rx Northera by Experimental Worker ESRD followed by Dr. Hart. AMS- abnormal EEG and MRI shows new, small lacunar stroke. PLAN We will continue conservative management for severe mitral stenosis. Will consider evaluation for surgery once the patient is more stable. We will address this outpatient. Diuresis/dialysis per nephrology Coumadin on hold. INR 3 today Decrease ASA to 81 mg from 162 mg due to history of brain bleed Patient seen and evaluated by Dr Castro. Shaylee Daniels Sep 05, 2016 10:47
[2016-09-05] MEDS: PSYLLIUM FIBER SF/GF 6 GM POWD PKT PO SCH (13:07)
[2016-09-05] MEDS ORDERED: POTASSIUM CHLORIDE 20 MEQ CONTROLLED RELEASE TAB PO ONE (13:15)
--- NOTE | 2016-09-05 17:22 | HHI.PR ---
Subjective History of Present Illness Alert, oriented 3, reported confusion again this morning, less cough , no resting dyspnea , no chest pain , still has episodes of upper extremity tremors , these episodes occur while he still awake, seen in the presence of his , eating better , was taken out of bed to chair earlier today by physical therapy, Review of Systems Constitutional Constitutional Remarks General weakness, tremors, possible seizures according to EEG report, dyspnea on minimal activity, baseline ambulation on wheelchair only, 10 systems reviewed otherwise negative Vitals/Results Intake & Output 09/04/16 09/04/16 09/05/16 15:00 23:00 07:00 Intake Total 704 ml 490 ml Output Total 748 ml 0 ml Balance -748 ml 704 ml 490 ml Intake Oral 600 ml 240 ml IV Total 104 ml 250 ml Output Urine Total 0 ml Peritoneal Fluid 748 ml # Bowel Movements 1 1 Vital Signs Vital Signs Date Time Temp Pulse Resp B/P Pulse Ox O2 Delivery O2 Flow Rate FiO2 09/05/16 16:54 98.1 104 14 94/73 97 09/05/16 14:42 78 09/05/16 13:46 98 09/05/16 12:24 98.2 74 16 91/54 92 09/05/16 11:08 94 09/05/16 10:00 86 09/05/16 09:11 92 Nasal Cannula 2.00 09/05/16 09:00 82 09/05/16 08:00 72 09/05/16 07:29 98.1 91 14 101/69 99 09/05/16 07:00 86 09/05/16 06:00 82 09/05/16 05:00 96 09/05/16 04:00 90 09/05/16 03:00 97.7 89 18 91/65 97 09/05/16 03:00 80 09/05/16 02:00 90 09/05/16 01:00 86 09/05/16 00:00 88 09/04/16 23:00 97.8 89 18 91/65 97 09/04/16 23:00 87 09/04/16 22:00 92 09/04/16 21:00 86 09/04/16 20:19 96 21 09/04/16 20:00 92 09/04/16 19:00 97.0 101 18 97/63 99 09/04/16 19:00 93 09/04/16 18:00 94 CBC/BMP: 09/05/16 0600 09/05/16 0600 Lab Results Laboratory Tests Test 09/05/16 06:00 White Blood Count 10.5 TH/MM3 Red Blood Count 3.13 MIL/MM3 Hemoglobin 9.6 GM/DL Hematocrit 28.8 % Mean Corpuscular Volume 91.8 FL Mean Corpuscular Hemoglobin 30.6 PG Mean Corpuscular Hemoglobin 33.4 % Concent Red Cell Distribution Width 14.8 % Platelet Count 223 TH/MM3 Mean Platelet Volume 7.3 FL Neutrophils (%) (Auto) 87.8 % Lymphocytes (%) (Auto) 4.2 % Monocytes (%) (Auto) 7.5 % Eosinophils (%) (Auto) 0.2 % Basophils (%) (Auto) 0.3 % Neutrophils # (Auto) 9.2 TH/MM3 Lymphocytes # (Auto) 0.4 TH/MM3 Monocytes # (Auto) 0.8 TH/MM3 Eosinophils # (Auto) 0.0 TH/MM3 Basophils # (Auto) 0.0 TH/MM3 CBC Comment DIFF FINAL Differential Comment Prothrombin Time 35.0 SEC Prothromb Time International 3.0 RATIO Ratio Sodium Level 133 MEQ/L Potassium Level 3.4 MEQ/L Chloride Level 96 MEQ/L Carbon Dioxide Level 27.1 MEQ/L Anion Gap 10 MEQ/L Blood Urea Nitrogen 70 MG/DL Creatinine 6.94 MG/DL Estimat Glomerular Filtration 8 ML/MIN Rate Random Glucose 165 MG/DL Calcium Level 7.3 MG/DL Protein Corrected Calcium 7.7 MG/DL Magnesium Level 2.0 MG/DL Total Protein 6.3 GM/DL Physical Exam General General Appearance: Well Developed, Comfortable, Pale Eyes Eye Exam: Pupils Reactive Ears & Nose Ears & Nose Exam: Nasal Mucosa [place] Throat Throat Exam: Oral Mucosa [place] & Moist Neck Neck Exam: Trachea Midline Pulmonary Resp Exam: Crackles Cardiology CV Exam: Regular, Murmur Gastrointestinal/Abdomen GI Exam: Non-Tender, Bowel Sounds Present, Non-Distended Musculoskeletal MS Exam: Normal Tone Integumentary Skin Exam: Warm, Dry Extremeties Extremities Exam: No Edema, Pedal Pulses Palpable Neurologic Neuro Exam: Alert, Awake, Oriented, Speech Clear, Moving All Extremities Psychiatric Psych Exam: Appropriate Responses VTE Prophylaxis VTE Prophylaxis Meds: Coumadin Assessment/Plan Assessment/Plan Assessment Tremor , possible seizures Episodes of Confusion Acute small right frontal lacunar infarct posteriorly , according to MRI report EEG reported with a probable epileptic activity Severe mitral stenosis with moderate regurgitation according to echo report Admitted with respiratory insufficiency, improved Pulmonary edema, improved Hypokalemia Hypoxemia, improved No evidence of PE End-stage renal disease on dialysis Pulmonary hypertension Aortic stenosis status post TAVR Nonischemic cardiomyopathy Paroxysmal atrial fibrillation Anemia of chronic disease Deconditioning Chronic debility on a wheelchair hx COPD, subarachnoid hemorrhage, peripheral neuropathy, cervical and lumbar fusion, Hearing loss, bilateral cataracts, chronic narcotic use, renal transplantation twice, Nonischemic cardiomyopathy,Paroxysmal atrial fibrillation on flecainide, mitral stenosis, RBBB, Orthostatic hypotension on long-term midodrine Management Replace potassium tried to contact his neurologist I believe probably she will be seeing him later today Aspirin, 81 milligrams as he has a history of bleed Possible need for antiepileptic medications Continue supplemental oxygen Continue dialysis telemetry Keep in negative fluid balance if possible Cardiology and nephrology following Potassium replacement per nephrology 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
--- NOTE | 2016-09-05 18:49 | HHI.NPPN ---
Subjective History of Present Illness 65-year-old on PD with congestive heart failure Review of Systems General Constitutional: Fatigue Objective Data Data 09/04/16 09/05/16 19:00 07:00 Intake Total 704 ml 490 ml Output Total 748 ml Balance -44 ml 490 ml Intake Oral 600 ml 240 ml IV Total 104 ml 250 ml Output Urine Total 0 ml Peritoneal Fluid 748 ml # Bowel Movements 1 1 Vital Signs Date Time Temp Pulse Resp B/P Pulse Ox O2 Delivery O2 Flow Rate FiO2 09/05/16 18:00 88 09/05/16 16:54 98.1 104 14 94/73 97 09/05/16 16:30 91 09/05/16 14:42 78 09/05/16 13:46 98 09/05/16 12:24 98.2 74 16 91/54 92 09/05/16 11:08 94 09/05/16 10:00 86 09/05/16 09:11 92 Nasal Cannula 2.00 09/05/16 09:00 82 09/05/16 08:00 72 09/05/16 07:29 98.1 91 14 101/69 99 09/05/16 07:00 86 09/05/16 06:00 82 09/05/16 05:00 96 09/05/16 04:00 90 09/05/16 03:00 97.7 89 18 91/65 97 09/05/16 03:00 80 09/05/16 02:00 90 09/05/16 01:00 86 09/05/16 00:00 88 09/04/16 23:00 97.8 89 18 91/65 97 09/04/16 23:00 87 09/04/16 22:00 92 09/04/16 21:00 86 09/04/16 20:19 96 21 09/04/16 20:00 92 09/04/16 19:00 97.0 101 18 97/63 99 09/04/16 19:00 93 -: 09/05/16 0600 09/05/16 0600 Physical Exam General Appearance: Well Developed, Comfortable, Pale Eyes Eye Exam: Pupils Reactive Ears & Nose Ears & Nose Exam: Nasal Mucosa [place] Throat Throat Exam: Oral Mucosa [place] & Moist Neck Neck Exam: Trachea Midline Pulmonary Resp Exam: Crackles Cardiology CV Exam: Regular, Murmur Gastrointestinal/Abdomen GI Exam: Non-Tender, Bowel Sounds Present, Non-Distended Musculoskeletal MS Exam: Normal Tone Integumentary Skin Exam: Warm, Dry Extremeties Extremities Exam: No Edema, Pedal Pulses Palpable Neurologic Neuro Exam: Alert, Awake, Oriented, Speech Clear, Moving All Extremities Neuro Remarks tremors Psychiatric Psych Exam: Appropriate Responses Assessment/Plan Problem List: (1) ESRD (end stage renal disease) on dialysis Plan: Patient received dialysis the UF is 898 cc Continue to dialyze him follow clinically replace K Tremors EEG suggest epilepsy (2) Congestive heart failure Plan: Patient has Zachary May MD Sep 05, 2016 18:49
--- NOTE | 2016-09-05 19:05 | HHI.PR ---
Review/Management Diagnosis - Acute ischemic lacunar stroke on the right posterior frontal lobe - H/o left parietal non - traumatic ICH - Asterixis/ chronic , likely etiology is end organ failure - Abnormal EEG, that revealed evidence of epileptogenicity - Hereditary neuropathy - H/o of restless leg syndrome - H/o hypotension - CKD - H/o of left sided sciatica Plan - Neuro check Q4h - Continue home medications - Add Keppra 250mg bid - Continue home anticoagulant therapy - PT/OT, recommendations are appreciated - DVT prophylaxis, SCDs' - GI prophylaxis Diagnosis/Plan: Subjective Subjective Comments Patient is awake, alert, at bed side EEG with evidence of sharp waves and phase reversal that may indicate epileptogenicity MRI brain revealed an a tiny acute lacunar ischemic infarct at the posterior right frontal region Active Medications Current Medications Medications (Trade) Dose Ordered Sig/Katina Route Start Time Stop Time Status Last Admin (Rocaltrol) 0.25 mcg DAILY PO 09/01/16 09:00 09/05/16 09:26 (Vitamin D3) 2,000 units DAILY PO 09/01/16 09:00 09/05/16 09:26 (Tambocor) 75 mg BID PO 09/01/16 00:30 09/05/16 09:52 (Neurontin) 100 mg BID PO 09/01/16 00:30 09/05/16 09:27 (Coumadin) 2.5 mg SuTuThSa@16 PO 09/01/16 16:00 Hold 09/03/16 16:00 (Coumadin) 5 mg MoWeFr@16 PO 09/02/16 16:00 Hold 09/04/16 18:03 (Nephrocaps) 1 cap DAILY PO 09/01/16 09:00 09/05/16 09:25 (Protonix) 20 mg HS PO 09/01/16 00:45 09/04/16 21:04 (Proamatine) 10 mg TID PO 09/01/16 09:00 09/05/16 13:08 (Pill Splitter) 1 ea UNSCH PRN OTHER 09/01/16 01:00 09/01/16 11:12 (NS Flush) 2 ml UNSCH PRN IV FLUSH 09/01/16 01:00 (NS Flush) 2 ml BID IV FLUSH 09/01/16 09:00 09/05/16 09:54 (Tylenol) 650 mg Q6H PRN PO 09/01/16 01:00 09/01/16 21:43 ([place] 5-325 Mg) 1 tab Q4H PRN PO 09/01/16 01:00 09/02/16 06:46 (Zofran Inj) 4 mg Q6H PRN IV 09/01/16 01:00 Miscellaneous Information 1 Q361D XX 09/01/16 01:00 09/01/16 01:00 (Chlorhexidine 2% Cloth) 3 pack Taper DAILY@04 TOP 09/01/16 04:00 08/28/17 03:59 09/01/16 02:25 (Chlorhexidine 2% Cloth) 3 pack UNSCH PRN TOP 09/01/16 01:00 (Leah-Colace) 1 tab BID PO 09/01/16 09:00 09/02/16 08:42 (Milk Of Magnesia Liq) 30 ml Q12H PRN PO 09/01/16 01:00 (Senokot) 17.2 mg Q12H PRN PO 09/01/16 01:00 (Dulcolax Supp) 10 mg DAILY PRN RECTAL 09/01/16 01:00 (Lactulose Liq) 30 ml DAILY PRN PO 09/01/16 01:00 (D50w (Vial) Inj) 50 ml UNSCH PRN IV 09/01/16 02:00 (Glucagon Inj) 1 mg UNSCH PRN OTHER 09/01/16 02:00 Sevelamer Carbonate 2400 mg 2,400 mg TIDAC PO 09/01/16 17:00 09/05/16 13:08 (Zithromax Inj/ NS 250 ml Inj) 250 ml @ 250 mls/hr Q24H IV 09/01/16 20:00 09/04/16 21:20 (Cepacol Extra Katty (Sugar Free)) 1 lozenge Q4H PRN BUCCAL 09/02/16 00:45 09/05/16 17:04 (Debrox 6.5% Otic) 5 drop Q12HR RIGHT EAR 09/02/16 21:30 09/07/16 21:29 09/05/16 09:53 Hydrocortisone Sodium Succinate 50 mg 50 mg Q8HR IV PUSH 09/03/16 14:00 09/05/16 13:08 (Coumadin Consult Pharmacy) 0 ml @ 0 mls/hr UNSCH OTHER 09/04/16 10:30 (Tessalon) 200 mg TID PRN PO 09/04/16 14:00 09/05/16 01:05 (KCl) 20 meq Q12HR PO 09/04/16 15:45 09/05/16 09:26 (Metamucil Smooth Texture Sf/ Gf Pkt) 1 pkt DAILY PO 09/04/16 20:00 09/05/16 13:07 (Aspirin Chew) 81 mg DAILY CHEW 09/06/16 09:00 Allergies Allergies Coded Allergies No Known Allergies (Unverified08/31/16) Review of Systems All other ROS: ROS reviewed as documented in chart Exam I&O / VS 09/04/16 09/04/16 09/05/16 15:00 23:00 07:00 Intake Total 704 ml 490 ml Output Total 748 ml 0 ml Balance -748 ml 704 ml 490 ml Intake Oral 600 ml 240 ml IV Total 104 ml 250 ml Output Urine Total 0 ml Peritoneal Fluid 748 ml # Bowel Movements 1 1 Vital Signs Date Time Temp Pulse Resp B/P Pulse Ox O2 Delivery O2 Flow Rate FiO2 09/05/16 18:00 88 09/05/16 16:54 98.1 104 14 94/73 97 09/05/16 16:30 91 09/05/16 14:42 78 09/05/16 13:46 98 09/05/16 12:24 98.2 74 16 91/54 92 09/05/16 11:08 94 09/05/16 10:00 86 09/05/16 09:11 92 Nasal Cannula 2.00 09/05/16 09:00 82 09/05/16 08:00 72 09/05/16 07:29 98.1 91 14 101/69 99 09/05/16 07:00 86 09/05/16 06:00 82 09/05/16 05:00 96 09/05/16 04:00 90 09/05/16 03:00 97.7 89 18 91/65 97 09/05/16 03:00 80 09/05/16 02:00 90 09/05/16 01:00 86 09/05/16 00:00 88 09/04/16 23:00 97.8 89 18 91/65 97 09/04/16 23:00 87 09/04/16 22:00 92 09/04/16 21:00 86 09/04/16 20:19 96 21 09/04/16 20:00 92 General: Alert and Oriented, Mild distress Eye: PERRL, EOMI Respiratory: Coarse breath sounds, Other (laboured breathing) Cardiology: Normal rate, Normal peripheral perfusion Neurologic: Alert, Oriented, Other (oriented to person, time and place, no dysarhtria, no dysphasia, b/l limited movements of both shoulders / chronic, generalized muscle wasting, particulary in both hand muscles, b/l LE weakness/ chronic, no fasciculations, diminished senssation in a stockings fashion, sluggish b/l ankle reflexes , 2+ otherwise' prominent b/l hand asterexis/ flapping tremor.acute on chronic) Objective Radiology Results Last 72 hours Impressions Brain MRI 09/04/16 0000 Signed Impressions: Service Date/Time: Sunday, September 04, 2016 16:55 - CONCLUSION: 1. Tiny acute subcentimeter lacunar infarct posterior right frontal lobe. 2. 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 No mass effect or shift. Anthony Astorga MD Micro and Labs Laboratory Tests Test 09/05/16 06:00 White Blood Count 10.5 Red Blood Count 3.13 Hemoglobin 9.6 Hematocrit 28.8 Mean Corpuscular Volume 91.8 Mean Corpuscular Hemoglobin 30.6 Mean Corpuscular Hemoglobin 33.4 Concent Red Cell Distribution Width 14.8 Platelet Count 223 Mean Platelet Volume 7.3 Neutrophils (%) (Auto) 87.8 Lymphocytes (%) (Auto) 4.2 Monocytes (%) (Auto) 7.5 Eosinophils (%) (Auto) 0.2 Basophils (%) (Auto) 0.3 Neutrophils # (Auto) 9.2 Lymphocytes # (Auto) 0.4 Monocytes # (Auto) 0.8 Eosinophils # (Auto) 0.0 Basophils # (Auto) 0.0 CBC Comment DIFF FINAL Differential Comment Prothrombin Time 35.0 Prothromb Time International 3.0 Ratio Sodium Level 133 Potassium Level 3.4 Chloride Level 96 Carbon Dioxide Level 27.1 Anion Gap 10 Blood Urea Nitrogen 70 Creatinine 6.94 Estimat Glomerular Filtration 8 Rate Random Glucose 165 Calcium Level 7.3 Protein Corrected Calcium 7.7 Magnesium Level 2.0 Total Protein 6.3 Date/Time Procedure Status Source Growth 09/01/16 19:20 Aerobic Blood Culture - Preliminary Resulted Blood Peripheral NO GROWTH IN 4 DAYS 09/01/16 19:20 Anaerobic Blood Culture - Preliminary Resulted Blood Peripheral NO GROWTH IN 4 DAYS Kike Tracey MD Sep 05, 2016 19:05
[2016-09-05] MEDS: AZITHROMYCIN INJ 500 MG in SODIUM CHLOR 0.9% 250 ML INJ 250 ML IV SCH (20:35)
[2016-09-05] MEDS: PANTOPRAZOLE SOD 20 MG DELAYED RELEASE TAB PO SCH (20:37)
[2016-09-05] MEDS: levETIRAcetam 250 MG TAB PO SCH (22:46)
[2016-09-06] VITALS (28 sets, daily range): BP systolic 82–99; BP diastolic 52–76; PULSE 73–108; RESP 16–18; TEMP 97.8–98.7; O2SAT 96–98
[2016-09-06] MEDS: CHLORHEXIDINE GLUCONATE 2 % 1 PACK (2 CLOTHS) TOP SCH (04:00)
[2016-09-06] MEDS: RESP: ALBUTEROL 2.5 MG/IPRATROPIUM 0.5 MG NEB (SCH) NEB ×2 (04:34→07:44)
[2016-09-06 05:12] LABS: PROTHROMBIN TIME - PATIENT 46.5 SEC (9.8-11.6)
[2016-09-06 05:38] LABS: BICARBONATE 24.9 MEQ/L (21.0-32.0); POTASSIUM 3.8 MEQ/L (3.5-5.1)
[2016-09-06 05:59] LABS: CALCIUM-PROTEIN CORRECTED 7.5 MG/DL (8.5-10.1)
[2016-09-06] MEDS: HYDROCORTISONE SOD SUCCINATE 100 MG VIAL IV PUSH SCH ×3 (06:53→21:30)
[2016-09-06] MEDS: INSULIN ASPART SUPPLEMENTAL SCALE SQ SCH ×4 (07:00→21:45)
[2016-09-06] MEDS: SEVELAMER CARBONATE 800 MG TAB PO SCH ×3 (08:00→18:39)
[2016-09-06] MEDS: SODIUM CHLORIDE 0.9% FLUSH 10 ML FLUSH IV FLUSH SCH ×2 (09:00→21:32)
--- NOTE | 2016-09-06 09:43 | PD.CARD.PN ---
Subjective Subjective Remarks The patient denies CP or increased SOB. Per the patient, he denies recurrent episodes of AMS. INR 4 today. No obvious signs of bleeding Objective Medications Current Medications Medications (Trade) Dose Ordered Sig/Katina Route Start Time Stop Time Status Last Admin (Rocaltrol) 0.25 mcg DAILY PO 09/01/16 09:00 09/05/16 09:26 (Vitamin D3) 2,000 units DAILY PO 09/01/16 09:00 09/05/16 09:26 (Tambocor) 75 mg BID PO 09/01/16 00:30 09/05/16 20:37 (Neurontin) 100 mg BID PO 09/01/16 00:30 09/05/16 20:37 (Coumadin) 2.5 mg SuTuThSa@16 PO 09/01/16 16:00 Hold 09/03/16 16:00 (Coumadin) 5 mg MoWeFr@16 PO 09/02/16 16:00 Hold 09/04/16 18:03 (Nephrocaps) 1 cap DAILY PO 09/01/16 09:00 09/05/16 09:25 (Protonix) 20 mg HS PO 09/01/16 00:45 09/05/16 20:37 (Proamatine) 10 mg TID PO 09/01/16 09:00 09/05/16 13:08 (Pill Splitter) 1 ea UNSCH PRN OTHER 09/01/16 01:00 09/01/16 11:12 (NS Flush) 2 ml UNSCH PRN IV FLUSH 09/01/16 01:00 (NS Flush) 2 ml BID IV FLUSH 09/01/16 09:00 09/05/16 20:38 (Tylenol) 650 mg Q6H PRN PO 09/01/16 01:00 09/01/16 21:43 ([place] 5-325 Mg) 1 tab Q4H PRN PO 09/01/16 01:00 09/02/16 06:46 (Zofran Inj) 4 mg Q6H PRN IV 09/01/16 01:00 Miscellaneous Information 1 Q361D XX 09/01/16 01:00 09/01/16 01:00 (Chlorhexidine 2% Cloth) Taper DAILY@04 TOP 09/01/16 04:00 08/28/17 03:59 09/01/16 02:25 (Chlorhexidine 2% Cloth) 3 pack UNSCH PRN TOP 09/01/16 01:00 (Leah-Colace) 1 tab BID PO 09/01/16 09:00 09/05/16 20:37 (Milk Of Magnesia Liq) 30 ml Q12H PRN PO 09/01/16 01:00 (Senokot) 17.2 mg Q12H PRN PO 09/01/16 01:00 (Dulcolax Supp) 10 mg DAILY PRN RECTAL 09/01/16 01:00 (Lactulose Liq) 30 ml DAILY PRN PO 09/01/16 01:00 (D50w (Vial) Inj) 50 ml UNSCH PRN IV 09/01/16 02:00 (Glucagon Inj) 1 mg UNSCH PRN OTHER 09/01/16 02:00 (Renvela) 2,400 mg TIDAC PO 09/01/16 17:00 09/05/16 19:12 (Cepacol Extra Katty (Sugar Free)) 1 lozenge Q4H PRN BUCCAL 09/02/16 00:45 09/05/16 17:04 (Debrox 6.5% Otic) 5 drop Q12HR RIGHT EAR 09/02/16 21:30 09/07/16 21:29 09/05/16 20:36 Hydrocortisone Sodium Succinate 50 mg 50 mg Q8HR IV PUSH 09/03/16 14:00 09/06/16 06:53 (Coumadin Consult Pharmacy) 0 ml @ 0 mls/hr UNSCH OTHER 09/04/16 10:30 (Tessalon) 200 mg TID PRN PO 09/04/16 14:00 09/05/16 01:05 (KCl) 20 meq Q12HR PO 09/04/16 15:45 09/05/16 20:37 (Metamucil Smooth Texture Sf/ Gf Pkt) 1 pkt DAILY PO 09/04/16 20:00 09/05/16 13:07 (Aspirin Chew) 81 mg DAILY CHEW 09/06/16 09:00 Hold (Keppra) 250 mg Q12HR PO 09/05/16 21:00 09/05/16 22:46 (Zithromax) 500 mg Q24H PO 09/06/16 20:00 Vital Signs / I&O Vital Signs Date Time Temp Pulse Resp B/P Pulse Ox O2 Delivery O2 Flow Rate FiO2 09/06/16 07:44 98 Nasal Cannula 2.50 09/06/16 06:00 90 09/06/16 05:00 84 09/06/16 04:03 73 09/06/16 03:00 84 09/06/16 02:00 76 09/06/16 01:00 98.7 97 18 97/63 97 09/06/16 01:00 80 09/06/16 00:00 89 09/05/16 23:00 89 09/05/16 22:00 82 09/05/16 21:00 96 09/05/16 20:53 98 Nasal Cannula 3.00 09/05/16 20:00 97 09/05/16 20:00 98.6 72 18 103/62 97 09/05/16 19:00 72 09/05/16 18:00 88 09/05/16 16:54 98.1 104 14 94/73 97 09/05/16 16:30 91 09/05/16 14:42 78 09/05/16 13:46 98 09/05/16 12:24 98.2 74 16 91/54 92 09/05/16 11:08 94 09/05/16 10:00 86 I/O 09/05/16 09/05/16 09/05/16 09/06/16 09/06/16 09/06/16 07:00 15:00 23:00 07:00 15:00 23:00 Intake Total 490 ml 820 ml 490 ml Output Total 898 ml 0 ml Balance 490 ml -898 ml 820 ml 490 ml Intake Oral 240 ml 720 ml 240 ml IV Total 250 ml 100 ml 250 ml Output Urine Total 0 ml Peritoneal Fluid 898 ml # Bowel Movements 1 1 Physical Exam GENERAL: middle aged male in CVSDU SKIN: Warm and dry. HEAD: Normocephalic. EYES: No scleral icterus. No injection or drainage. NECK: Supple, trachea midline.no JVD CARDIOVASCULAR: Irregularly irreg, mumur, trace lower extremity edema RESPIRATORY: Good inspiratory effort GASTROINTESTINAL: Abdomen soft, non-tender, nondistended. MUSCULOSKELETAL: No cyanosis, BACK: Nontender without obvious deformity. No CVA tenderness. Laboratory Laboratory Tests Test 09/06/16 04:47 Prothrombin Time 46.5 SEC Prothromb Time International 4.0 RATIO Ratio Sodium Level 133 MEQ/L Potassium Level 3.8 MEQ/L Chloride Level 96 MEQ/L Carbon Dioxide Level 24.9 MEQ/L Anion Gap 12 MEQ/L Blood Urea Nitrogen 70 MG/DL Creatinine 6.80 MG/DL Estimat Glomerular Filtration 8 ML/MIN Rate Random Glucose 149 MG/DL Calcium Level 7.1 MG/DL Protein Corrected Calcium 7.5 MG/DL Total Protein 6.3 GM/DL Imaging Last 72 hours Impressions Brain MRI 09/04/16 0000 Signed Impressions: Service Date/Time: Sunday, September 04, 2016 16:55 - CONCLUSION: 1. Tiny acute subcentimeter lacunar infarct posterior right frontal lobe. 2. 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 No mass effect or shift. Anthony Astorga MD Assessment and Plan Assessment and Plan ASSESSMENT Chest pain with slightly elevated troponins. Chest pain and elevated troponin due to pulmonary edema and fluid overload. Atrial fibrillation on coumadin ASHD, heart cath 01/2014 TAVR 03/2014 Severe MS, Mod MR, RVSP 54, EF 50-55% Echo 09/04/2016 Hypotension- on midodrine. 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 Hart. AMS- abnormal EEG and MRI shows new, small lacunar stroke. PLAN We will continue conservative management for severe mitral stenosis. Will consider evaluation for surgery once the patient is more stable. We will address this outpatient. Diuresis/dialysis per nephrology Coumadin on hold. INR 4 today. Add hold parameters to ASA for INR > 3. Patient has a history of brain bleed The patient is stable from a cardiac standpoint for discharge. We will followup on Friday Assessment and plan discussed with Shaylee Hanks Sep 06, 2016 09:43
[2016-09-06] MEDS: levETIRAcetam 250 MG TAB PO SCH ×2 (10:30→21:31)
[2016-09-06] MEDS: CALCITRIOL 0.25 MCG CAP PO SCH (10:30)
[2016-09-06] MEDS: PSYLLIUM FIBER SF/GF 6 GM POWD PKT PO SCH (10:30)
[2016-09-06] MEDS: DOCUSATE SODIUM 50 MG/SENNA 8.6 MG TAB PO SCH ×2 (10:30→21:00)
[2016-09-06] MEDS: GABAPENTIN 100 MG CAP PO SCH ×2 (10:30→21:30)
[2016-09-06] MEDS: CHOLECALCIFEROL (VIT D3) 1000 UNIT TAB PO SCH (10:30)
[2016-09-06] MEDS: VITAMIN B CMPLX/VITC/FOLIC AC CAP PO SCH (10:30)
[2016-09-06] MEDS: POLYETHYLENE GLYCOL 17 GM PKG PO SCH (10:30)
[2016-09-06] MEDS: CARBAMIDE PEROXIDE 6.5% OTIC SOLN 15 ML BTL RIGHT EAR SCH ×2 (10:30→21:32)
[2016-09-06] MEDS: MIDODRINE 5 MG TAB PO SCH ×3 (10:30→18:38)
--- NOTE | 2016-09-06 11:19 | HHI.PR ---
Subjective History of Present Illness Alert, oriented 3, tremor again this morning, this involves both upper extremities and lower extremities, less cough , no resting dyspnea , no chest pain , seen in the presence of his , eating better , was taken out of bed to chair today by physical therapy, Review of Systems Constitutional Constitutional Remarks General weakness, tremors, possible seizures according to EEG report, dyspnea on minimal activity, baseline ambulation on wheelchair only, 10 systems reviewed otherwise negative Vitals/Results Intake & Output 09/05/16 09/05/16 09/06/16 15:00 23:00 07:00 Intake Total 820 ml 490 ml Output Total 898 ml 0 ml Balance -898 ml 820 ml 490 ml Intake Oral 720 ml 240 ml IV Total 100 ml 250 ml Output Urine Total 0 ml Peritoneal Fluid 898 ml # Bowel Movements 1 Vital Signs Vital Signs Date Time Temp Pulse Resp B/P Pulse Ox O2 Delivery O2 Flow Rate FiO2 09/06/16 07:44 98 Nasal Cannula 2.50 09/06/16 06:00 90 09/06/16 05:00 84 09/06/16 04:03 73 09/06/16 03:00 84 09/06/16 02:00 76 09/06/16 01:00 98.7 97 18 97/63 97 09/06/16 01:00 80 09/06/16 00:00 89 09/05/16 23:00 89 09/05/16 22:00 82 09/05/16 21:00 96 09/05/16 20:53 98 Nasal Cannula 3.00 09/05/16 20:00 97 09/05/16 20:00 98.6 72 18 103/62 97 09/05/16 19:00 72 09/05/16 18:00 88 09/05/16 16:54 98.1 104 14 94/73 97 09/05/16 16:30 91 09/05/16 14:42 78 09/05/16 13:46 98 09/05/16 12:24 98.2 74 16 91/54 92 CBC/BMP: 09/05/16 0600 09/06/16 0447 Lab Results Laboratory Tests Test 09/06/16 04:47 Prothrombin Time 46.5 SEC Prothromb Time International 4.0 RATIO Ratio Sodium Level 133 MEQ/L Potassium Level 3.8 MEQ/L Chloride Level 96 MEQ/L Carbon Dioxide Level 24.9 MEQ/L Anion Gap 12 MEQ/L Blood Urea Nitrogen 70 MG/DL Creatinine 6.80 MG/DL Estimat Glomerular Filtration 8 ML/MIN Rate Random Glucose 149 MG/DL Calcium Level 7.1 MG/DL Protein Corrected Calcium 7.5 MG/DL Total Protein 6.3 GM/DL Physical Exam General General Appearance: Well Developed, Comfortable, Pale Eyes Eye Exam: Pupils Reactive Ears & Nose Ears & Nose Exam: Nasal Mucosa [place] Throat Throat Exam: Oral Mucosa [place] & Moist Neck Neck Exam: Trachea Midline Pulmonary Resp Exam: Crackles Cardiology CV Exam: Regular, Murmur Gastrointestinal/Abdomen GI Exam: Non-Tender, Bowel Sounds Present, Non-Distended Musculoskeletal MS Exam: Normal Tone Integumentary Skin Exam: Warm, Dry Extremeties Extremities Exam: No Edema, Pedal Pulses Palpable Neurologic Neuro Exam: Alert, Awake, Oriented, Speech Clear, Moving All Extremities Psychiatric Psych Exam: Appropriate Responses VTE Prophylaxis VTE Prophylaxis Meds: Coumadin Assessment/Plan Assessment/Plan Assessment Tremor /asterixis Epilepsy according to EEG Episodes of Confusion Acute small right frontal lacunar infarct posteriorly Severe mitral stenosis with moderate regurgitation according to echo report Admitted with respiratory insufficiency, improved Pulmonary edema, improved Hypokalemia, resolved Hypoxemia, improved End-stage renal disease on dialysis Pulmonary hypertension Aortic stenosis status post TAVR Nonischemic cardiomyopathy Paroxysmal atrial fibrillation Anemia of chronic disease Deconditioning Chronic debility on a wheelchair hx COPD, subarachnoid hemorrhage, peripheral neuropathy, cervical and lumbar fusion, Hearing loss, bilateral cataracts, chronic narcotic use, renal transplantation twice, Nonischemic cardiomyopathy,Paroxysmal atrial fibrillation on flecainide, mitral stenosis, RBBB, Orthostatic hypotension on long-term midodrine Management Continue Keppra 250 mg twice a day, may need dose increased Aspirin, 81 milligrams as he has a history of bleed Continue supplemental oxygen Continue dialysis telemetry Keep in negative fluid balance if possible Cardiology and nephrology following Continue Coumadin, keep INR between 2 and 3 Discussed with patient and his Discussed with nurse 35 minutes Vlad Baltazar MD Sep 06, 2016 11:19 35 minutes Vlad Baltazar MD Sep 06, 2016 11:19
--- NOTE | 2016-09-06 11:54 | HHI.NPPN ---
Subjective History of Present Illness 65-year-old on PD with congestive heart failure Review of Systems General Constitutional: Fatigue Objective Data Data 09/05/16 09/06/16 19:00 07:00 Intake Total 820 ml 490 ml Output Total 898 ml 0 ml Balance -78 ml 490 ml Intake Oral 720 ml 240 ml IV Total 100 ml 250 ml Output Urine Total 0 ml Peritoneal Fluid 898 ml # Bowel Movements 1 Vital Signs Date Time Temp Pulse Resp B/P Pulse Ox O2 Delivery O2 Flow Rate FiO2 09/06/16 07:44 98 Nasal Cannula 2.50 09/06/16 06:00 90 09/06/16 05:00 84 09/06/16 04:03 73 09/06/16 03:00 84 09/06/16 02:00 76 09/06/16 01:00 98.7 97 18 97/63 97 09/06/16 01:00 80 09/06/16 00:00 89 09/05/16 23:00 89 09/05/16 22:00 82 09/05/16 21:00 96 09/05/16 20:53 98 Nasal Cannula 3.00 09/05/16 20:00 97 09/05/16 20:00 98.6 72 18 103/62 97 09/05/16 19:00 72 09/05/16 18:00 88 09/05/16 16:54 98.1 104 14 94/73 97 09/05/16 16:30 91 09/05/16 14:42 78 09/05/16 13:46 98 09/05/16 12:24 98.2 74 16 91/54 92 -: 09/05/16 0600 09/06/16 0447 Physical Exam General Appearance: Well Developed, Comfortable, Pale Eyes Eye Exam: Pupils Reactive Ears & Nose Ears & Nose Exam: Nasal Mucosa [place] Throat Throat Exam: Oral Mucosa [place] & Moist Neck Neck Exam: Trachea Midline Pulmonary Resp Exam: Crackles Cardiology CV Exam: Regular, Murmur Gastrointestinal/Abdomen GI Exam: Non-Tender, Bowel Sounds Present, Non-Distended Musculoskeletal MS Exam: Normal Tone Integumentary Skin Exam: Warm, Dry Extremeties Extremities Exam: No Edema, Pedal Pulses Palpable Neurologic Neuro Exam: Alert, Awake, Oriented, Speech Clear, Moving All Extremities Neuro Remarks tremors Psychiatric Psych Exam: Appropriate Responses Assessment/Plan Problem List: (1) ESRD (end stage renal disease) on dialysis Plan: Patient received dialysis Continue to dialyze him follow clinically replace K Tremors EEG abnormal Tremors on Keppra (2) Congestive heart failure Plan: Patient has T Zachary Domingo MD Sep 06, 2016 11:54
[2016-09-06] MEDS: POTASSIUM CHLORIDE 10 MEQ CONTROLLED RELEASE TAB PO SCH ×2 (12:00→21:31)
[2016-09-06] MEDS: FLECAINIDE ACETATE 100 MG TAB PO SCH ×2 (15:41→21:31)
--- NOTE | 2016-09-06 17:44 | HHI.PR ---
Review/Management Diagnosis - Acute ischemic lacunar stroke on the right posterior frontal lobe - H/o left parietal non - traumatic ICH - Asterixis/ chronic , likely etiology is end organ failure - Abnormal EEG, that revealed evidence of epileptogenicity - Hereditary neuropathy - H/o of restless leg syndrome - H/o hypotension - CKD - H/o of left sided sciatica Plan - Neuro check Q4h - Continue home medications - Continue Keppra 250mg bid - Continue home anticoagulant therapy - PT/OT, recommendations are appreciated - DVT prophylaxis, SCDs' - GI prophylaxis Diagnosis/Plan: Subjective Subjective Comments No acute events reported No reported seizures Patient feels sleepy today but with less hand tremors Breathing has improved with less secretions Active Medications Current Medications Medications (Trade) Dose Ordered Sig/Katina Route Start Time Stop Time Status Last Admin (Rocaltrol) 0.25 mcg DAILY PO 09/01/16 09:00 09/06/16 10:30 (Vitamin D3) 2,000 units DAILY PO 09/01/16 09:00 09/06/16 10:30 (Tambocor) 75 mg BID PO 09/01/16 00:30 09/06/16 15:41 (Neurontin) 100 mg BID PO 09/01/16 00:30 09/06/16 10:30 (Coumadin) 2.5 mg SuTuThSa@16 PO 09/01/16 16:00 Hold 09/03/16 16:00 (Coumadin) 5 mg MoWeFr@16 PO 09/02/16 16:00 Hold 09/04/16 18:03 (Nephrocaps) 1 cap DAILY PO 09/01/16 09:00 09/06/16 10:30 (Protonix) 20 mg HS PO 09/01/16 00:45 09/05/16 20:37 (Proamatine) 10 mg TID PO 09/01/16 09:00 09/06/16 10:30 (Pill Splitter) 1 ea UNSCH PRN OTHER 09/01/16 01:00 09/01/16 11:12 (NS Flush) 2 ml UNSCH PRN IV FLUSH 09/01/16 01:00 (NS Flush) 2 ml BID IV FLUSH 09/01/16 09:00 09/06/16 09:00 (Tylenol) 650 mg Q6H PRN PO 09/01/16 01:00 09/01/16 21:43 ([place] 5-325 Mg) 1 tab Q4H PRN PO 09/01/16 01:00 09/02/16 06:46 (Zofran Inj) 4 mg Q6H PRN IV 09/01/16 01:00 Miscellaneous Information 1 Q361D XX 09/01/16 01:00 09/01/16 01:00 (Chlorhexidine 2% Cloth) Taper DAILY@04 TOP 09/01/16 04:00 08/28/17 03:59 09/01/16 02:25 (Chlorhexidine 2% Cloth) 3 pack UNSCH PRN TOP 09/01/16 01:00 (Leah-Colace) 1 tab BID PO 09/01/16 09:00 09/05/16 20:37 (Milk Of Magnesia Liq) 30 ml Q12H PRN PO 09/01/16 01:00 (Senokot) 17.2 mg Q12H PRN PO 09/01/16 01:00 (Dulcolax Supp) 10 mg DAILY PRN RECTAL 09/01/16 01:00 (Lactulose Liq) 30 ml DAILY PRN PO 09/01/16 01:00 (D50w (Vial) Inj) 50 ml UNSCH PRN IV 09/01/16 02:00 (Glucagon Inj) 1 mg UNSCH PRN OTHER 09/01/16 02:00 (Renvela) 2,400 mg TIDAC PO 09/01/16 17:00 09/06/16 12:00 (Cepacol Extra Katty (Sugar Free)) 1 lozenge Q4H PRN BUCCAL 09/02/16 00:45 09/05/16 17:04 (Debrox 6.5% Otic) 5 drop Q12HR RIGHT EAR 09/02/16 21:30 09/07/16 21:29 09/06/16 10:30 Hydrocortisone Sodium Succinate 50 mg 50 mg Q8HR IV PUSH 09/03/16 14:00 09/06/16 15:41 (Coumadin Consult Pharmacy) 0 ml @ 0 mls/hr UNSCH OTHER 09/04/16 10:30 (Tessalon) 200 mg TID PRN PO 09/04/16 14:00 09/05/16 01:05 (Metamucil Smooth Texture Sf/ Gf Pkt) 1 pkt DAILY PO 09/04/16 20:00 09/05/16 13:07 (Aspirin Chew) 81 mg DAILY CHEW 09/06/16 09:00 Hold (Keppra) 250 mg Q12HR PO 09/05/16 21:00 09/06/16 10:30 (Zithromax) 500 mg Q24H PO 09/06/16 20:00 (KCl) 20 meq Q12HR PO 09/06/16 11:30 09/06/16 12:00 Allergies Allergies Coded Allergies No Known Allergies (Unverified08/31/16) Review of Systems All other ROS: ROS reviewed as documented in chart Exam I&O / VS 09/05/16 09/05/16 09/06/16 15:00 23:00 07:00 Intake Total 820 ml 490 ml Output Total 898 ml 0 ml Balance -898 ml 820 ml 490 ml Intake Oral 720 ml 240 ml IV Total 100 ml 250 ml Output Urine Total 0 ml Peritoneal Fluid 898 ml # Bowel Movements 1 Vital Signs Date Time Temp Pulse Resp B/P Pulse Ox O2 Delivery O2 Flow Rate FiO2 09/06/16 07:44 98 Nasal Cannula 2.50 09/06/16 06:00 90 09/06/16 05:00 84 09/06/16 04:03 73 09/06/16 03:00 84 09/06/16 02:00 76 09/06/16 01:00 98.7 97 18 97/63 97 09/06/16 01:00 80 09/06/16 00:00 89 09/05/16 23:00 89 09/05/16 22:00 82 09/05/16 21:00 96 09/05/16 20:53 98 Nasal Cannula 3.00 09/05/16 20:00 97 09/05/16 20:00 98.6 72 18 103/62 97 09/05/16 19:00 72 09/05/16 18:00 88 General: Alert and Oriented, Mild distress Eye: PERRL, EOMI Respiratory: Coarse breath sounds, Other (laboured breathing) Cardiology: Normal rate, Normal peripheral perfusion Neurologic: Alert, Oriented, Other (oriented to person, time and place, no dysarhtria, no dysphasia, b/l limited movements of both shoulders / chronic, generalized muscle wasting, particulary in both hand muscles, b/l LE weakness/ chronic, no fasciculations, diminished senssation in a stockings fashion, sluggish b/l ankle reflexes , 2+ otherwise' prominent b/l hand asterexis/ flapping tremor.acute on chronic) Objective Radiology Results Last 72 hours Impressions Brain MRI 09/04/16 0000 Signed Impressions: Service Date/Time: Sunday, September 04, 2016 16:55 - CONCLUSION: 1. Tiny acute subcentimeter lacunar infarct posterior right frontal lobe. 2. 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 No mass effect or shift. Anthony Astorga MD Micro and Labs Laboratory Tests Test 09/06/16 04:47 Prothrombin Time 46.5 Prothromb Time International 4.0 Ratio Sodium Level 133 Potassium Level 3.8 Chloride Level 96 Carbon Dioxide Level 24.9 Anion Gap 12 Blood Urea Nitrogen 70 Creatinine 6.80 Estimat Glomerular Filtration 8 Rate Random Glucose 149 Calcium Level 7.1 Protein Corrected Calcium 7.5 Total Protein 6.3 Date/Time Procedure Status Source Growth 09/01/16 19:20 Aerobic Blood Culture - Final Complete Blood Peripheral NO GROWTH IN 5 DAYS 09/01/16 19:20 Anaerobic Blood Culture - Final Complete Blood Peripheral NO GROWTH IN 5 DAYS Kike Tracey MD Sep 06, 2016 17:44
[2016-09-06] MEDS: AZITHROMYCIN 250 MG TAB PO SCH (21:30)
[2016-09-06] MEDS: PANTOPRAZOLE SOD 20 MG DELAYED RELEASE TAB PO SCH (21:31)
[2016-09-07] VITALS (31 sets, daily range): BP systolic 91–102; BP diastolic 56–73; PULSE 57–118; RESP 18–20; TEMP 97.6–98.6; O2SAT 93–99
[2016-09-07] MEDS: CHLORHEXIDINE GLUCONATE 2 % 1 PACK (2 CLOTHS) TOP SCH (04:00)
[2016-09-07 06:03] LABS: INTERNATIONAL NORMALIZED RATIO 2.9 RATIO; PROTHROMBIN TIME - PATIENT 33.3 SEC (9.8-11.6)
[2016-09-07] MEDS: HYDROCORTISONE SOD SUCCINATE 100 MG VIAL IV PUSH SCH ×3 (06:24→21:03)
[2016-09-07] MEDS: INSULIN ASPART SUPPLEMENTAL SCALE SQ SCH ×4 (06:30→21:15)
[2016-09-07] MEDS: [UNRECOGNIZED DRUG - OTHER] TOPICAL SCH (09:00)
[2016-09-07] MEDS: PSYLLIUM FIBER SF/GF 6 GM POWD PKT PO SCH (09:00)
[2016-09-07] MEDS: CEFEPIME INJ 2,000 MG in SODIUM CHLORIDE 0.9% INJ 100 ML IV SCH (09:00)
[2016-09-07] MEDS: SEVELAMER CARBONATE 800 MG TAB PO SCH ×3 (09:25→17:00)
[2016-09-07] MEDS: MIDODRINE 5 MG TAB PO SCH ×3 (09:25→18:00)
[2016-09-07] MEDS: FLECAINIDE ACETATE 100 MG TAB PO SCH ×2 (09:25→21:03)
[2016-09-07] MEDS: VITAMIN B CMPLX/VITC/FOLIC AC CAP PO SCH (09:25)
[2016-09-07] MEDS: CALCITRIOL 0.25 MCG CAP PO SCH (09:26)
[2016-09-07] MEDS: POTASSIUM CHLORIDE 10 MEQ CONTROLLED RELEASE TAB PO SCH ×2 (09:27→21:03)
[2016-09-07] MEDS: GABAPENTIN 100 MG CAP PO SCH ×2 (09:27→21:02)
[2016-09-07] MEDS: CARBAMIDE PEROXIDE 6.5% OTIC SOLN 15 ML BTL RIGHT EAR SCH ×2 (09:27→21:04)
[2016-09-07] MEDS: CHOLECALCIFEROL (VIT D3) 1000 UNIT TAB PO SCH (09:27)
[2016-09-07] MEDS: levETIRAcetam 250 MG TAB PO SCH ×2 (09:27→21:02)
[2016-09-07] MEDS: DOCUSATE SODIUM 50 MG/SENNA 8.6 MG TAB PO SCH ×2 (09:27→21:03)
[2016-09-07] MEDS: SODIUM CHLORIDE 0.9% FLUSH 10 ML FLUSH IV FLUSH SCH ×2 (09:28→21:00)
--- NOTE | 2016-09-07 11:13 | HHI.NPPN ---
Subjective History of Present Illness 65-year-old on PD with congestive heart failure Interval History PD carried out. UF 1212 ml. Review of Systems General Constitutional: Fatigue Objective Data Data 09/06/16 09/07/16 19:00 07:00 Intake Total 480 ml 240 ml Output Total 1212 ml Balance -732 ml 240 ml Intake Oral 480 ml 240 ml Peritoneal Fluid 1212 ml # Voids 0 # Bowel Movements 0 1 Vital Signs Date Time Temp Pulse Resp B/P Pulse Ox O2 Delivery O2 Flow Rate FiO2 09/07/16 10:59 98 21 09/07/16 06:00 88 09/07/16 05:00 94 09/07/16 04:00 97 09/07/16 03:00 98.6 94 18 97/73 97 09/07/16 03:00 87 09/07/16 03:00 97 Nasal Cannula 2.00 09/07/16 02:00 96 09/07/16 01:00 102 09/07/16 00:00 100 09/06/16 23:00 100 09/06/16 23:00 98.2 87 16 98/76 96 09/06/16 23:00 96 Nasal Cannula 2.00 09/06/16 22:00 98 09/06/16 21:00 88 09/06/16 20:20 97 Nasal Cannula 2.00 09/06/16 20:00 90 09/06/16 19:00 92 09/06/16 19:00 98.0 81 18 99/65 96 09/06/16 19:00 96 Nasal Cannula 2.00 09/06/16 18:00 94 09/06/16 17:00 94 09/06/16 16:15 96 09/06/16 16:15 97.8 96 16 93/64 96 09/06/16 16:00 92 09/06/16 15:00 86 09/06/16 14:00 94 09/06/16 13:00 94 09/06/16 12:00 96 09/06/16 11:45 97.8 108 16 82/52 96 09/06/16 11:45 98 -: 09/05/16 0600 09/06/16 0447 Physical Exam General Appearance: Well Developed, Comfortable, Pale Eyes Eye Exam: Pupils Reactive Ears & Nose Ears & Nose Exam: Nasal Mucosa [place] Throat Throat Exam: Oral Mucosa [place] & Moist Neck Neck Exam: Trachea Midline Pulmonary Resp Exam: Crackles Cardiology CV Exam: Regular, Murmur Gastrointestinal/Abdomen GI Exam: Non-Tender, Bowel Sounds Present, Non-Distended Musculoskeletal MS Exam: Normal Tone Integumentary Skin Exam: Warm, Dry Extremeties Extremities Exam: No Edema, Pedal Pulses Palpable Neurologic Neuro Exam: Alert, Awake, Oriented, Speech Clear Psychiatric Psych Exam: Appropriate Responses Assessment/Plan Problem List: (1) ESRD (end stage renal disease) on dialysis Plan: Continue PD. Monitor fluid and electrolytes. (2) Congestive heart failure Plan: Patient has T aVR (3) CVA (cerebral vascular accident) Plan: Neurology following. Luis Austin MD Sep 07, 2016 11:13
--- NOTE | 2016-09-07 16:26 | HHI.PR ---
Subjective Subjective Remarks Resting in bed sitting straight up with head of bed elevated approximately 80 Awake and responsive in room Still very weak and deconditioned, requesting to continue to work with PT , OT added (Lilia Siegel) Review of Systems Constitutional Constitutional: Fatigue, Weakness Constitutional Remarks 10 point ROS done positives noted (Lilia Siegel) Pulmonary Respiratory: Coughing, Shortness of Breath (Lilia Siegel) Cardiology CV: Chest Pain (controlled) (Lilia Siegel) GI/Abdomen GI/Abdominal Exam: Constipation (monitor bowel regimen) (Lilia Siegel) Musculoskeletal MS: Weakness, Stiffness (Lilia Siegel) Neurologic Neurologic Remarks Monitor seizure disorder (Lilia Siegel) Psychiatric Psychiatric: Normal Mood, Anxiety (Lilia Siegel) Vitals/Results Intake & Output 09/06/16 09/06/16 09/07/16 15:00 23:00 07:00 Intake Total 480 ml 240 ml Output Total 1212 ml Balance -1212 ml 480 ml 240 ml Intake Oral 480 ml 240 ml Peritoneal Fluid 1212 ml # Voids 0 # Bowel Movements 0 1 Vital Signs Vital Signs Date Time Temp Pulse Resp B/P Pulse Ox O2 Delivery O2 Flow Rate FiO2 09/07/16 16:01 86 09/07/16 15:45 98.0 85 20 100/62 93 09/07/16 15:45 99 Room Air 09/07/16 15:00 85 09/07/16 14:00 100 09/07/16 13:01 94 09/07/16 12:00 84 09/07/16 11:01 99 Room Air 09/07/16 11:01 97.6 57 20 91/56 99 09/07/16 11:00 86 09/07/16 10:59 98 21 09/07/16 10:00 94 09/07/16 09:00 88 09/07/16 08:45 97 Room Air 09/07/16 08:45 97.7 118 20 102/68 97 09/07/16 08:00 90 09/07/16 07:00 84 09/07/16 06:00 88 09/07/16 05:00 94 09/07/16 04:00 97 09/07/16 03:00 98.6 94 18 97/73 97 09/07/16 03:00 87 09/07/16 03:00 97 Nasal Cannula 2.00 09/07/16 02:00 96 09/07/16 01:00 102 09/07/16 00:00 100 09/06/16 23:00 100 09/06/16 23:00 98.2 87 16 98/76 96 09/06/16 23:00 96 Nasal Cannula 2.00 09/06/16 22:00 98 09/06/16 21:00 88 09/06/16 20:20 97 Nasal Cannula 2.00 09/06/16 20:00 90 09/06/16 19:00 92 09/06/16 19:00 98.0 81 18 99/65 96 09/06/16 19:00 96 Nasal Cannula 2.00 09/06/16 18:00 94 09/06/16 17:00 94 (Lilia Siegel) CBC/BMP: 09/05/16 0600 09/06/16 0447 Lab Results Laboratory Tests Test 09/07/16 04:40 Prothrombin Time 33.3 SEC Prothromb Time International 2.9 RATIO Ratio Current Medications Administered Medications Medications (Trade) Dose Ordered Sig/Katina Route PRN Reason Start Time Stop Time Status Last Admin Dose Admin Calcitriol (Rocaltrol) 0.25 mcg DAILY PO 09/01/16 09:00 09/07/16 09:26 Cholecalciferol (Vitamin D3) 2,000 units DAILY PO 09/01/16 09:00 09/07/16 09:27 Flecainide Acetate (Tambocor) 75 mg BID PO 09/01/16 00:30 09/07/16 09:25 Gabapentin (Neurontin) 100 mg BID PO 09/01/16 00:30 09/07/16 09:27 Warfarin Sodium (Coumadin) 2.5 mg SuTuThSa@16 PO 09/01/16 16:00 Hold 09/03/16 16:00 Warfarin Sodium (Coumadin) 5 mg MoWeFr@16 PO 09/02/16 16:00 Hold 09/04/16 18:03 Vitamin B Complex/ Vit C/Folic Acid (Nephrocaps) 1 cap DAILY PO 09/01/16 09:00 09/07/16 09:25 Pantoprazole Sodium (Protonix) 20 mg HS PO 09/01/16 00:45 09/06/16 21:31 Midodrine (Proamatine) 10 mg TID PO 09/01/16 09:00 09/07/16 13:31 Miscellaneous (Pill Splitter) 1 ea UNSCH PRN OTHER SEE LABEL COMMENTS 09/01/16 01:00 09/01/16 11:12 Sodium Chloride (NS Flush) 2 ml BID IV FLUSH 09/01/16 09:00 09/07/16 09:28 Acetaminophen (Tylenol) 650 mg Q6H PRN PO FEVER >100F 09/01/16 01:00 09/01/16 21:43 Acetaminophen/ Hydrocodone Bitart ([place] 5-325 Mg) 1 tab Q4H PRN PO PAIN 1-10 09/01/16 01:00 09/02/16 06:46 Miscellaneous Information 1 Q361D XX 09/01/16 01:00 09/01/16 01:00 Chlorhexidine Gluconate (Chlorhexidine 2% Cloth) Taper DAILY@04 TOP 09/01/16 04:00 08/28/17 03:59 09/01/16 02:25 Senna/Docusate Sodium (Leah-Colace) 1 tab BID PO 09/01/16 09:00 09/07/16 09:27 Sevelamer Carbonate (Renvela) 2,400 mg TIDAC PO 09/01/16 17:00 09/07/16 13:30 Benzocaine/Menthol (Cepacol Extra Katty (Sugar Free)) 1 lozenge Q4H PRN BUCCAL SORE THROAT 09/02/16 00:45 09/05/16 17:04 Carbamide Peroxide (Debrox 6.5% Otic) 5 drop Q12HR RIGHT EAR 09/02/16 21:30 09/07/16 21:29 09/07/16 09:27 Hydrocortisone Sodium Succinate (SoluCORTEF INJ) 50 mg Q8HR IV PUSH 09/03/16 14:00 09/07/16 13:31 Benzonatate (Tessalon) 200 mg TID PRN PO cough 09/04/16 14:00 09/05/16 01:05 Psyllium Hydrophilic Mucilloid (Metamucil Smooth Texture Sf/ Gf Pkt) 1 pkt DAILY PO 09/04/16 20:00 09/05/16 13:07 Levetriacetam (Keppra) 250 mg Q12HR PO 09/05/16 21:00 09/07/16 09:27 Azithromycin (Zithromax) 500 mg Q24H PO 09/06/16 20:00 09/06/16 21:30 Potassium Chloride (KCl) 20 meq Q12HR PO 09/06/16 11:30 09/07/16 09:27 Patient Own Medication PT OWN MED: SASHA... DAILY TOPICAL 09/07/16 09:00 09/07/16 09:00 (Lilia Siegel) Physical Exam General General Appearance: Well Developed, Comfortable, Pale (Lilia Siegel) Eyes Eye Exam: Pupils Equal, Pupils Reactive (Lilia Siegel) Ears & Nose Ears & Nose Exam: Nasal Mucosa [place] (Lilia Siegel) Throat Throat Exam: Oral Mucosa [place] & Moist (Lilia Siegel) Neck Neck Exam: Trachea Midline (Lilia Siegel) Pulmonary Resp Exam: Crackles, Decreased Bases, Diminished Breath Sounds, Poor Inspiratory Effort (low air volumes) (Lilia SiegelP) Cardiology CV Exam: Regular, Murmur (Lilia Siegel) Gastrointestinal/Abdomen GI Exam: Non-Tender, Bowel Sounds Present, Non-Distended (Lilia Siegel ) Musculoskeletal MS Exam: Normal Tone, Atrophy (Lilia Siegel) Integumentary Skin Exam: Warm, Dry (Lilia Siegel) Extremeties Extremities Exam: No Edema, Pedal Pulses Palpable (Lilia Siegel) Neurologic Neuro Exam: Alert, Awake, Oriented, Speech Clear (Lilia Siegel) Psychiatric Psych Exam: Appropriate Responses (Lilia Siegel) VTE Prophylaxis VTE Prophylaxis Meds: Coumadin (Lilia Siegel) Assessment/Plan Assessment/Plan Vital signs reviewed, pulse rate labile between 57 and 94, BP 91/56 which appears to be his baseline or close to his norm Labs reviewed, PT INR 2.9 Coumadin therapy and assisted per pharmacy, low-dose ASA, check labs in the morning Tremor /asterixis, continue by mouth Keppra Epilepsy according to EEG Episodes of Confusion Acute small right frontal lacunar infarct posteriorly complicated with debility , patient working with PT, will also add OT, patient is very willing to continue rehabilitation when stable for discharge. Discussed options with patient and family Severe mitral stenosis with moderate regurgitation according to echo report, patient currently denies any chest pain, does have low air volumes and some dyspnea with murmur noted respiratory insufficiency, improved, continue O2 therapy , duo nebs Pulmonary edema, improved, continue to monitor with medical management and oxygen. Hypoxemia improved continue to monitor Hypokalemia, resolved End-stage renal disease on dialysis, patient has been on peritoneal dialysis at home for approximately 3 years, appreciate nephrology consult and following Continue to monitor intake and output as well as fluid balance Pulmonary hypertension, medical management Aortic stenosis status post TAVR Nonischemic cardiomyopathy History of Paroxysmal atrial fibrillation Anemia of chronic disease Deconditioning, working with physical therapy and will add OT to the regimen Acute on Chronic debility continues, still has generalized weakness in his upper and lower extremities, was able to stand before this admission but non- ambulatory now. subarachnoid hemorrhage, peripheral neuropathy, cervical and lumbar fusion, Hearing loss, bilateral cataracts, chronic narcotic use, renal transplantation twice, Nonischemic cardiomyopathy,Paroxysmal atrial fibrillation on flecainide, mitral stenosis, RBBB, Orthostatic hypotension on long-term midodrine Discussed with patient and his Discussed with nurse Discussed with Dr. Baltazar, seen on his behalf (Lilia Siegel) Assessment/Plan seen, examined by myself, Dr Baltazar, today Discussed with patient Discussed with nurse Tremor appears to have improved Occupational therapy Physical therapy Discussed with mid level provider The exam, history, and the medical decision-making described in the above note were completed with the assistance of the mid-level provider. I reviewed the findings presented. I attest that I had a [id number] encounter with the patient on the same day, and personally performed and documented my assessment and findings in the medical record. (Vlad Baltazar MD) Lilia Siegel 8, 2017 16:26 Vlad Baltazar MD Sep 07, 2016 17:29
[2016-09-07] MEDS: AZITHROMYCIN 250 MG TAB PO SCH (21:03)
[2016-09-07] MEDS: PANTOPRAZOLE SOD 20 MG DELAYED RELEASE TAB PO SCH (21:03)
[2016-09-08] VITALS (29 sets, daily range): BP systolic 82–112; BP diastolic 51–78; PULSE 60–114; RESP 20–22; TEMP 97.7–98; O2SAT 93–98
[2016-09-08] MEDS: CHLORHEXIDINE GLUCONATE 2 % 1 PACK (2 CLOTHS) TOP SCH (00:52)
[2016-09-08] MEDS: HYDROCORTISONE SOD SUCCINATE 100 MG VIAL IV PUSH SCH ×3 (05:45→22:21)
[2016-09-08] MEDS: INSULIN ASPART SUPPLEMENTAL SCALE SQ SCH ×4 (06:00→22:20)
[2016-09-08 06:34] LABS: HEMATOCRIT 30.5 % (39.0-51.0); MEAN CELL VOLUME 93.1 FL (80.0-100.0); MEAN CORPUSCULAR HEMOGLOBIN 29.9 PG (27.0-34.0); MEAN CORPUSCULAR HGB CONC 32.1 % (32.0-36.0); PLATELET COUNT 275 TH/MM3 (150-450); RED BLOOD COUNT 3.28 MIL/MM3 (4.50-5.90); RED CELL DISTRIBUTION WIDTH 15.2 % (11.6-17.2); REVIEW FLAG FINAL; WHITE BLOOD COUNT 13.6 TH/MM3 (4.0-11.0)
[2016-09-08 06:43] LABS: INTERNATIONAL NORMALIZED RATIO 1.9 RATIO
[2016-09-08 06:48] LABS: BICARBONATE 22.8 MEQ/L (21.0-32.0); POTASSIUM 4.5 MEQ/L (3.5-5.1)
[2016-09-08] MEDS: SEVELAMER CARBONATE 800 MG TAB PO SCH ×3 (08:28→17:04)
[2016-09-08] MEDS: FLECAINIDE ACETATE 100 MG TAB PO SCH ×2 (08:28→22:18)
[2016-09-08] MEDS: GABAPENTIN 100 MG CAP PO SCH ×2 (08:29→22:16)
[2016-09-08] MEDS: MIDODRINE 5 MG TAB PO SCH ×3 (08:29→17:04)
[2016-09-08] MEDS: DOCUSATE SODIUM 50 MG/SENNA 8.6 MG TAB PO SCH ×2 (08:29→21:00)
[2016-09-08] MEDS: CALCITRIOL 0.25 MCG CAP PO SCH (08:29)
[2016-09-08] MEDS: levETIRAcetam 250 MG TAB PO SCH ×2 (08:29→22:17)
[2016-09-08] MEDS: POTASSIUM CHLORIDE 10 MEQ CONTROLLED RELEASE TAB PO SCH ×2 (08:29→22:17)
[2016-09-08] MEDS: VITAMIN B CMPLX/VITC/FOLIC AC CAP PO SCH (08:29)
[2016-09-08] MEDS: SODIUM CHLORIDE 0.9% FLUSH 10 ML FLUSH IV FLUSH SCH ×2 (08:30→22:16)
[2016-09-08] MEDS: [UNRECOGNIZED DRUG - OTHER] TOPICAL SCH (08:30)
[2016-09-08] MEDS: POLYETHYLENE GLYCOL 17 GM PKG PO SCH ×2 (08:30→08:36)
[2016-09-08] MEDS: CHOLECALCIFEROL (VIT D3) 1000 UNIT TAB PO SCH (08:30)
[2016-09-08] MEDS: PSYLLIUM FIBER SF/GF 6 GM POWD PKT PO SCH (08:30)
--- NOTE | 2016-09-08 08:33 | HHI.NPPN ---
Subjective History of Present Illness 65-year-old on PD with congestive heart failure Interval History PD being continued. Weak. Hemodynamically stable. Review of Systems General Constitutional: Fatigue Objective Data Data 09/07/16 09/08/16 19:00 07:00 Intake Total 700 ml 240 ml Output Total 1014 ml Balance -314 ml 240 ml Intake Oral 600 ml 240 ml IV Total 100 ml Output Urine Total 0 ml Peritoneal Fluid 1014 ml # Voids 0 # Bowel Movements 0 Vital Signs Date Time Temp Pulse Resp B/P Pulse Ox O2 Delivery O2 Flow Rate FiO2 09/08/16 07:01 95 09/08/16 06:00 88 09/08/16 05:00 95 09/08/16 04:14 91 09/08/16 03:24 99 09/08/16 03:18 Nasal Cannula 2.00 21 09/08/16 03:00 98.0 95 112/78 93 09/08/16 00:00 60 09/07/16 23:53 96 09/07/16 23:49 98.3 95 92/73 93 09/07/16 23:12 Nasal Cannula 2.00 21 09/07/16 22:00 94 09/07/16 21:59 98.3 92 92/73 93 09/07/16 21:59 Nasal Cannula 2.00 09/07/16 21:00 64 09/07/16 20:00 97 09/07/16 19:00 97 09/07/16 18:01 94 09/07/16 17:48 93 21 09/07/16 17:00 94 09/07/16 16:01 86 09/07/16 15:45 98.0 85 20 100/62 93 09/07/16 15:45 99 Room Air 09/07/16 15:00 85 09/07/16 14:00 100 09/07/16 13:01 94 09/07/16 12:00 84 09/07/16 11:01 99 Room Air 09/07/16 11:01 97.6 57 20 91/56 99 09/07/16 11:00 86 09/07/16 10:59 98 21 09/07/16 10:00 94 09/07/16 09:00 88 09/07/16 08:45 97 Room Air 09/07/16 08:45 97.7 118 20 102/68 97 -: 09/08/16 0541 09/08/16 0541 Physical Exam General Appearance: Well Developed, Comfortable, Pale Eyes Eye Exam: Pupils Equal, Pupils Reactive Ears & Nose Ears & Nose Exam: Nasal Mucosa [place] Throat Throat Exam: Oral Mucosa [place] & Moist Neck Neck Exam: Trachea Midline Pulmonary Resp Exam: Crackles, Decreased Bases, Diminished Breath Sounds, Poor Inspiratory Effort (low air volumes) Cardiology CV Exam: Regular, Murmur Gastrointestinal/Abdomen GI Exam: Non-Tender, Bowel Sounds Present, Non-Distended Musculoskeletal MS Exam: Normal Tone, Atrophy Integumentary Skin Exam: Warm, Dry Extremeties Extremities Exam: No Edema, Pedal Pulses Palpable Neurologic Neuro Exam: Alert, Awake, Oriented, Speech Clear Psychiatric Psych Exam: Appropriate Responses Assessment/Plan Problem List: (1) ESRD (end stage renal disease) on dialysis Plan: Continue PD. Monitor fluid and electrolytes. Labs were reviewed. Hemoglobin is stable. Administer Epogen intermittently. Monitor phosphorus periodically. (2) Congestive heart failure Plan: Patient has T aVR (3) CVA (cerebral vascular accident) Plan: Neurology following. On Keppra for tremors. Luis Austin MD Sep 08, 2016 08:33
--- NOTE | 2016-09-08 12:59 | HHI.PR ---
Subjective Subjective Remarks Resting in bed sitting straight up with head of bed elevated approximately 80 Awake and responsive in room Still very weak and deconditioned, requesting to continue to work with PT , OT added (Lilia Siegel) Review of Systems Constitutional Constitutional: Fatigue, Weakness Constitutional Remarks 10 point ROS done positives noted (Lilia Siegel) Pulmonary Respiratory: Coughing, Shortness of Breath (Lilia Siegel) Cardiology CV: Chest Pain (controlled) (Lilia Siegel) GI/Abdomen GI/Abdominal Exam: Constipation (monitor bowel regimen) (Lilia Siegel) Musculoskeletal MS: Weakness, Stiffness (Lilia Siegel) Neurologic Neurologic Remarks Monitor seizure disorder (Lilia Siegel) Psychiatric Psychiatric: Normal Mood, Anxiety (Lilia Siegel) Vitals/Results Intake & Output 09/07/16 09/07/16 09/08/16 15:00 23:00 07:00 Intake Total 700 ml 240 ml Output Total 1014 ml 0 ml Balance -1014 ml 700 ml 240 ml Intake Oral 600 ml 240 ml IV Total 100 ml Output Urine Total 0 ml Peritoneal Fluid 1014 ml # Voids 0 # Bowel Movements 0 Vital Signs Vital Signs Date Time Temp Pulse Resp B/P Pulse Ox O2 Delivery O2 Flow Rate FiO2 09/08/16 12:01 100 09/08/16 11:45 97.8 108 20 84/57 94 09/08/16 11:45 94 Nasal Cannula 2.00 09/08/16 11:00 96 09/08/16 10:09 98 Nasal Cannula 2.00 09/08/16 10:01 106 09/08/16 09:00 104 09/08/16 08:45 94 Nasal Cannula 2.00 09/08/16 08:45 97.9 114 20 87/62 94 09/08/16 08:00 104 09/08/16 07:01 95 09/08/16 06:00 88 09/08/16 05:00 95 09/08/16 04:14 91 09/08/16 03:24 99 09/08/16 03:18 Nasal Cannula 2.00 21 09/08/16 03:00 98.0 95 112/78 93 09/08/16 00:00 60 09/07/16 23:53 96 09/07/16 23:49 98.3 95 92/73 93 09/07/16 23:12 Nasal Cannula 2.00 21 09/07/16 22:00 94 09/07/16 21:59 98.3 92 92/73 93 09/07/16 21:59 Nasal Cannula 2.00 21 09/07/16 21:00 64 09/07/16 20:00 97 09/07/16 19:00 97 09/07/16 18:01 94 09/07/16 17:48 93 21 09/07/16 17:00 94 09/07/16 16:01 86 09/07/16 15:45 98.0 85 20 100/62 93 09/07/16 15:45 99 Room Air 09/07/16 15:00 85 09/07/16 14:00 100 09/07/16 13:01 94 (Lilia Siegel) CBC/BMP: 09/08/16 0541 09/08/16 0541 Lab Results Laboratory Tests Test 09/08/16 05:41 White Blood Count 13.6 TH/MM3 Red Blood Count 3.28 MIL/MM3 Hemoglobin 9.8 GM/DL Hematocrit 30.5 % Mean Corpuscular Volume 93.1 FL Mean Corpuscular Hemoglobin 29.9 PG Mean Corpuscular Hemoglobin 32.1 % Concent Red Cell Distribution Width 15.2 % Platelet Count 275 TH/MM3 Mean Platelet Volume 8.1 FL Prothrombin Time 22.0 SEC Prothromb Time International 1.9 RATIO Ratio Sodium Level 132 MEQ/L Potassium Level 4.5 MEQ/L Chloride Level 95 MEQ/L Carbon Dioxide Level 22.8 MEQ/L Anion Gap 14 MEQ/L Blood Urea Nitrogen 75 MG/DL Creatinine 6.83 MG/DL Estimat Glomerular Filtration 8 ML/MIN Rate Random Glucose 120 MG/DL Calcium Level 7.6 MG/DL (Lilia Siegel) Physical Exam General General Appearance: Well Developed, Comfortable, Pale (Lilia Siegel) Eyes Eye Exam: Pupils Equal, Pupils Reactive (Lilia Siegel) Ears & Nose Ears & Nose Exam: Nasal Mucosa [place] (Christal,Lilia M. [employer]BILE UI DEVELOPER) Throat Throat Exam: Oral Mucosa [place] & Moist ([place],Susan M. MOBILE UI DEVELOPER) Neck Neck Exam: Trachea Midline (Lilia Siegel M. [employer]BILE UI DEVELOPER) Pulmonary Resp Exam: Crackles, Decreased Bases, Diminished Breath Sounds, Poor Inspiratory Effort (low air volumes) (Lilia Siegel M. [employer]BILE UI DEVELOPER) Cardiology CV Exam: Regular, Murmur ([place],Susan M. MOBILE UI DEVELOPER) Gastrointestinal/Abdomen GI Exam: Non-Tender, Bowel Sounds Present, Non-Distended (Christal,Susan M. [employer]BILE UI DEVELOPER ) Musculoskeletal MS Exam: Normal Tone, Atrophy (Christal,Susan M. [employer]BILE UI DEVELOPER) Integumentary Skin Exam: Warm, Dry (Lilia Siegel M. [employer]BILE UI DEVELOPER) Extremeties Extremities Exam: No Edema, Pedal Pulses Palpable (Lilia Siegel M. [employer]BI[employer] UI DEVELOPER) Neurologic Neuro Exam: Alert, Awake, Oriented, Speech Clear (Lilia Siegel M. [employer]BI[employer] UI DEVELOPER) Psychiatric Psych Exam: Appropriate Responses (Lilia Siegel. MOBILE UI DEVELOPER) VTE Prophylaxis VTE Prophylaxis Meds: Coumadin (Lilia Siegel M. [employer]BI[employer] UI DEVELOPER) Assessment/Plan Assessment/Plan Vital signs reviewed, mild tachycardia 106, BP trends low normals systolic around 88-90. states medicine coming through the mail that had been ordered for him as an outpatient to increase his blood pressure. Will pickup and bring to the hospital tomorrow Labs reviewed, PT INR 1.9, leukocytosis 13.6 today mild increase, anemia stable at 9.8 Complaints of heartburn today, GERD, increase Protonix dose to twice a day and added Mylanta when necessary Tremor /asterixis, continue by mouth Keppra, concerned that low-dose Keppra is causing patient to be drowsy, patient has been drowsy and dozing during the daytime awake at night Epilepsy according to EEG Episodes of Confusion Acute small right frontal lacunar infarct posteriorly complicated with debility , patient working with PT, will also add OT, patient is very willing to continue rehabilitation when stable for discharge. Discussed options with patient and family Severe mitral stenosis with moderate regurgitation according to echo report, patient currently denies any chest pain, does have low air volumes and some dyspnea with murmur noted. Be and monitored per cardiology, will continue to monitor on an outpatient basis respiratory insufficiency, continue O2 therapy , duo nebs, low volumes and mild shortness of breath noted this a.m., patient is fatigued today shortness of breath ,has increased over the past couple of days with fatigue, Will recheck chest x-ray for any acute changes, known cardiomegaly Pulmonary edema, improved, continue to monitor with medical management and oxygen. Hypoxemia improved continue to monitor Hypokalemia, resolved End-stage renal disease on dialysis, patient has been on peritoneal dialysis at home for approximately 3 years, appreciate nephrology consult and following Continue to monitor intake and output as well as fluid balance, peritoneal dialysis done per staff today, currently patient is unable to do himself anymore Pulmonary hypertension, medical management Aortic stenosis status post TAVR Nonischemic cardiomyopathy History of Paroxysmal atrial fibrillation Anemia of chronic disease Deconditioning, working with physical therapy and will add OT to the regimen Acute on Chronic debility continues, still has generalized weakness in his upper and lower extremities, was able to stand before this admission but non- ambulatory now. Patient currently is unable to stand, is getting up in chair with maximum assist daily Multi comorbidities affecting patient's generalized recovery and health , subarachnoid hemorrhage, peripheral neuropathy, cervical and lumbar fusion, Hearing loss, bilateral cataracts, chronic narcotic use, renal transplantation twice, Nonischemic cardiomyopathy,Paroxysmal atrial fibrillation on flecainide, mitral stenosis, RBBB, Orthostatic hypotension on long-term midodrine Discussed with patient and his , dependent on patient's tolerance and recovery to his previous state of health, patient states he is tired, persistence is to fix everything, might benefit from palliative care in the future Discussed with nurse Discussed with Dr. Baltazar, seen on his behalf (Lilia Siegel) Assessment/Plan seen, examined by myself, Dr Baltazar, today 09/08/16 Discussed with patient Transfer to telemetry Discussed with mid level provider The exam, history, and the medical decision-making described in the above note were completed with the assistance of the mid-level provider. I reviewed the findings presented. I attest that I had a [id number] encounter with the patient on the same day, and personally performed and documented my assessment and findings in the medical record. (Vlad Baltazar MD) Lilia Siegel Sep 08, 2016 12:59 Vlad Baltazar MD Sep 08, 2016 15:41
[2016-09-08] MEDS ORDERED: ALUMINUM/MAGNESIUM/SIMETH 30 ML CUP PO PRN (14:00)
--- NOTE | 2016-09-08 14:27 | RADRPT ---
EXAM DATE/TIME: 09/08/2016 14:01 [facility] COMPARISON: CHEST SINGLE AP, September 02, 2016, 4:55. INDICATIONS : Congestion MEDICAL HISTORY : Congestive heart failure. Chronic obstructive pulmonary disease. Deep venous thrombosis. GERD Gou t SURGICAL HISTORY : A-V [place]ula ENCOUNTER: Subsequent ACUITY: 1 week PAIN SCORE: 0/10 LOCATION: Bilateral chest FINDINGS: A single view of the chest demonstrates the lungs to be symmetrically aerated without evidence of mas s, infiltrate or effusion. Heart size is prominent but well compensated. Patient appears to have exte nsive calcification of the mitral valve annulus with a TAVR device traversing the expected location o f the aortic valve. Osseous structures are intact. CONCLUSION: 1. Compensated cardiomegaly with no acute infiltrate. 2. Extensive calcification of the mitral valve annulus. TAVR. Richard Ray MD on September 08, 2016 at 14:24 Board Certified Radiologist. This report was verified electronically.
[2016-09-08] MEDS ORDERED: WARFARIN SOD 5 MG TAB PO ONE (16:00)
[2016-09-08] MEDS: AZITHROMYCIN 250 MG TAB PO SCH (22:16)
[2016-09-08] MEDS: PANTOPRAZOLE SOD 20 MG DELAYED RELEASE TAB PO SCH (22:16)
[2016-09-08] MEDS: DRONABINOL 2.5 MG CAP PO SCH (22:17)
[2016-09-09] VITALS (13 sets, daily range): BP systolic 73–96; BP diastolic 55–61; PULSE 53–100; RESP 16–22; TEMP 97.6–99.5; O2SAT 93–99
[2016-09-09] MEDS: CHLORHEXIDINE GLUCONATE 2 % 1 PACK (2 CLOTHS) TOP SCH (04:00)
[2016-09-09] MEDS: HYDROCORTISONE SOD SUCCINATE 100 MG VIAL IV PUSH SCH ×3 (06:00→21:16)
[2016-09-09] MEDS: INSULIN ASPART SUPPLEMENTAL SCALE SQ SCH ×4 (06:28→21:00)
[2016-09-09 06:54] LABS: INTERNATIONAL NORMALIZED RATIO 1.6 RATIO; PROTHROMBIN TIME - PATIENT 17.7 SEC (9.8-11.6)
[2016-09-09] MEDS: CALCITRIOL 0.25 MCG CAP PO SCH (07:52)
[2016-09-09] MEDS: DOCUSATE SODIUM 50 MG/SENNA 8.6 MG TAB PO SCH ×2 (07:52→21:00)
[2016-09-09] MEDS: levETIRAcetam 250 MG TAB PO SCH ×2 (07:53→21:18)
[2016-09-09] MEDS: SEVELAMER CARBONATE 800 MG TAB PO SCH ×3 (07:53→17:00)
[2016-09-09] MEDS: PSYLLIUM FIBER SF/GF 6 GM POWD PKT PO SCH (07:53)
[2016-09-09] MEDS: GABAPENTIN 100 MG CAP PO SCH ×2 (07:53→21:19)
[2016-09-09] MEDS: VITAMIN B CMPLX/VITC/FOLIC AC CAP PO SCH (07:54)
[2016-09-09] MEDS: PANTOPRAZOLE SOD 20 MG DELAYED RELEASE TAB PO SCH ×2 (07:54→21:18)
[2016-09-09] MEDS: CHOLECALCIFEROL (VIT D3) 1000 UNIT TAB PO SCH (07:54)
[2016-09-09] MEDS: POTASSIUM CHLORIDE 10 MEQ CONTROLLED RELEASE TAB PO SCH ×2 (07:54→21:18)
[2016-09-09] MEDS: FLECAINIDE ACETATE 100 MG TAB PO SCH ×2 (07:54→21:17)
[2016-09-09] MEDS: [UNRECOGNIZED DRUG - OTHER] TOPICAL SCH (07:54)
[2016-09-09] MEDS: SODIUM CHLORIDE 0.9% FLUSH 10 ML FLUSH IV FLUSH SCH ×2 (07:55→21:19)
[2016-09-09] MEDS: MIDODRINE 5 MG TAB PO SCH ×3 (07:55→17:24)
[2016-09-09] MEDS: CEFEPIME INJ 2,000 MG in SODIUM CHLORIDE 0.9% INJ 100 ML IV SCH (08:04)
[2016-09-09] MEDS: DRONABINOL 2.5 MG CAP PO SCH ×2 (08:13→21:17)
--- NOTE | 2016-09-09 08:43 | PD.CARD.PN ---
Subjective Subjective Remarks The patient denies CP. Has some SOB. Tried working with PT/OT. Feels weak compared to baseline. INR low today. (Shaylee Daniels) Objective Medications Current Medications Medications (Trade) Dose Ordered Sig/Katina Route Start Time Stop Time Status Last Admin (Rocaltrol) 0.25 mcg DAILY PO 09/01/16 09:00 09/09/16 07:52 (Vitamin D3) 2,000 units DAILY PO 09/01/16 09:00 09/09/16 07:54 (Tambocor) 75 mg BID PO 09/01/16 00:30 09/09/16 07:54 (Neurontin) 100 mg BID PO 09/01/16 00:30 09/09/16 07:53 (Coumadin) 2.5 mg SuTuThSa@16 PO 09/01/16 16:00 Hold 09/03/16 16:00 (Coumadin) 5 mg MoWeFr@16 PO 09/02/16 16:00 Hold 09/04/16 18:03 (Nephrocaps) 1 cap DAILY PO 09/01/16 09:00 09/09/16 07:54 (Proamatine) 10 mg TID PO 09/01/16 09:00 09/09/16 07:55 (Pill Splitter) 1 ea UNSCH PRN OTHER 09/01/16 01:00 09/01/16 11:12 (NS Flush) 2 ml UNSCH PRN IV FLUSH 09/01/16 01:00 (NS Flush) 2 ml BID IV FLUSH 09/01/16 09:00 09/09/16 07:55 (Tylenol) 650 mg Q6H PRN PO 09/01/16 01:00 09/01/16 21:43 (Cohutta 5-325 Mg) 1 tab Q4H PRN PO 09/01/16 01:00 09/02/16 06:46 (Zofran Inj) 4 mg Q6H PRN IV 09/01/16 01:00 Miscellaneous Information 1 Q361D XX 09/01/16 01:00 09/01/16 01:00 (Chlorhexidine 2% Cloth) Taper DAILY@04 TOP 09/01/16 04:00 08/28/17 03:59 09/01/16 02:25 (Chlorhexidine 2% Cloth) 3 pack UNSCH PRN TOP 09/01/16 01:00 (Leah-Colace) 1 tab BID PO 09/01/16 09:00 09/09/16 07:52 (Milk Of Magnesia Liq) 30 ml Q12H PRN PO 09/01/16 01:00 (Senokot) 17.2 mg Q12H PRN PO 09/01/16 01:00 (Dulcolax Supp) 10 mg DAILY PRN RECTAL 09/01/16 01:00 (Lactulose Liq) 30 ml DAILY PRN PO 09/01/16 01:00 (D50w (Vial) Inj) 50 ml UNSCH PRN IV 09/01/16 02:00 (Glucagon Inj) 1 mg UNSCH PRN OTHER 09/01/16 02:00 (Renvela) 2,400 mg TIDAC PO 09/01/16 17:00 09/09/16 07:53 (Cepacol Extra Katty (Sugar Free)) 1 lozenge Q4H PRN BUCCAL 09/02/16 00:45 09/05/16 17:04 Hydrocortisone Sodium Succinate 50 mg 50 mg Q8HR IV PUSH 09/03/16 14:00 09/09/16 06:00 (Coumadin Consult Pharmacy) 0 ml @ 0 mls/hr UNSCH OTHER 09/04/16 10:30 (Tessalon) 200 mg TID PRN PO 09/04/16 14:00 09/05/16 01:05 (Metamucil Smooth Texture Sf/ Gf Pkt) 1 pkt DAILY PO 09/04/16 20:00 09/09/16 07:53 (Aspirin Chew) 81 mg DAILY CHEW 09/06/16 09:00 Hold (Keppra) 250 mg Q12HR PO 09/05/16 21:00 09/09/16 07:53 (Zithromax) 500 mg Q24H PO 09/06/16 20:00 09/08/16 22:16 (KCl) 20 meq Q12HR PO 09/06/16 11:30 09/09/16 07:54 Patient Own Medication PT OWN MED: SASHA... DAILY TOPICAL 09/07/16 09:00 09/08/16 08:30 (Protonix) 20 mg BID PO 09/08/16 21:00 09/09/16 07:54 (Mag-Al Plus Susp Liq) 30 ml Q6H PRN PO 09/08/16 14:00 (Marinol) 2.5 mg BID PO 09/08/16 21:00 09/09/16 08:13 Vital Signs / I&O Vital Signs Date Time Temp Pulse Resp B/P Pulse Ox O2 Delivery O2 Flow Rate FiO2 09/09/16 01:00 96 09/09/16 00:02 96 Nasal Cannula 2.00 09/09/16 00:00 88 09/09/16 00:00 97.6 78 22 96/57 96 09/08/16 23:00 71 09/08/16 22:00 88 09/08/16 21:00 96 09/08/16 20:30 97 Nasal Cannula 2.00 09/08/16 20:30 97.7 78 22 96/51 97 09/08/16 20:00 98 09/08/16 19:00 98 09/08/16 18:01 106 09/08/16 17:33 94 Nasal Cannula 2.00 09/08/16 17:00 108 09/08/16 16:00 98 09/08/16 15:01 97.7 101 22 82/54 98 09/08/16 15:01 98 Nasal Cannula 2.00 09/08/16 15:00 92 09/08/16 14:01 90 09/08/16 13:00 90 09/08/16 12:01 100 09/08/16 11:45 97.8 108 20 84/57 94 09/08/16 11:45 94 Nasal Cannula 2.00 09/08/16 11:00 96 09/08/16 10:09 98 Nasal Cannula 2.00 09/08/16 10:01 106 09/08/16 09:00 104 09/08/16 08:45 94 Nasal Cannula 2.00 09/08/16 08:45 97.9 114 20 87/62 94 I/O 09/08/16 09/08/16 09/08/16 09/09/16 09/09/16 09/09/16 07:00 15:00 23:00 07:00 15:00 23:00 Intake Total 240 ml 720 ml Output Total 878 ml Balance 240 ml -878 ml 720 ml Intake Oral 240 ml 720 ml Peritoneal Fluid 878 ml # Voids 0 # Bowel Movements 1 Physical Exam GENERAL: middle aged male in CVSDU SKIN: Warm and dry. HEAD: Normocephalic. EYES: No scleral icterus. No injection or drainage. NECK: Supple, trachea midline.no JVD CARDIOVASCULAR: Irregularly irreg, mumur GASTROINTESTINAL: Abdomen soft, non-tender, nondistended. PD catheter MUSCULOSKELETAL: No cyanosis, no edema BACK: Nontender without obvious deformity. No CVA tenderness. Laboratory Laboratory Tests Test 09/09/16 05:55 Prothrombin Time 17.7 SEC Prothromb Time International 1.6 RATIO Ratio Imaging Last 72 hours Impressions Chest X-Ray 09/08/16 0000 Signed Impressions: Service Date/Time: Thursday, September 08, 2016 14:01 - CONCLUSION: 1. Compensated cardiomegaly with no acute infiltrate. 2. Extensive calcification of the mitral valve annulus. TAVR. Richard Ray MD (Shaylee Daniels) Assessment and Plan Assessment and Plan ASSESSMENT Chest pain with slightly elevated troponins. Chest pain and elevated troponin due to pulmonary edema and fluid overload. Atrial fibrillation on coumadin- INR low ASHD, heart cath 01/2014 TAVR 03/2014 Severe MS, Mod MR, RVSP 54, EF 50-55% Echo 09/04/2016 Hypotension- on midodrine. Recently Rx Northera by [employer] ESRD followed by Dr. Hart. Abnormal EEG suspicious of epilepsy CVA- new acute lacunar stroke PLAN We will continue conservative management for severe mitral stenosis. Will consider evaluation for surgery once the patient is more stable. We will address this outpatient. Diuresis/dialysis per nephrology Pharmacy to dose coumadin. INR 1.6 today. Hold parameters for ASA for INR > 3. Patient has a history of non-traumatic ICH Ok to transfer patient to med-surg Assessment and plan discussed with Dr. Castro (Shaylee Daniels) Assessment and Plan The exam, history, and the medical decision-making described in the above note were completed with the assistance of the mid-level provider. I reviewed and agree with the findings presented. I attest that I had a [id number] encounter with the patient on the same day, and personally performed and documented my assessment and findings in the medical record. Will try Northera, given furthur 500 cc NSaline awake and alert. (Guillermo Castro MD) Shaylee Daniels Sep 09, 2016 08:43 Guillermo Castro MD Sep 09, 2016 14:13
--- NOTE | 2016-09-09 09:46 | HHI.PR ---
Subjective Subjective Remarks Resting in bed, head of bed elevated as well as knees most of the time States he did rest better last night Awake and responsive BP running at his baseline in the 90 systolic (Lilia Siegel) Review of Systems Constitutional Constitutional: Fatigue, Weakness Constitutional Remarks 10 point ROS done positives noted (Lilia Siegel) Pulmonary Respiratory: Coughing, Shortness of Breath (Lilia Siegel) Cardiology CV: Chest Pain (controlled) (Lilia Siegel) GI/Abdomen GI/Abdominal Exam: Constipation (monitor bowel regimen) (Lilia Siegel) Musculoskeletal MS: Weakness, Stiffness (Lilia Siegel) Neurologic Neurologic Remarks Monitor seizure disorder (Lilia Siegel) Psychiatric Psychiatric: Normal Mood, Anxiety (Lilia Siegel) Vitals/Results Intake & Output 09/08/16 09/08/16 09/09/16 15:00 23:00 07:00 Intake Total 720 ml Output Total 878 ml Balance -878 ml 720 ml Intake Oral 720 ml Peritoneal Fluid 878 ml # Voids 0 # Bowel Movements 1 Vital Signs Vital Signs Date Time Temp Pulse Resp B/P Pulse Ox O2 Delivery O2 Flow Rate FiO2 09/09/16 01:00 96 09/09/16 00:02 96 Nasal Cannula 2.00 09/09/16 00:00 88 09/09/16 00:00 97.6 78 22 96/57 96 09/08/16 23:00 71 09/08/16 22:00 88 09/08/16 21:00 96 09/08/16 20:30 97 Nasal Cannula 2.00 09/08/16 20:30 97.7 78 22 96/51 97 09/08/16 20:00 98 09/08/16 19:00 98 09/08/16 18:01 106 09/08/16 17:33 94 Nasal Cannula 2.00 09/08/16 17:00 108 09/08/16 16:00 98 09/08/16 15:01 97.7 101 22 82/54 98 09/08/16 15:01 98 Nasal Cannula 2.00 09/08/16 15:00 92 09/08/16 14:01 90 09/08/16 13:00 90 09/08/16 12:01 100 09/08/16 11:45 97.8 108 20 84/57 94 09/08/16 11:45 94 Nasal Cannula 2.00 09/08/16 11:00 96 09/08/16 10:09 98 Nasal Cannula 2.00 09/08/16 10:01 106 (Lilia Siegel) CBC/BMP: 09/08/16 0541 09/08/16 0541 Lab Results Laboratory Tests Test 09/09/16 05:55 Prothrombin Time 17.7 SEC Prothromb Time International 1.6 RATIO Ratio Current Medications Administered Medications Medications (Trade) Dose Ordered Sig/Katina Route PRN Reason Start Time Stop Time Status Last Admin Dose Admin Calcitriol (Rocaltrol) 0.25 mcg DAILY PO 09/01/16 09:00 09/09/16 07:52 Cholecalciferol (Vitamin D3) 2,000 units DAILY PO 09/01/16 09:00 09/09/16 07:54 Flecainide Acetate (Tambocor) 75 mg BID PO 09/01/16 00:30 09/09/16 07:54 Gabapentin (Neurontin) 100 mg BID PO 09/01/16 00:30 09/09/16 07:53 Warfarin Sodium (Coumadin) 2.5 mg SuTuThSa@16 PO 09/01/16 16:00 Hold 09/03/16 16:00 Warfarin Sodium (Coumadin) 5 mg MoWeFr@16 PO 09/02/16 16:00 Hold 09/04/16 18:03 Vitamin B Complex/ Vit C/Folic Acid (Nephrocaps) 1 cap DAILY PO 09/01/16 09:00 09/09/16 07:54 Midodrine (Proamatine) 10 mg TID PO 09/01/16 09:00 09/09/16 07:55 Miscellaneous (Pill Splitter) 1 ea UNSCH PRN OTHER SEE LABEL COMMENTS 09/01/16 01:00 09/01/16 11:12 Sodium Chloride (NS Flush) 2 ml BID IV FLUSH 09/01/16 09:00 09/09/16 07:55 Acetaminophen (Tylenol) 650 mg Q6H PRN PO FEVER >100F 09/01/16 01:00 09/01/16 21:43 Acetaminophen/ Hydrocodone Bitart ([place] 5-325 Mg) 1 tab Q4H PRN PO PAIN 1-10 09/01/16 01:00 09/02/16 06:46 Miscellaneous Information 1 Q361D XX 09/01/16 01:00 09/01/16 01:00 Chlorhexidine Gluconate (Chlorhexidine 2% Cloth) Taper DAILY@04 TOP 09/01/16 04:00 08/28/17 03:59 09/01/16 02:25 Senna/Docusate Sodium (Leah-Colace) 1 tab BID PO 09/01/16 09:00 09/09/16 07:52 Sevelamer Carbonate (Renvela) 2,400 mg TIDAC PO 09/01/16 17:00 09/09/16 07:53 Benzocaine/Menthol (Cepacol Extra Katty (Sugar Free)) 1 lozenge Q4H PRN BUCCAL SORE THROAT 09/02/16 00:45 09/05/16 17:04 Hydrocortisone Sodium Succinate (SoluCORTEF INJ) 50 mg Q8HR IV PUSH 09/03/16 14:00 09/09/16 06:00 Benzonatate (Tessalon) 200 mg TID PRN PO cough 09/04/16 14:00 09/05/16 01:05 Psyllium Hydrophilic Mucilloid (Metamucil Smooth Texture Sf/ Gf Pkt) 1 pkt DAILY PO 09/04/16 20:00 09/09/16 07:53 Levetriacetam (Keppra) 250 mg Q12HR PO 09/05/16 21:00 09/09/16 07:53 Azithromycin (Zithromax) 500 mg Q24H PO 09/06/16 20:00 09/08/16 22:16 Potassium Chloride (KCl) 20 meq Q12HR PO 09/06/16 11:30 09/09/16 07:54 Patient Own Medication PT OWN MED: SASHA... DAILY TOPICAL 09/07/16 09:00 09/08/16 08:30 Pantoprazole Sodium (Protonix) 20 mg BID PO 09/08/16 21:00 09/09/16 07:54 Dronabinol (Marinol) 2.5 mg BID PO 09/08/16 21:00 09/09/16 08:13 (Lilia SiegelP) Physical Exam General General Appearance: Well Developed, Comfortable, Pale (Lilia SiegelP) Eyes Eye Exam: Pupils Equal, Pupils Reactive (Lilia Siegel WEAVER APPRENTICE) Ears & Nose Ears & Nose Exam: Nasal Mucosa Nectar (iLlia Siegel WEAVER APPRENTICE) Throat Throat Exam: Oral Mucosa Nectar & Moist (Lilia Siegel WEAVER APPRENTICE) Neck Neck Exam: Trachea Midline (Lilia Siegel WEAVER APPRENTICE) Pulmonary Resp Exam: Crackles, Decreased Bases, Diminished Breath Sounds, Poor Inspiratory Effort (low air volumes) (Liila Siegel WEAVER APPRENTICE) Cardiology CV Exam: Regular, Murmur (Lilia Siegel WEAVER APPRENTICE) Gastrointestinal/Abdomen GI Exam: Non-Tender, Bowel Sounds Present, Non-Distended (Lilia SiegelP ) Musculoskeletal MS Exam: Normal Tone, Atrophy (Lilia SiegelP) Integumentary Skin Exam: Warm, Dry (Lilia SiegelP) Extremeties Extremities Exam: No Edema, Pedal Pulses Palpable (Lilia SiegelP) Neurologic Neuro Exam: Alert, Awake, Oriented, Speech Clear (Lilia Siegel WEAVER APPRENTICE) Psychiatric Psych Exam: Appropriate Responses (Lilia Siegel) VTE Prophylaxis VTE Prophylaxis Meds: Coumadin (Lilia Siegel) Assessment/Plan Assessment/Plan Assessment/Plan Vital signs reviewed, , BP trends low normals currently 95/64. Was called last night for his BP in the 80s, but when rechecked systolic was 103. Will have staff check manual pressures on him if needed for very high or low trends. Patient is asymptomatic with any acute blood pressure changes states medicine coming through the mail that had been ordered for him as an outpatient to increase his blood pressure. Should have that medication today Labs ordered for the a.m. Tremor /asterixis, continue by mouth Keppra low-dose, seems to be helping his upper extremity tremors Epilepsy according to EEG Episodes of Confusion, alert and cooperative now Acute small right frontal lacunar infarct posteriorly complicated with debility , patient working with PT, will also add OT, patient is very willing to continue rehabilitation when stable for discharge. Discussed options with patient and family Severe mitral stenosis with moderate regurgitation according to echo report, patient currently denies any chest pain, does have low air volumes and some dyspnea with murmur noted. Be and monitored per cardiology, will continue to monitor on an outpatient basis respiratory insufficiency, continue O2 therapy , duo nebs, low volumes and mild shortness of breath which appears to be part of his baseline Pulmonary edema, improved, continue to monitor with medical management and oxygen. Hypoxemia improved continue to monitor Hypokalemia, resolved End-stage renal disease on dialysis, patient has been on peritoneal dialysis at home for approximately 3 years, appreciate nephrology consult and following Staff is now doing his peritoneal dialysis daily. Pulmonary hypertension, medical management Aortic stenosis status post TAVR Nonischemic cardiomyopathy History of Paroxysmal atrial fibrillation Anemia of chronic disease Deconditioning, working with physical therapy and will add OT to the regimen. Saskia and today to evaluate patient for acute rehabilitation possibly may accept him today or tomorrow Acute on Chronic debility continues, still has generalized weakness in his upper and lower extremities, was able to stand before this admission but non- ambulatory now. Patient getting up in the chair, but still very deconditioned and debilitated Multi comorbidities affecting patient's generalized recovery and health , subarachnoid hemorrhage, peripheral neuropathy, cervical and lumbar fusion, Hearing loss, bilateral cataracts, chronic narcotic use, renal transplantation twice, Nonischemic cardiomyopathy,Paroxysmal atrial fibrillation on flecainide, mitral stenosis, RBBB, Orthostatic hypotension on long-term midodrine Discussed with patient his living well and wishes, patient currently wants to continue to be full aggressive care for code, Will except ventilation if needed but does not want to be maintained for any length of time if he has no chance of recovery. Discharge planning possible acute rehabilitation, will work with the rehabilitation team recommendations Discussed with nurse Discussed with Dr. Baltazar, seen on his behalf ( total time 45 minutes Call received approximately 11 AM, patient had dysrhythmia, nurse states probable V. tach wide QRS complex, acutely hypotension with systolic in the 70s , patient felt symptomatic and lightheaded, was up in chair Placed back in bed, fluid bolus on, patient to be transitioned to intensive care setting, Dr. Baltazar called for follow-up Instructed nurse to also call cardiology for their input (Lilia Siegel) Assessment/Plan seen, examined by myself, Dr Baltazar, today 09/09/16 at 11:15 AM Discussed with patient He had an episode of lightheadedness systolic blood pressure in the 60s and wide -complex tachycardia, This occurred after peritoneal dialysis completed, occurred from a sitting position, He also mentioned some chest pressure during the episode, He was transferred to ICU, Alert and oriented at this time without symptoms, He was started on normal saline 25 g of IV albumin ordered CK 3 Troponin 3 Stat EKG Get his sales analytics manager to see him Consult education program associate Discussed with mid level provider The exam, history, and the medical decision-making described in the above note were completed with the assistance of the mid-level provider. I reviewed the findings presented. I attest that I had a [id number] encounter with the patient on the same day, and personally performed and documented my assessment and findings in the medical record. Critical condition over 40 minutes (Vlad Baltazar MD) Lilia Siegel Sep 09, 2016 09:46 Vlad Baltazar MD Sep 09, 2016 11:25
[2016-09-09] MEDS ORDERED: SODIUM CHLOR 0.9% 1000 ML INJ 1,000 ML IV ONE (11:15)
[2016-09-09] MEDS ORDERED: WARFARIN SOD 5 MG TAB PO ONE (11:30)
[2016-09-09] MEDS ORDERED: ALBUMIN HUMAN 25% 25 GM/100 ML BAGP IV ONE (12:30)
[2016-09-09 12:55] LABS: BICARBONATE 23.3 MEQ/L (21.0-32.0); CALCIUM-PROTEIN CORRECTED 7.6 MG/DL (8.5-10.1); MAGNESIUM 1.9 MG/DL (1.5-2.5); TOTAL BILIRUBIN ADULT 0.4 MG/DL (0.2-1.0)
[2016-09-09] MEDS ORDERED: FLUDROCORTISONE ACETATE 0.1 MG TAB PO SCH (13:00)
[2016-09-09 13:03] LABS: POTASSIUM 5.8 MEQ/L (3.5-5.1)
[2016-09-09] MEDS: ASPIRIN 81 MG CHEW TAB CHEW SCH (13:13)
[2016-09-09 13:43] LABS: AUTOMATED NEUTROPHIL # 12.4 TH/MM3 (1.8-7.7); BASOPHIL % 0.2 % (0.0-2.0); EOSINOPHIL % 0.1 % (0.0-4.0); HEMATOCRIT 28.2 % (39.0-51.0); LYMPH % 3.6 % (9.0-44.0); LYMPHOCYTE # 0.5 TH/MM3 (1.0-4.8); MEAN CELL VOLUME 94.1 FL (80.0-100.0); MEAN CORPUSCULAR HEMOGLOBIN 29.9 PG (27.0-34.0); MEAN CORPUSCULAR HGB CONC 31.8 % (32.0-36.0); MONO % 5.2 % (0.0-8.0); NEUT % 90.9 % (16.0-70.0); PLATELET COUNT 277 TH/MM3 (150-450); RED BLOOD COUNT 2.99 MIL/MM3 (4.50-5.90); RED CELL DISTRIBUTION WIDTH 15.3 % (11.6-17.2); WHITE BLOOD COUNT 13.6 TH/MM3 (4.0-11.0)
[2016-09-09 13:45] LABS: HEMO FLAGS AUTO DIFF
[2016-09-09 14:21] LABS: EOSINOPHILS 1 % (0-4); METAMYELOCYTES 1 % (0-1); MYELOCYTES 2 % (0-0); NEUTROPHIL # MANUAL DIFF 13.3 TH/MM3 (1.8-7.7); POLYS (SEG NEUTROPHILS) 95 % (16-70); SCAN/DIFF FINAL DIFF MANUAL; WBC DIFF SAMPLE 100
--- NOTE | 2016-09-09 14:32 | HHI.NPPN ---
Subjective History of Present Illness 65-year-old on PD with congestive heart failure Review of Systems General Constitutional: Fatigue Objective Data Data 09/08/16 09/09/16 19:00 07:00 Intake Total 720 ml Output Total 878 ml Balance -158 ml Intake Oral 720 ml Peritoneal Fluid 878 ml # Voids 0 # Bowel Movements 1 Vital Signs Date Time Temp Pulse Resp B/P Pulse Ox O2 Delivery O2 Flow Rate FiO2 09/09/16 14:00 99 Nasal Cannula 2.00 09/09/16 12:00 74 09/09/16 11:20 100 09/09/16 11:20 100 09/09/16 11:20 97.6 78 22 96/57 96 09/09/16 11:20 99 Nasal Cannula 4.00 09/09/16 09:59 96 Nasal Cannula 2.00 09/09/16 08:00 90 09/09/16 07:00 93 09/09/16 01:00 96 09/09/16 00:02 96 Nasal Cannula 2.00 09/09/16 00:00 88 09/09/16 00:00 97.6 78 22 96/57 96 09/08/16 23:00 71 09/08/16 22:00 88 09/08/16 21:00 96 09/08/16 20:30 97 Nasal Cannula 2.00 09/08/16 20:30 97.7 78 22 96/51 97 09/08/16 20:00 98 09/08/16 19:00 98 09/08/16 18:01 106 09/08/16 17:33 94 Nasal Cannula 2.00 09/08/16 17:00 108 09/08/16 16:00 98 09/08/16 15:01 97.7 101 22 82/54 98 09/08/16 15:01 98 Nasal Cannula 2.00 09/08/16 15:00 92 -: 09/09/16 1200 09/09/16 1200 Physical Exam General Appearance: Well Developed, Comfortable, Pale Eyes Eye Exam: Pupils Equal, Pupils Reactive Ears & Nose Ears & Nose Exam: Nasal Mucosa Mcloud Throat Throat Exam: Oral Mucosa Mcloud & Moist Neck Neck Exam: Trachea Midline Pulmonary Resp Exam: Crackles, Decreased Bases, Diminished Breath Sounds, Poor Inspiratory Effort (low air volumes) Cardiology CV Exam: Regular, Murmur Gastrointestinal/Abdomen GI Exam: Non-Tender, Bowel Sounds Present, Non-Distended Musculoskeletal MS Exam: Normal Tone, Atrophy Integumentary Skin Exam: Warm, Dry Extremeties Extremities Exam: No Edema, Pedal Pulses Palpable Neurologic Neuro Exam: Alert, Awake, Oriented, Speech Clear Neuro Remarks tremors Psychiatric Psych Exam: Appropriate Responses Assessment/Plan Problem List: (1) ESRD (end stage renal disease) on dialysis Plan: Continue PD. Monitor fluid and electrolytes. Labs were reviewed. BP Low will stop Florinef as not working as out patient and family concern about it K 5.8 treat with PD tonight and follow Use 1.5% Hemoglobin is stable. Administer Epogen intermittently. Monitor phosphorus periodically. (2) Congestive heart failure Plan: Patient has T aVR (3) CVA (cerebral vascular accident) Plan: Neurology following. On Keppra for tremors. Zachary Fisher MD Sep 09, 2016 14:32
[2016-09-09] MEDS ORDERED: SODIUM CHLORID 0.9% 500 ML INJ 500 ML IV ONE (15:30)
[2016-09-09] MEDS: NORTHERA PO SCH (17:24)
[2016-09-09] MEDS: WARFARIN SOD 5 MG TAB PO SCH (17:25)
--- NOTE | 2016-09-09 20:22 | HHI.CCPN ---
Subjective Remarks/Hospital Course 65-year-old male with past medical history of ESRD. He has undergone renal transplant in the past in 1985 and 1989, has been on intermittent PD for last 3 years. Does 16 hours PD nightly starting at 5 pm. He also has h/o CHF ( nonischemic), h/o aortic stenosis s/p TAVR 03/2014, moderate mitral stenosis, HLD, COPD, A fib on anticoagulation with warfarin, DVT, GERD, peripheral neuropathy, sacral decubitus ulcer. He presented to [facility] emergency department today after he developed chest pain this morning while he was sitting in his wheelchair. He describes the pain as "a heaviness" constant 8/10 in midchest and "radiating to lungs" , worse with deep breath, associated with shortness of breath. He denies any fevers, cough, hemoptysis. He is chronically anticoagulated with warfarin and INR is 2.4. Chest x-ray demonstrates cardiomegaly, vascular congestion and pulmonary edema. Sodium is 134, BNP 2543, Troponin 0.08. EKG regular with RBBB and no ischemic changes. He reports compliance with PD regimen. Dr. Delgado has spoken with Dr. Anjana Pope who will initiate PD tonight. also notes he has been confused since receiving Morphine 6 mg IV and Dilaudid 1 mg IV in the ED. Subjective 09/01: Continues to have chest pain. Troponin has increased 0.3. Cardiology has been consulted. Chest pain is pleuritic. Not muscle skeletal. Generally feels weak. Medications adjusted see orders. 09/02 No events overnight. Tmax 101.2 yesterday 09/09: reconsulted for acute hypotension with acute shortness of breath. transfer to [facility]ICU from [facility]. I evaluated the patient. patient complains of shortness of breath which is worsening. I discussed his care with hospitalist and cardiology team: plan to give gentle fluid hydration and restart home oral vasopressor therapy. I had a lengthy discussion with the patient and his family regarding his overall medical health and goals of care. The patient wishes to be DNR, and the family agrees; I think this is appropriate. The patient also wants to know about his hospice options. I will consult palliative care to provide these options. Objective Vital Signs Date Time Temp Pulse Resp B/P Pulse Ox O2 Delivery O2 Flow Rate FiO2 09/09/16 15:00 94 Nasal Cannula 2.00 09/09/16 15:00 100 09/09/16 15:00 98.2 16 75/56 09/08/16 03:18 21 Intake and Output 09/08/16 09/08/16 09/09/16 08:00 16:00 00:00 Intake Total 240 ml 720 ml Output Total 878 ml Balance 240 ml -878 ml 720 ml Result Diagram: 09/09/16 1200 09/09/16 1200 Imaging Last Impressions Chest X-Ray 09/02/16 0000 Signed Impressions: Service Date/Time: Friday, September 02, 2016 04:55 - CONCLUSION: 1. Cardiomegaly and interstitial edema, slightly improved. 2. Heart valve replacement. Pedro Piña MD Objective Remarks GENERAL: 65-year-old male, resting in bed in no acute distress HEAD: Atraumatic. Normocephalic. EYES: Pupils equal and round, 3mm reactive to 2mm. No scleral icterus. No injection or drainage. ENT: No nasal bleeding or discharge. Mucous membranes pink and moist. NECK: Trachea midline. No JVD. CARDIOVASCULAR: RRR. S1, S2. No S4.. 3/6 systolic murmur at left lower sternal border and apex RESPIRATORY: B/l equal air entry GASTROINTESTINAL: Abdomen soft, non-tender, nondistended. VASC: +thrill LUE fistula. MUSCULOSKELETAL: Extremities without significant peripheral edema. NEUROLOGICAL: Awake and alert. A/P Assessment and Plan Assessment: 65yM ESRD on PD and severe mitral stenosis now with acute and worsening shortness of breath and hypotension. I agree with cardiology and hospitalist services that we may have overdiuresed the patient and his hypotension is secondary to relative volume depletion. We will gently give fluid back and add home oral vasopressor therapy. However, if we cannot control his fluid status in an inpatient setting and chronically his shortness of breath is worsening, I think this is a poor prognostic factor in his overall mitral stenosis which appears to be worsening. Family had initially been thinking about operative intervention, but patient already has TAVR, so likely contra-indicated for open cardiac procedure. Given his multiple medical comorbidities, he would be very high risk for any cardiac operation. Patient doesn't know if he wants to go through all the rehab to get back to a functional status or would prefer to go to hospice care. I have asked palliative to be involved. We will aim for a map > 60 mmHg and be conservative with his management. I spoke to the family at length. Highly complex medical patient. NEURO: History of left posterior parietal subarachnoid hemorrhage Hard of hearing Peripheral neuropathy Status post cervical and lumbar fusion Bilateral cataracts Chronic narcotic use Continue Neurontin 100 mg po bid. Lortab as needed for pain RESP: Acute respiratory insufficiency Pulmonary edema History of pulmonary hypertension Continue with oxygen keep sat > 92% Incentive spirometry while awake Bronchodilators, V/Q scan today showed low prob PE CV: h/o aortic stenosis s/p TAVR Severe Mitral stenosis Pulmonary HTN CHF secondary to valvular heart disease RBBB Paroxysmal Atrial fibrillation History of orthostatic hypotension ASA given in ED. Monitor HR and BP keep MAP>65mmHg Continue Flecainide 75 mg po bid, Midodrine 10 mg by mouth 3 times a day. Continue anticoagulation with warfarin for A. fib Cards is following GI: GERD Renal diet Bowel regimen per protocol On Protonix 20 mg by mouth daily. FEN/RENAL: ESRD - peritoneal dialysis Hyponatremia Hyperphosphatemia Monitor renal function, avoid nephrotoxins. On peritoneal dialysis x 3 years. PD per nephrology, Dr. Pope covering. Renvela 2400 mg po tid ID: Continue with abx ( Cefepime, Zithromax)Monitor for signs and symptoms of infection. HEME: Chronic anemia Chronic anticoagulation for paroxysmal history of A. fib, history of DVT Warfarin 5 mg daily Friday, 2.5 mg sat Friday Monitor INR 2.3 today ENDO: Secondary hyperparathyroidism Adrenal insufficiency Hyperglycemia may be secondary to chronic steroid use. D3 2000 units daily, calcitriol 0.25 po daily. Patient has chronic adrenal insufficiency following over 30 years of prednisone use. On Hydrocortisone 100mg Q8 Low dose insulin sliding scale ac/hs. MSK H/o gout H/O osteoarthritis PROPH:On warfarin with INR 2.3 today which provides DVT prophylaxis. Protonix 20 mg daily for stress ulcer prophylaxis and history of GERD ACCESS: PIV providing adequate access. Has LUE fistula . Discussed with patient's and updated her on patient's condition. Will sign off and transfer care to [facility] I have spent in excess of 25 of a 40 minute visit in counseling and coordination of care with the patient and patient's family. Our discussion included goals of care, overall prognosis, symptom management. discussion with cards re: mitral stenosis and hemodynamic management. Kevin Olmedo MD Sep 09, 2016 20:22
[2016-09-09] MEDS: AZITHROMYCIN 250 MG TAB PO SCH (21:17)
--- NOTE | 2016-09-09 23:27 | HHI.PR ---
Review/Management Diagnosis - Acute ischemic lacunar stroke on the right posterior frontal lobe - H/o left parietal non - traumatic ICH - Asterixis/ chronic, resolved, etiology is end organ failure - Abnormal EEG, that revealed evidence of epileptogenicity - Hereditary neuropathy - H/o of restless leg syndrome - H/o hypotension - CKD - H/o of left sided sciatica Plan - Neuro check Q4h - Continue home medications - Continue Keppra 250mg bid - Continue home anticoagulant therapy - PT/OT, recommendations are appreciated - DVT prophylaxis, SCDs' - GI prophylaxis Diagnosis/Plan: Subjective Subjective Comments Patient has made decision to be DNR Stable and improved neurologic status Subtle asterixis No new complaints Fully coherent, cognizant and verbal and two family members at bed side Patient states that " I do not want to live like this any more", despite the remarkable improvement in the neurologic status Active Medications Current Medications Medications (Trade) Dose Ordered Sig/Katina Route Start Time Stop Time Status Last Admin (Rocaltrol) 0.25 mcg DAILY PO 09/01/16 09:00 09/09/16 07:52 (Vitamin D3) 2,000 units DAILY PO 09/01/16 09:00 09/09/16 07:54 (Tambocor) 75 mg BID PO 09/01/16 00:30 09/09/16 21:17 (Neurontin) 100 mg BID PO 09/01/16 00:30 09/09/16 21:19 (Coumadin) 2.5 mg SuTuThSa@16 PO 09/01/16 16:00 09/03/16 16:00 (Coumadin) 5 mg MoWeFr@16 PO 09/02/16 16:00 09/09/16 17:25 (Nephrocaps) 1 cap DAILY PO 09/01/16 09:00 09/09/16 07:54 (Proamatine) 10 mg TID PO 09/01/16 09:00 09/09/16 17:24 (Pill Splitter) 1 ea UNSCH PRN OTHER 09/01/16 01:00 09/01/16 11:12 (NS Flush) 2 ml UNSCH PRN IV FLUSH 09/01/16 01:00 (NS Flush) 2 ml BID IV FLUSH 09/01/16 09:00 09/09/16 21:19 (Tylenol) 650 mg Q6H PRN PO 09/01/16 01:00 09/01/16 21:43 ([place] 5-325 Mg) 1 tab Q4H PRN PO 09/01/16 01:00 09/02/16 06:46 (Zofran Inj) 4 mg Q6H PRN IV 09/01/16 01:00 Miscellaneous Information 1 Q361D XX 09/01/16 01:00 09/01/16 01:00 (Chlorhexidine 2% Cloth) Taper DAILY@04 TOP 09/01/16 04:00 08/28/17 03:59 09/01/16 02:25 (Chlorhexidine 2% Cloth) 3 pack UNSCH PRN TOP 09/01/16 01:00 (Leah-Colace) 1 tab BID PO 09/01/16 09:00 09/09/16 07:52 (Milk Of Magnesia Liq) 30 ml Q12H PRN PO 09/01/16 01:00 (Senokot) 17.2 mg Q12H PRN PO 09/01/16 01:00 (Dulcolax Supp) 10 mg DAILY PRN RECTAL 09/01/16 01:00 (Lactulose Liq) 30 ml DAILY PRN PO 09/01/16 01:00 (D50w (Vial) Inj) 50 ml UNSCH PRN IV 09/01/16 02:00 (Glucagon Inj) 1 mg UNSCH PRN OTHER 09/01/16 02:00 (Renvela) 2,400 mg TIDAC PO 09/01/16 17:00 09/09/16 14:29 (Cepacol Extra Katty (Sugar Free)) 1 lozenge Q4H PRN BUCCAL 09/02/16 00:45 09/05/16 17:04 Hydrocortisone Sodium Succinate 50 mg 50 mg Q8HR IV PUSH 09/03/16 14:00 09/09/16 21:16 (Coumadin Consult Pharmacy) 0 ml @ 0 mls/hr UNSCH OTHER 09/04/16 10:30 (Tessalon) 200 mg TID PRN PO 09/04/16 14:00 09/05/16 01:05 (Metamucil Smooth Texture Sf/ Gf Pkt) 1 pkt DAILY PO 09/04/16 20:00 09/09/16 07:53 (Aspirin Chew) 81 mg DAILY CHEW 09/06/16 09:00 09/09/16 13:13 (Keppra) 250 mg Q12HR PO 09/05/16 21:00 09/09/16 21:18 (Zithromax) 500 mg Q24H PO 09/06/16 20:00 09/09/16 21:17 (KCl) 20 meq Q12HR PO 09/06/16 11:30 09/09/16 21:18 Patient Own Medication PT OWN MED: SASHA... DAILY TOPICAL 09/07/16 09:00 09/08/16 08:30 (Protonix) 20 mg BID PO 09/08/16 21:00 09/09/16 21:18 (Mag-Al Plus Susp Liq) 30 ml Q6H PRN PO 09/08/16 14:00 (Marinol) 2.5 mg BID PO 09/08/16 21:00 09/09/16 21:17 Patient Own Medication PT OWN MED: [place]... TID PO 09/09/16 18:00 09/09/16 17:24 Allergies Allergies Coded Allergies No Known Allergies (Unverified08/31/16) Review of Systems All other ROS: ROS reviewed as documented in chart Exam I&O / VS 09/08/16 09/08/16 09/09/16 15:00 23:00 07:00 Intake Total 720 ml Output Total 878 ml Balance -878 ml 720 ml Intake Oral 720 ml Peritoneal Fluid 878 ml # Voids 0 # Bowel Movements 1 Vital Signs Date Time Temp Pulse Resp B/P Pulse Ox O2 Delivery O2 Flow Rate FiO2 09/09/16 22:05 99 Nasal Cannula 3.00 09/09/16 15:00 94 Nasal Cannula 2.00 09/09/16 15:00 100 09/09/16 15:00 98.2 80 16 75/56 94 09/09/16 14:00 99 Nasal Cannula 2.00 09/09/16 13:00 53 09/09/16 12:00 74 09/09/16 11:20 100 09/09/16 11:20 100 09/09/16 11:20 97.6 78 22 96/57 96 09/09/16 11:20 99 Nasal Cannula 4.00 09/09/16 09:59 96 Nasal Cannula 2.00 09/09/16 08:00 90 09/09/16 07:00 93 09/09/16 01:00 96 09/09/16 00:02 96 Nasal Cannula 2.00 09/09/16 00:00 88 09/09/16 00:00 97.6 78 22 96/57 96 General: Alert and Oriented, No acute distress, Mild distress Eye: PERRL, EOMI Respiratory: Non-labored respirations, Coarse breath sounds Cardiology: Normal rate, Normal peripheral perfusion Neurologic: Alert, Oriented, Other (alert, oriented to person, time and place, no dysarhtria, no dysphasia, b/l limited movements of both shoulders / chronic, generalized muscle wasting, particulary in both hand muscles, b/l LE weakness/ chronic, no fasciculations, diminished senssation in a stockings fashion, sluggish b/l ankle reflexes , subtle b/l hand asterexis/flapping tremor/chronic) Psychiatric: Cooperative, Appropriate mood & affect, Non-suicidal Objective Radiology Results Last 72 hours Impressions Chest X-Ray 09/08/16 0000 Signed Impressions: Service Date/Time: Thursday, September 08, 2016 14:01 - CONCLUSION: 1. Compensated cardiomegaly with no acute infiltrate. 2. Extensive calcification of the mitral valve annulus. TAVR. Richard Ray MD Micro and Labs Laboratory Tests Test 09/09/16 09/09/16 09/09/16 05:55 12:00 17:15 Prothrombin Time 17.7 Prothromb Time International 1.6 Ratio White Blood Count 13.6 Red Blood Count 2.99 Hemoglobin 9.0 Hematocrit 28.2 Mean Corpuscular Volume 94.1 Mean Corpuscular Hemoglobin 29.9 Mean Corpuscular Hemoglobin 31.8 Concent Red Cell Distribution Width 15.3 Platelet Count 277 Mean Platelet Volume 8.5 Neutrophils (%) (Auto) 90.9 Lymphocytes (%) (Auto) 3.6 Monocytes (%) (Auto) 5.2 Eosinophils (%) (Auto) 0.1 Basophils (%) (Auto) 0.2 Neutrophils # (Auto) 12.4 Lymphocytes # (Auto) 0.5 Monocytes # (Auto) 0.7 Eosinophils # (Auto) 0.0 Basophils # (Auto) 0.0 CBC Comment AUTO DIFF Differential Total Cells 100 Counted Neutrophils % (Manual) 95 Lymphocytes % 1 Eosinophils % 1 Neutrophils # (Manual) 13.3 Metamyelocytes 1 Myelocytes 2 Differential Comment FINAL DIFF MANUAL Sodium Level 134 Potassium Level 5.8 Chloride Level 97 Carbon Dioxide Level 23.3 Anion Gap 14 Blood Urea Nitrogen 78 Creatinine 7.13 Estimat Glomerular Filtration 8 Rate Random Glucose 164 Calcium Level 7.3 Protein Corrected Calcium 7.6 Magnesium Level 1.9 Total Bilirubin 0.4 Aspartate Amino Transf 34 (AST/SGOT) Alanine Aminotransferase 42 (ALT/SGPT) Alkaline Phosphatase 80 Total Creatine Kinase 55 Troponin I 0.05 0.05 Total Protein 6.5 Albumin 2.4 Kike Tracey MD Sep 09, 2016 23:27
[2016-09-10 03:32] VITALS: BP 92/54; PULSE 70; RESP 18; TEMP 97.9; O2SAT 96
[2016-09-10] MEDS: CHLORHEXIDINE GLUCONATE 2 % 1 PACK (2 CLOTHS) TOP SCH (04:00)
[2016-09-10 06:08] LABS: INTERNATIONAL NORMALIZED RATIO 2.6 RATIO; PROTHROMBIN TIME - PATIENT 29.7 SEC (9.8-11.6)
[2016-09-10] MEDS: HYDROCORTISONE SOD SUCCINATE 100 MG VIAL IV PUSH SCH ×2 (06:26→14:00)
[2016-09-10 06:30] LABS: BICARBONATE 19.5 MEQ/L (21.0-32.0); POTASSIUM 5.3 MEQ/L (3.5-5.1)
[2016-09-10] MEDS: INSULIN ASPART SUPPLEMENTAL SCALE SQ SCH ×2 (06:32→11:00)
[2016-09-10 06:47] LABS: CALCIUM-PROTEIN CORRECTED 7.6 MG/DL (8.5-10.1)
[2016-09-10 07:00] VITALS: BP 81/52; PULSE 52; PULSE 58; RESP 25; TEMP 98.6; O2SAT 95; O2SAT 96
[2016-09-10] MEDS: SEVELAMER CARBONATE 800 MG TAB PO SCH ×2 (08:00→12:00)
--- NOTE | 2016-09-10 08:23 | PD.CARD.PN ---
Subjective Subjective Remarks The patient denies complaints this morning. Per the RN and medical records, the patient elected DNR status and wants to go home with hospice. The patient is currently hemodynamically stable. (Shaylee Daniels) Objective Medications Current Medications Medications (Trade) Dose Ordered Sig/Katina Route Start Time Stop Time Status Last Admin (Rocaltrol) 0.25 mcg DAILY PO 09/01/16 09:00 09/09/16 07:52 (Vitamin D3) 2,000 units DAILY PO 09/01/16 09:00 09/09/16 07:54 (Tambocor) 75 mg BID PO 09/01/16 00:30 09/09/16 21:17 (Neurontin) 100 mg BID PO 09/01/16 00:30 09/09/16 21:19 (Coumadin) 2.5 mg SuTuThSa@16 PO 09/01/16 16:00 09/03/16 16:00 (Coumadin) 5 mg MoWeFr@16 PO 09/02/16 16:00 09/09/16 17:25 (Nephrocaps) 1 cap DAILY PO 09/01/16 09:00 09/09/16 07:54 (Proamatine) 10 mg TID PO 09/01/16 09:00 09/09/16 17:24 (Pill Splitter) 1 ea UNSCH PRN OTHER 09/01/16 01:00 09/01/16 11:12 (NS Flush) 2 ml UNSCH PRN IV FLUSH 09/01/16 01:00 (NS Flush) 2 ml BID IV FLUSH 09/01/16 09:00 09/09/16 21:19 (Tylenol) 650 mg Q6H PRN PO 09/01/16 01:00 09/01/16 21:43 ([place] 5-325 Mg) 1 tab Q4H PRN PO 09/01/16 01:00 09/02/16 06:46 (Zofran Inj) 4 mg Q6H PRN IV 09/01/16 01:00 Miscellaneous Information 1 Q361D XX 09/01/16 01:00 09/01/16 01:00 (Chlorhexidine 2% Cloth) Taper DAILY@04 TOP 09/01/16 04:00 08/28/17 03:59 09/10/16 04:00 (Chlorhexidine 2% Cloth) 3 pack UNSCH PRN TOP 09/01/16 01:00 (Leah-Colace) 1 tab BID PO 09/01/16 09:00 09/09/16 07:52 (Milk Of Magnesia Liq) 30 ml Q12H PRN PO 09/01/16 01:00 (Senokot) 17.2 mg Q12H PRN PO 09/01/16 01:00 (Dulcolax Supp) 10 mg DAILY PRN RECTAL 09/01/16 01:00 (Lactulose Liq) 30 ml DAILY PRN PO 09/01/16 01:00 (D50w (Vial) Inj) 50 ml UNSCH PRN IV 09/01/16 02:00 (Glucagon Inj) 1 mg UNSCH PRN OTHER 09/01/16 02:00 (Renvela) 2,400 mg TIDAC PO 09/01/16 17:00 09/09/16 14:29 (Cepacol Extra Katty (Sugar Free)) 1 lozenge Q4H PRN BUCCAL 09/02/16 00:45 09/05/16 17:04 Hydrocortisone Sodium Succinate 50 mg 50 mg Q8HR IV PUSH 09/03/16 14:00 09/10/16 06:26 (Coumadin Consult Pharmacy) 0 ml @ 0 mls/hr UNSCH OTHER 09/04/16 10:30 (Tessalon) 200 mg TID PRN PO 09/04/16 14:00 09/05/16 01:05 (Metamucil Smooth Texture Sf/ Gf Pkt) 1 pkt DAILY PO 09/04/16 20:00 09/09/16 07:53 (Aspirin Chew) 81 mg DAILY CHEW 09/06/16 09:00 09/09/16 13:13 (Keppra) 250 mg Q12HR PO 09/05/16 21:00 09/09/16 21:18 (Zithromax) 500 mg Q24H PO 09/06/16 20:00 09/09/16 21:17 (KCl) 20 meq Q12HR PO 09/06/16 11:30 09/09/16 21:18 Patient Own Medication PT OWN MED: SASHA... DAILY TOPICAL 09/07/16 09:00 09/08/16 08:30 (Protonix) 20 mg BID PO 09/08/16 21:00 09/09/16 21:18 (Mag-Al Plus Susp Liq) 30 ml Q6H PRN PO 09/08/16 14:00 (Marinol) 2.5 mg BID PO 09/08/16 21:00 09/09/16 21:17 Patient Own Medication PT OWN MED: [place]... TID PO 09/09/16 18:00 09/09/16 17:24 Vital Signs / I&O Vital Signs Date Time Temp Pulse Resp B/P Pulse Ox O2 Delivery O2 Flow Rate FiO2 09/10/16 07:00 52 09/10/16 03:32 70 09/10/16 03:32 97.9 70 18 92/54 96 09/10/16 03:32 96 Nasal Cannula 3.00 09/09/16 23:48 97.9 77 18 73/61 96 09/09/16 23:48 70 09/09/16 23:48 96 Nasal Cannula 3.00 09/09/16 22:05 99 Nasal Cannula 3.00 09/09/16 19:31 93 Nasal Cannula 2.00 09/09/16 19:31 99.5 99 19 93/55 93 09/09/16 19:00 99 09/09/16 15:00 94 Nasal Cannula 2.00 09/09/16 15:00 100 09/09/16 15:00 98.2 80 16 75/56 94 09/09/16 14:00 99 Nasal Cannula 2.00 09/09/16 13:00 53 09/09/16 12:00 74 09/09/16 11:20 100 09/09/16 11:20 100 09/09/16 11:20 97.6 78 22 96/57 96 09/09/16 11:20 99 Nasal Cannula 4.00 09/09/16 09:59 96 Nasal Cannula 2.00 I/O 09/09/16 09/09/16 09/09/16 09/10/16 09/10/16 09/10/16 07:00 15:00 23:00 07:00 15:00 23:00 Intake Total 1820 ml 240 ml Output Total 847 ml 0 ml 0 ml Balance -847 ml 1820 ml 240 ml Intake Oral 720 ml 240 ml IV Total 1000 ml Albumin 100 ml Output Urine Total 0 ml 0 ml Stool Total 0 ml Peritoneal Fluid 847 ml # Voids 0 # Bowel Movements 0 1 Physical Exam GENERAL: middle aged male in the ICU, sleeping, easy to arouse SKIN: Warm and dry. HEAD: Normocephalic. EYES: No scleral icterus. No injection or drainage. NECK: Supple, trachea midline. CARDIOVASCULAR: Irregularly irreg, mumur GASTROINTESTINAL: Abdomen soft, non-tender, nondistended. PD catheter MUSCULOSKELETAL: No cyanosis, no edema BACK: Nontender without obvious deformity. No CVA tenderness. Laboratory Laboratory Tests Test 09/09/16 09/09/16 09/09/16 09/10/16 12:00 17:15 23:26 05:18 White Blood Count 13.6 TH/MM3 Red Blood Count 2.99 MIL/MM3 Hemoglobin 9.0 GM/DL Hematocrit 28.2 % Mean Corpuscular Volume 94.1 FL Mean Corpuscular Hemoglobin 29.9 PG Mean Corpuscular Hemoglobin 31.8 % Concent Red Cell Distribution Width 15.3 % Platelet Count 277 TH/MM3 Mean Platelet Volume 8.5 FL Neutrophils (%) (Auto) 90.9 % Lymphocytes (%) (Auto) 3.6 % Monocytes (%) (Auto) 5.2 % Eosinophils (%) (Auto) 0.1 % Basophils (%) (Auto) 0.2 % Neutrophils # (Auto) 12.4 TH/MM3 Lymphocytes # (Auto) 0.5 TH/MM3 Monocytes # (Auto) 0.7 TH/MM3 Eosinophils # (Auto) 0.0 TH/MM3 Basophils # (Auto) 0.0 TH/MM3 CBC Comment AUTO DIFF Differential Total Cells 100 Counted Neutrophils % (Manual) 95 % Lymphocytes % 1 % Eosinophils % 1 % Neutrophils # (Manual) 13.3 TH/MM3 Metamyelocytes 1 % Myelocytes 2 % Differential Comment FINAL DIFF MANUAL Sodium Level 134 MEQ/L 133 MEQ/L Potassium Level 5.8 MEQ/L 5.3 MEQ/L Chloride Level 97 MEQ/L 97 MEQ/L Carbon Dioxide Level 23.3 MEQ/L 19.5 MEQ/L Anion Gap 14 MEQ/L 17 MEQ/L Blood Urea Nitrogen 78 MG/DL 91 MG/DL Creatinine 7.13 MG/DL 7.07 MG/DL Estimat Glomerular Filtration 8 ML/MIN 8 ML/MIN Rate Random Glucose 164 MG/DL 142 MG/DL Calcium Level 7.3 MG/DL 7.2 MG/DL Protein Corrected Calcium 7.6 MG/DL 7.6 MG/DL Magnesium Level 1.9 MG/DL Total Bilirubin 0.4 MG/DL Aspartate Amino Transf 34 U/L (AST/SGOT) Alanine Aminotransferase 42 U/L (ALT/SGPT) Alkaline Phosphatase 80 U/L Total Creatine Kinase 55 U/L 38 U/L 42 U/L Troponin I 0.05 NG/ML 0.05 NG/ML 0.05 NG/ML 0.05 NG/ML Total Protein 6.5 GM/DL 6.3 GM/DL Albumin 2.4 GM/DL Prothrombin Time 29.7 SEC Prothromb Time International 2.6 RATIO Ratio Imaging Last 72 hours Impressions Chest X-Ray 09/08/16 0000 Signed Impressions: Service Date/Time: Thursday, September 08, 2016 14:01 - CONCLUSION: 1. Compensated cardiomegaly with no acute infiltrate. 2. Extensive calcification of the mitral valve annulus. TAVR. Richard Ray MD (Shaylee Daniels) Assessment and Plan Assessment and Plan ASSESSMENT Chest pain with slightly elevated troponins. Chest pain and elevated troponin due to pulmonary edema and fluid overload. Hypotension , hx of low BP. Acute episode due to low fluid status Atrial fibrillation on coumadin- INR therapeutic Severe MS, Mod MR, RVSP 54, EF 50-55% Echo 09/04/2016 ASHD, heart cath 01/2014 TAVR 03/[address] Hart. Abnormal EEG suspicious of epilepsy CVA- new acute lacunar stroke PLAN Agree with palliative care with consideration for Hospice. The patient has multiple comorbidities. He is a poor candidate for intervention for severe MS. Diuresis/dialysis per nephrology Pharmacy to dose coumadin. Hold parameters for ASA for INR > 3. Patient has a history of non-traumatic ICH Assessment and plan discussed with Dr. Castro (Shaylee Daniels) Shaylee Daniels Sep 10, 2016 08:23 Guillermo Castro MD Sep 10, 2016 14:44
[2016-09-10] MEDS: CALCITRIOL 0.25 MCG CAP PO SCH (09:00)
[2016-09-10] MEDS: POTASSIUM CHLORIDE 10 MEQ CONTROLLED RELEASE TAB PO SCH (09:00)
[2016-09-10] MEDS: [UNRECOGNIZED DRUG - OTHER] TOPICAL SCH (09:00)
[2016-09-10] MEDS: PANTOPRAZOLE SOD 20 MG DELAYED RELEASE TAB PO SCH (09:00)
[2016-09-10] MEDS: DRONABINOL 2.5 MG CAP PO SCH (09:00)
[2016-09-10] MEDS: MIDODRINE 5 MG TAB PO SCH ×3 (09:00→18:00)
[2016-09-10] MEDS: POLYETHYLENE GLYCOL 17 GM PKG PO SCH (09:00)
[2016-09-10] MEDS: VITAMIN B CMPLX/VITC/FOLIC AC CAP PO SCH (09:00)
[2016-09-10] MEDS: PSYLLIUM FIBER SF/GF 6 GM POWD PKT PO SCH (09:00)
[2016-09-10] MEDS: CHOLECALCIFEROL (VIT D3) 1000 UNIT TAB PO SCH (09:00)
[2016-09-10] MEDS: DOCUSATE SODIUM 50 MG/SENNA 8.6 MG TAB PO SCH (09:00)
[2016-09-10] MEDS: NORTHERA PO SCH ×2 (09:00→13:00)
[2016-09-10] MEDS: ASPIRIN 81 MG CHEW TAB CHEW SCH (09:00)
[2016-09-10] MEDS: levETIRAcetam 250 MG TAB PO SCH (09:00)
[2016-09-10] MEDS: GABAPENTIN 100 MG CAP PO SCH (09:00)
[2016-09-10] MEDS: SODIUM CHLORIDE 0.9% FLUSH 10 ML FLUSH IV FLUSH SCH (09:00)
[2016-09-10] MEDS: FLECAINIDE ACETATE 100 MG TAB PO SCH (09:00)
[2016-09-10 11:00] VITALS: BP 83/65; PULSE 108; PULSE 55; RESP 23; TEMP 98; O2SAT 99
--- NOTE | 2016-09-10 11:29 | EKG ---
Date Performed: 09/09/2016 Time Performed: 11:39:18 PTAGE: 65 years EKG: Atrial fibrillation with rapid ventricular response Right axis deviation Right bundle branc h block Peaked T waves, cannot exclude hyperkalemia. Abnormal ECG PREVIOUS TRACING 09/02/2016 No major change suspected from the prior tracing. DOCTOR: Austin Kelly Interpretating Date/Time 09/10/2016 11:27:49
--- NOTE | 2016-09-10 12:40 | PD.CONS ---
Consult Service Palliative Care . Consult Requested By Dr. Olmedo. . Primary Care Physician Vicente Amado MD . Reason for Consultation a. To assist with evaluation and management of symptoms including: weakness , chest pain, shortness of breath. b. To assist medical decision maker(s) with: better understanding of current medical conditions; weighing benefits/burdens of medical treatment options; making medical treatment decisions. . HPI History of Present Illness Mr. Villatoro is a 65-year-old male with past medical history of end-stage renal disease status post renal transplant in 1985 and 1989 who has been on intermittent peritoneal dialysis (16 hours nightly starting at 5 PM) for the past 3 years, congestive heart failure (nonischemic), aortic stenosis status post TAVR 03/2014, hyperlipidemia, COPD, atrial fibrillation on warfarin, DVT, Gerd, peripheral neuropathy and sacral decubitus ulcer. Patient outpatient medical team: PMD - Dr. Vicente Amado Match Up Person - Dr. Linder Cotton Baler - Dr. Sesay Urologist - Dr. Ramires Veterans Service Representative - Dr Castro Cctv Technician - Dr. Katalina Quiroga Neurologist - Dr. Tracey Utilization Review Rn - Dr. Nubia Velázquez Patient presented to [facility] emergency department on 08/31/16 with chest pain. Notes indicate the patient develop chest pain while sitting in his wheelchair, described the pain as a heaviness rated 8 out of 10 in the mid- chest radiating to his lungs, worsening with deep breath and associated shortness of breath. Pertinent initial evaluation revealed: * INR was 2.4. * Chest x-ray revealed cardiomegaly, vascular congestion and pulmonary edema. * Sodium is 134 * BNP 2543 * Troponin 0.08 * EKG regular with RBBB and no ischemic changes. Patient is admitted with congestive heart failure, chronic kidney disease on peritoneal dialysis. Nephrology, Dr. Pope was consulted for end-stage renal disease/peritoneal dialysis management. VQ lung scan low probability for pulmonary embolism. Cardiology, Dr. Egan was consulted and recommended echocardiogram. Chest pain thought likely secondary to pulmonary venous hypertension from fluid overload and mitral stenosis, not likely related to myocardial ischemia. Echocardiogram revealed ejection fraction 50 55%, moderate tricuspid and mitral regurgitation, severe mitral valve stenosis. On 09/03/16 patient developed increased confusion into tremors, neurology (Dr. Almonte) was consulted not likely to be secondary to multiple medications versus encephalopathy versus ICU psychosis. MRI brain revealed tiny acute subcentimeter lacunar infarct posterior right frontal lobe hemosiderin deposition from prior hemorrhage and left parietal lobe similar to December 2015 , no massive factor shift. EEG abnormal due to face reversals and sharp waves seen consistent with probable epileptic focus. 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 transfer to [facility]ICU from [facility]. I evaluated the patient. patient complains of shortness of breath which is worsening. I discussed his care with hospitalist and cardiology team: plan to give gentle fluid hydration and restart home oral vasopressor therapy. I had a lengthy discussion with the patient and his family regarding his overall medical health and goals of care. The patient wishes to be DNR, and the family agrees; I think this is appropriate. The patient also wants to know about his hospice options. Palliative care was consulted for further clarification of treatment goals. Function/Cognitive Trajectory Uses a wheelchair and is nonambulatory at baseline. Oxygen dependent. Has been on peritoneal dialysis. . Review of Systems Constitutional: COMPLAINS OF: Fatigue, Weight loss, Change in appetite ( decreased), Generalized weakness Respiratory: COMPLAINS OF: Shortness of breath Cardiovascular: COMPLAINS OF: Chest pain, Dyspnea on Exertion, Lower Extremity Edema, Orthopnea Gastrointestinal: COMPLAINS OF: Constipation Hematologic/Lymphatics: COMPLAINS OF: Bruising Psychiatric: COMPLAINS OF: Anxiety Past Family Social History Coded Allergies: No Known Allergies (Unverified , 08/31/16) Past Medical History CHF, nonischemic Has had multiple negative caths in the past after prior abnormal stress tests. Has no stents. Aortic stenosis status post TAVR 03/04/14 Moderate mitral stenosis on Echo 06/15 Atrial fibrillation on chronic anticoagulation with warfarin ESRD - currently on PD. Has h/o renal transplant in 1985 and 1989. Transplant failed about 3 years ago and he has subsequently been on PD. Has LUE fistula from 1985 which was last accessed 3 years ago. Hyperlipidemia COPD DVT GERD Gout Osteoarthritis Adrenal insufficiency Admitted December 2015 for subarachnoid hemorrhage, non aneurysmal. Cataracts CMV pneumonia in 2014 . Past Surgical History Kidney transplant x 2 (1985 and 1989) C1/C2 fusion L2-L5 fusion Right shoulder surgery with resection of cyst AC joint 09/15/14 (Dr. José) TAVR 03/04/14 [facility] AV fistula left upper extremity, 1986 Peritoneal dialysis catheter placed about 3 years ago All cardiac catheterizations in the past have been negative per his . The most recent of which was in 2013. He has no stents Colonoscopy 02/02/15 Left wrist carpal tunnel surgery . Reported Medications Reported Medications Prednisone 7 mg by mouth daily Midrin 10 mg by mouth 3 times a day Tylenol 650 g by mouth every 4 hours when necessary pain 5/ milligrams by mouth twice a day Warfarin 2.5 mg by mouth daily Friday, Friday, Friday, Warfarin 5 mg by mouth daily Friday, Friday Gabapentin 100 g by mouth twice a day Omeprazole 1 tab by mouth daily Prolene 60 mg subcutaneous every 3 months Boost breeze daily Colace 100 mg by mouth daily Erythropoietin 10,000 units subcutaneous 3 times per week Lortab 5/325 by mouth every 4 hours as needed for pain Glucosamine 2000 mg by mouth daily Renvela 800 g by mouth 3 times a day Omeprazole 20 mg by mouth daily at bedtime Potassium chloride 10 mEq Friday, Friday, , Friday Potassium 20 mEq Friday, Friday, Friday B vitamin Calcitriol 0.25 g by mouth daily Vitamin D3 2000 units by mouth daily . Current Medications Medications (Trade) Dose Ordered Sig/Katina Route Start Time Stop Time Status Last Admin (Rocaltrol) 0.25 mcg DAILY PO 09/01/16 09:00 09/10/16 09:00 (Vitamin D3) 2,000 units DAILY PO 09/01/16 09:00 09/10/16 09:00 (Tambocor) 75 mg BID PO 09/01/16 00:30 09/10/16 09:00 (Neurontin) 100 mg BID PO 09/01/16 00:30 09/10/16 09:00 (Coumadin) 2.5 mg SuTuThSa@16 PO 09/01/16 16:00 09/03/16 16:00 (Coumadin) 5 mg MoWeFr@16 PO 09/02/16 16:00 09/09/16 17:25 (Nephrocaps) 1 cap DAILY PO 09/01/16 09:00 09/10/16 09:00 (Proamatine) 10 mg TID PO 09/01/16 09:00 09/10/16 09:00 (Pill Splitter) 1 ea UNSCH PRN OTHER 09/01/16 01:00 09/01/16 11:12 (NS Flush) 2 ml UNSCH PRN IV FLUSH 09/01/16 01:00 (NS Flush) 2 ml BID IV FLUSH 09/01/16 09:00 09/10/16 09:00 (Tylenol) 650 mg Q6H PRN PO 09/01/16 01:00 09/01/16 21:43 ([place] 5-325 Mg) 1 tab Q4H PRN PO 09/01/16 01:00 09/02/16 06:46 (Zofran Inj) 4 mg Q6H PRN IV 09/01/16 01:00 Miscellaneous Information 1 Q361D XX 09/01/16 01:00 09/01/16 01:00 (Chlorhexidine 2% Cloth) Taper DAILY@04 TOP 09/01/16 04:00 08/28/17 03:59 09/10/16 04:00 (Chlorhexidine 2% Cloth) 3 pack UNSCH PRN TOP 09/01/16 01:00 (Leah-Colace) 1 tab BID PO 09/01/16 09:00 09/09/16 07:52 (Milk Of Magnesia Liq) 30 ml Q12H PRN PO 09/01/16 01:00 (Senokot) 17.2 mg Q12H PRN PO 09/01/16 01:00 (Dulcolax Supp) 10 mg DAILY PRN RECTAL 09/01/16 01:00 (Lactulose Liq) 30 ml DAILY PRN PO 09/01/16 01:00 (D50w (Vial) Inj) 50 ml UNSCH PRN IV 09/01/16 02:00 (Glucagon Inj) 1 mg UNSCH PRN OTHER 09/01/16 02:00 (Renvela) 2,400 mg TIDAC PO 09/01/16 17:00 09/10/16 08:00 (Cepacol Extra Katty (Sugar Free)) 1 lozenge Q4H PRN BUCCAL 09/02/16 00:45 09/05/16 17:04 Hydrocortisone Sodium Succinate 50 mg 50 mg Q8HR IV PUSH 09/03/16 14:00 09/10/16 06:26 (Coumadin Consult Pharmacy) 0 ml @ 0 mls/hr UNSCH OTHER 09/04/16 10:30 (Tessalon) 200 mg TID PRN PO 09/04/16 14:00 09/05/16 01:05 (Metamucil Smooth Texture Sf/ Gf Pkt) 1 pkt DAILY PO 09/04/16 20:00 09/09/16 07:53 (Aspirin Chew) 81 mg DAILY CHEW 09/06/16 09:00 09/10/16 09:00 (Keppra) 250 mg Q12HR PO 09/05/16 21:00 09/10/16 09:00 (Zithromax) 500 mg Q24H PO 09/06/16 20:00 09/09/16 21:17 (KCl) 20 meq Q12HR PO 09/06/16 11:30 09/09/16 21:18 Patient Own Medication PT OWN MED: SASHA... DAILY TOPICAL 09/07/16 09:00 09/08/16 08:30 (Protonix) 20 mg BID PO 09/08/16 21:00 09/10/16 09:00 (Mag-Al Plus Susp Liq) 30 ml Q6H PRN PO 09/08/16 14:00 (Marinol) 2.5 mg BID PO 09/08/16 21:00 09/10/16 09:00 Patient Own Medication PT OWN MED: NORTH... TID PO 09/09/16 18:00 09/10/16 09:00 . Family History Father had history of coronary artery disease and stents, unclear age. Mother of breast cancer at age 82. . Substance Use Tobacco: quit smoking in the 1970s, previously smoked half pack per day. Alcohol: none. Prescription med abuse: none. Illicits: none. . Psychosocial History , lives in [place]. College graduate. Daughter here from [place]. Many family members at bedside. . Spiritual/Cultural Factors Declines cloth washer back tender support. . Living Will: Never completed Health Care Surrogate: Never completed Durable Power of Event Specialist: Never completed Health Care Surrogate(s): Patient is capacitated to make his own decisions. If patient loses capacity, according to [place] statutes, health care proxy decision-making falls to the patient's spouse. Patient's spouse and daughter support nation decisions at this time. . Today's verbally stated goals: Patient desires comfort measures only. Family open to hospice support, patient verbalizes he does not want to be moved outside of the hospital. Patient desires medications for comfort. Family supports his decisions. Family/friends goals: , daughter and many other family members support the patient's decision for comfort focused care with hospice support. . Ethical and Legal Issues Patient is capacitated to make his own decisions. If patient loses capacity, according to [place] statutes, health care proxy decision-making falls to the patient's spouse. Patient's spouse and daughter support [facility] decisions at this time. . Physical Exam Vital Signs Date Time Temp Pulse Resp B/P Pulse Ox O2 Delivery O2 Flow Rate FiO2 09/10/16 07:00 52 09/10/16 07:00 95 Nasal Cannula 3.00 09/10/16 07:00 98.6 58 25 81/52 96 09/10/16 03:32 70 09/10/16 03:32 97.9 70 18 92/54 96 09/10/16 03:32 96 Nasal Cannula 3.00 09/09/16 23:48 97.9 77 18 73/61 96 09/09/16 23:48 70 09/09/16 23:48 96 Nasal Cannula 3.00 09/09/16 22:05 99 Nasal Cannula 3.00 09/09/16 19:31 93 Nasal Cannula 2.00 09/09/16 19:31 99.5 99 19 93/55 93 09/09/16 19:00 99 09/09/16 15:00 94 Nasal Cannula 2.00 09/09/16 15:00 100 09/09/16 15:00 98.2 80 16 75/56 94 09/09/16 14:00 99 Nasal Cannula 2.00 09/09/16 13:00 53 09/09/16 09/10/16 19:00 07:00 Intake Total 1820 ml 240 ml Output Total 847 ml 0 ml Balance 973 ml 240 ml Intake Oral 720 ml 240 ml IV Total 1000 ml Albumin 100 ml Output Urine Total 0 ml 0 ml Stool Total 0 ml Peritoneal Fluid 847 ml # Voids 0 # Bowel Movements 0 1 Exam CONSTITUTIONAL/GENERAL: This is a frail, critically ill patient. TUBES/LINES/DRAINS: Oxygen via NC, PIV x 2 right, peritoneal catheter. SKIN: No jaundice, rashes, or lesions. Ecchymoses on upper extremities. No wounds seen anteriorly. Skin temperature appropriate. Not diaphoretic. HEAD: Atraumatic. Normocephalic. EYES: Pupils equal and round and reactive. Extraocular motions intact. No scleral icterus. No injection or drainage. Fundi not examined. ENT: Hearing grossly normal. Nose without bleeding or purulent drainage. Throat without visible erythema, exudates, masses, or lesions. NECK: Trachea midline. CARDIOVASCULAR: Regular rate and rhythm. systolic murmur. RESPIRATORY/CHEST: Symmetric, unlabored respirations. Clear to auscultation. Diminished breath sounds bilaterally. GASTROINTESTINAL: Abdomen soft, non-tender, nondistended. Bowel sounds present. GENITOURINARY: Without palpable bladder distension. Long catheter in place. MUSCULOSKELETAL: Extremities with trace edema. Mottling bilateral LE toes to knees, cold to touch. LYMPHATICS: No palpable cervical or supraclavicular adenopathy. NEUROLOGICAL: Awake, lethargic. Follows commands. Cognitively sharp. Moves all extremities. PSYCHIATRIC: Calm, at peace "ready to ." . Diagnostic Tests Laboratory Laboratory Tests Test 09/08/16 09/09/16 09/09/16 09/09/16 05:41 05:55 12:00 17:15 White Blood Count 13.6 TH/MM3 13.6 TH/MM3 (4.0-11.0) (4.0-11.0) Red Blood Count 3.28 MIL/MM3 2.99 MIL/MM3 (4.50-5.90) (4.50-5.90) Hemoglobin 9.8 GM/DL 9.0 GM/DL (13.0-17.0) (13.0-17.0) Hematocrit 30.5 % 28.2 % (39.0-51.0) (39.0-51.0) Mean Corpuscular Volume 93.1 FL 94.1 FL (80.0-100.0) (80.0-100.0) Mean Corpuscular Hemoglobin 29.9 PG 29.9 PG (27.0-34.0) (27.0-34.0) Mean Corpuscular Hemoglobin 32.1 % 31.8 % Concent (32.0-36.0) (32.0-36.0) Red Cell Distribution Width 15.2 % 15.3 % (11.6-17.2) (11.6-17.2) Platelet Count 275 TH/MM3 277 TH/MM3 (150-450) (150-450) Mean Platelet Volume 8.1 FL 8.5 FL (7.0-11.0) (7.0-11.0) Prothrombin Time 22.0 SEC 17.7 SEC (9.8-11.6) (9.8-11.6) Prothromb Time International 1.9 RATIO 1.6 RATIO Ratio Sodium Level 132 MEQ/L 134 MEQ/L (136-145) (136-145) Potassium Level 4.5 MEQ/L 5.8 MEQ/L (3.5-5.1) (3.5-5.1) Chloride Level 95 MEQ/L 97 MEQ/L (98-107) (98-107) Carbon Dioxide Level 22.8 MEQ/L 23.3 MEQ/L (21.0-32.0) (21.0-32.0) Anion Gap 14 MEQ/L (5-15) 14 MEQ/L (5-15) Blood Urea Nitrogen 75 MG/DL (7-18) 78 MG/DL (7-18) Creatinine 6.83 MG/DL 7.13 MG/DL (0.60-1.30) (0.60-1.30) Estimat Glomerular Filtration 8 ML/MIN (>89) 8 ML/MIN (>89) Rate Random Glucose 120 MG/DL 164 MG/DL (74-106) (74-106) Calcium Level 7.6 MG/DL 7.3 MG/DL (8.5-10.1) (8.5-10.1) Neutrophils (%) (Auto) 90.9 % (16.0-70.0) Lymphocytes (%) (Auto) 3.6 % (9.0-44.0) Monocytes (%) (Auto) 5.2 % (0.0-8.0) Eosinophils (%) (Auto) 0.1 % (0.0-4.0) Basophils (%) (Auto) 0.2 % (0.0-2.0) Neutrophils # (Auto) 12.4 TH/MM3 (1.8-7.7) Lymphocytes # (Auto) 0.5 TH/MM3 (1.0-4.8) Monocytes # (Auto) 0.7 TH/MM3 (0-0.9) Eosinophils # (Auto) 0.0 TH/MM3 (0-0.4) Basophils # (Auto) 0.0 TH/MM3 (0-0.2) CBC Comment AUTO DIFF Differential Total Cells 100 Counted Neutrophils % (Manual) 95 % (16-70) Lymphocytes % 1 % (9-44) Eosinophils % 1 % (0-4) Neutrophils # (Manual) 13.3 TH/MM3 (1.8-7.7) Metamyelocytes 1 % (0-1) Myelocytes 2 % (0-0) Differential Comment FINAL DIFF MANUAL Protein Corrected Calcium 7.6 MG/DL (8.5-10.1) Magnesium Level 1.9 MG/DL (1.5-2.5) Total Bilirubin 0.4 MG/DL (0.2-1.0) Aspartate Amino Transf 34 U/L (15-37) (AST/SGOT) Alanine Aminotransferase 42 U/L (12-78) (ALT/SGPT) Alkaline Phosphatase 80 U/L (45-117) Total Creatine Kinase 55 U/L (39-308) Troponin I 0.05 NG/ML 0.05 NG/ML (0.02-0.05) (0.02-0.05) Total Protein 6.5 GM/DL (6.4-8.2) Albumin 2.4 GM/DL (3.4-5.0) Test 09/09/16 09/10/16 23:26 05:18 Total Creatine Kinase 38 U/L (39-308) 42 U/L (39-308) Troponin I 0.05 NG/ML 0.05 NG/ML (0.02-0.05) (0.02-0.05) Prothrombin Time 29.7 SEC (9.8-11.6) Prothromb Time International 2.6 RATIO Ratio Sodium Level 133 MEQ/L (136-145) Potassium Level 5.3 MEQ/L (3.5-5.1) Chloride Level 97 MEQ/L (98-107) Carbon Dioxide Level 19.5 MEQ/L (21.0-32.0) Anion Gap 17 MEQ/L (5-15) Blood Urea Nitrogen 91 MG/DL (7-18) Creatinine 7.07 MG/DL (0.60-1.30) Estimat Glomerular Filtration 8 ML/MIN (>89) Rate Random Glucose 142 MG/DL (74-106) Calcium Level 7.2 MG/DL (8.5-10.1) Protein Corrected Calcium 7.6 MG/DL (8.5-10.1) Total Protein 6.3 GM/DL (6.4-8.2) Result Diagram: 09/09/16 1200 09/10/16 0518 Imaging Last Impressions Chest X-Ray 09/08/16 0000 Signed Impressions: Service Date/Time: Thursday, September 08, 2016 14:01 - CONCLUSION: 1. Compensated cardiomegaly with no acute infiltrate. 2. Extensive calcification of the mitral valve annulus. TAVR. Richard Ray MD Brain MRI 09/04/16 0000 Signed Impressions: Service Date/Time: Sunday, September 04, 2016 16:55 - CONCLUSION: 1. Tiny acute subcentimeter lacunar infarct posterior right frontal lobe. 2. 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 No mass effect or shift. Anthony Astorga MD Lung Scan-VQ Nuclear Medicine 09/02/16 0000 Signed Impressions: Service Date/Time: Friday, September 02, 2016 11:20 - CONCLUSION: Single large V/Q match , low probability for pulmonary embolism. embolism. Myron Damian MD FACR . Patient/Family Conference Present at Family Conference: Met with patient, and daughter at bedside. . Family Conference Time (mins): 30 Family Conference Location: Bedside Issues Discussed: * Palliative care role, purpose, approach * Additional medical, psychosocial, and spiritual history * Patients general health, functional status, and cognitive changes in the months leading up to the current hospitalization * Patient/family understanding of the current medical problems * Patient/family understanding of prognosis * Patients goals of care as best understood from advance directives and/or conversations and/or values * Current medical treatment options and benefits/burdens of those options * Likely scenarios comparing ongoing aggressive care with a transition to comfort measures only * Questions answered to the best of my ability * Palliative care contact information provided Patient verbalizes he is ready to , family supports his decision. He wants medication for the pain and shortness of breath. He desires comfort measures. Hospice consulted. Patient appears to be imminently dying, prognosis hours to days, family aware. Patient prefers to stay in hospital as opposed to moving to a care center, I think this is appropriate as he does not appear stable enough for transport. . Assessment and Plan Disease Oriented Problem List: (1) Mitral stenosis (2) Mitral regurgitation (3) COPD (chronic obstructive pulmonary disease) (4) Acute on chronic kidney disease (5) Atrial fibrillation (6) Anticoagulated on Coumadin (7) Neuropathy (8) S/p TAVR (transcatheter aortic valve replacement), bioprosthetic (9) Aortic stenosis (10) End-stage renal disease on peritoneal dialysis (11) Chronic anemia (12) Pulmonary hypertension (13) RBBB Symptom Scale: (1) Shortness of breath 0-10 Scale: Unable to quantify (2) Weakness 0-10 Scale: Unable to quantify (3) Chest pain 0-10 Scale: 8 Pertinent Non-Medical Issues Psychosocial: , lives in [place]. Spiritual: Declines cloth washer back tender support. Legal: Patient is capacitated to make his own decisions. If patient loses capacity, according to [place] statutes, health care proxy decision-making falls to the patient's spouse. Patient's spouse and daughter support nation decisions at this time. Ethical issues impacting care: no known concerns at this time. . Important Contacts * Tati Villatoro, : [phone] Prognosis Patient appears to be imminently dying, PPS 10. Prognosis hours to days. . Code Status: No Code Plan * Decision Maker: Patient is capacitated to make his own decisions. If patient loses capacity, according to [place] statutes, health care proxy decision- making falls to the patient's spouse. Patient's spouse and daughter support nation decisions at this time. * NO CODE * Palliative care met with patient/ family: Patient verbalizes he is ready to , family supports his decision. He wants medication for the pain and shortness of breath. He desires comfort measures. Hospice consulted. Patient appears to be imminently dying, prognosis hours to days, family aware. Patient prefers to stay in hospital as opposed to moving to a care center, I think this is appropriate as he does not appear stable enough for transport. * Hospice consulted. * Discussed with nursing staff, Dr. Baltazar and Dr. Olmedo. * SYMPTOMS: Weakness: due to heart disease, ESRD disease, and decline. Chest pain: rates pain in chest 8/10 feels like he is dying. Desires medication to control pain. Shortness of breath: due to CHF, heart diease, renal disease and COPD. Patient is imminently dying. Orders for hydromorphone 1 mg IV Q1 hour PRN and lorazepam 1 mg IV Q1 hour PRN available. Requested nurse give 1st dose now. * Palliative care number provided. * Palliative care will continue to follow throughout hospital course to assist with symptom management and clarification of goals as needed. Thank you for the opportunity to participate in the care of Mr. Villatoro. Attestation To help prompt me to consider important information that might be impacting today's encounter and assessment, information from prior notes written by myself or my colleagues may have been "brought forward" into today's note. My signature on this note, however, is an attestation that I personally performed the exam, history, and/or decision-making noted today, and, unless otherwise indicated, the interactions with patient, family, and staff as well as the review of records all occurred today. I also attest that the listed assessment and stated plan reflect my best clinical judgment today based on the combination of historical information, prior notes, and today's exam/ interactions. When time spent is documented, it refers only to time spent today by the signer, or if indicated, combined time spent today by collaborating physician/nurse practitioner. Dariela De Jesus Sep 10, 2016 12:40
--- NOTE | 2016-09-10 12:45 | HHI.NPPN ---
Subjective History of Present Illness 65-year-old on PD with congestive heart failure Review of Systems General Constitutional: Fatigue Objective Data Data 09/09/16 09/10/16 19:00 07:00 Intake Total 1820 ml 240 ml Output Total 847 ml 0 ml Balance 973 ml 240 ml Intake Oral 720 ml 240 ml IV Total 1000 ml Albumin 100 ml Output Urine Total 0 ml 0 ml Stool Total 0 ml Peritoneal Fluid 847 ml # Voids 0 # Bowel Movements 0 1 Vital Signs Date Time Temp Pulse Resp B/P Pulse Ox O2 Delivery O2 Flow Rate FiO2 09/10/16 11:00 98.0 55 23 83/65 99 09/10/16 11:00 98 Nasal Cannula 3.00 09/10/16 11:00 108 09/10/16 07:00 52 09/10/16 07:00 95 Nasal Cannula 3.00 09/10/16 07:00 98.6 58 25 81/52 96 09/10/16 03:32 70 09/10/16 03:32 97.9 70 18 92/54 96 09/10/16 03:32 96 Nasal Cannula 3.00 09/09/16 23:48 97.9 77 18 73/61 96 09/09/16 23:48 70 09/09/16 23:48 96 Nasal Cannula 3.00 09/09/16 22:05 99 Nasal Cannula 3.00 09/09/16 19:31 93 Nasal Cannula 2.00 09/09/16 19:31 99.5 99 19 93/55 93 09/09/16 19:00 99 09/09/16 15:00 94 Nasal Cannula 2.00 09/09/16 15:00 100 09/09/16 15:00 98.2 80 16 75/56 94 09/09/16 14:00 99 Nasal Cannula 2.00 09/09/16 13:00 53 -: 09/09/16 1200 09/10/16 0518 Physical Exam General Appearance: Well Developed, Comfortable, Pale Eyes Eye Exam: Pupils Equal, Pupils Reactive Ears & Nose Ears & Nose Exam: Nasal Mucosa [place] Throat Throat Exam: Oral Mucosa [place] & Moist Neck Neck Exam: Trachea Midline Pulmonary Resp Exam: Crackles, Decreased Bases, Diminished Breath Sounds, Poor Inspiratory Effort (low air volumes) Cardiology CV Exam: Arrhythmia, Murmur Gastrointestinal/Abdomen GI Exam: Non-Tender, Bowel Sounds Present, Non-Distended Musculoskeletal MS Exam: Normal Tone, Atrophy Integumentary Skin Exam: Warm, Dry Extremeties Extremities Exam: No Edema, Pedal Pulses Palpable Neurologic Neuro Exam: Alert, Awake, Oriented, Speech Clear Neuro Remarks tremors Psychiatric Psych Exam: Appropriate Responses Assessment/Plan Problem List: (1) ESRD (end stage renal disease) on dialysis Plan: Continue PD. Monitor fluid and electrolytes. Labs were reviewed. BP Low Use 1.5% not doing well had decided to withdraw as failure to thrive Mitral Stenosis is severe family in agreement failure to thrive Nephrology to sign off OK for Palliative to take over (2) Congestive heart failure Plan: Patient has TAVR severe Mitral stenosis (3) CVA (cerebral vascular accident) Plan: Neurology following. On Keppra for tremors. Zachary Fisher MD Sep 10, 2016 12:45
[2016-09-10] MEDS ORDERED: LORazepam 2 MG/ML VIAL IV PUSH PRN (14:00)
[2016-09-10] MEDS: HYDROmorphone HCL PF 1 MG/ML VIAL IV PUSH PRN ×2 (14:10→18:00)
[2016-09-10 15:00] VITALS: PULSE 72
[2016-09-10] MEDS ORDERED: HYOSCYAMINE 0.5 MG/ML AMP IV PRN (15:30)
[2016-09-10] MEDS ORDERED: LORazepam 2 MG/ML VIAL IVS PRN (15:30)
[2016-09-10 15:41] VITALS: RESP 24
--- NOTE | 2016-09-10 16:17 | HHI.PR ---
Subjective History of Present Illness Alert, oriented 3, much worse today, continues with wide-complex tachycardia, looks like torsade on monitor, patient decided to stop dialysis and pursue comfort/hospice care Review of Systems Constitutional Constitutional: Fatigue, Weakness Constitutional Remarks General weakness,10 systems reviewed otherwise negative Pulmonary Respiratory: Coughing, Shortness of Breath Cardiology CV: Chest Pain (controlled) GI/Abdomen GI/Abdominal Exam: Constipation (monitor bowel regimen) Musculoskeletal MS: Weakness, Stiffness Psychiatric Psychiatric: Normal Mood, Anxiety Vitals/Results Intake & Output 09/09/16 09/09/16 09/10/16 15:00 23:00 07:00 Intake Total 1820 ml 240 ml Output Total 847 ml 0 ml 0 ml Balance -847 ml 1820 ml 240 ml Intake Oral 720 ml 240 ml IV Total 1000 ml Albumin 100 ml Output Urine Total 0 ml 0 ml Stool Total 0 ml Peritoneal Fluid 847 ml # Voids 0 # Bowel Movements 0 1 Vital Signs Vital Signs Date Time Temp Pulse Resp B/P Pulse Ox O2 Delivery O2 Flow Rate FiO2 09/10/16 15:41 24 09/10/16 15:00 72 09/10/16 11:00 98.0 55 23 83/65 99 09/10/16 11:00 98 Nasal Cannula 3.00 09/10/16 11:00 108 09/10/16 07:00 52 09/10/16 07:00 95 Nasal Cannula 3.00 09/10/16 07:00 98.6 58 25 81/52 96 09/10/16 03:32 70 09/10/16 03:32 97.9 70 18 92/54 96 09/10/16 03:32 96 Nasal Cannula 3.00 09/09/16 23:48 97.9 77 18 73/61 96 09/09/16 23:48 70 09/09/16 23:48 96 Nasal Cannula 3.00 09/09/16 22:05 99 Nasal Cannula 3.00 09/09/16 19:31 93 Nasal Cannula 2.00 09/09/16 19:31 99.5 99 19 93/55 93 09/09/16 19:00 99 CBC/BMP: 09/09/16 1200 09/10/16 0518 Lab Results Laboratory Tests Test 09/09/16 09/09/16 09/10/16 17:15 23:26 05:18 Troponin I 0.05 NG/ML 0.05 NG/ML 0.05 NG/ML Total Creatine Kinase 38 U/L 42 U/L Prothrombin Time 29.7 SEC Prothromb Time International 2.6 RATIO Ratio Sodium Level 133 MEQ/L Potassium Level 5.3 MEQ/L Chloride Level 97 MEQ/L Carbon Dioxide Level 19.5 MEQ/L Anion Gap 17 MEQ/L Blood Urea Nitrogen 91 MG/DL Creatinine 7.07 MG/DL Estimat Glomerular Filtration 8 ML/MIN Rate Random Glucose 142 MG/DL Calcium Level 7.2 MG/DL Protein Corrected Calcium 7.6 MG/DL Total Protein 6.3 GM/DL Physical Exam General General Appearance: Well Developed, Pale, Anxious Eyes Eye Exam: Pupils Equal, Pupils Reactive Ears & Nose Ears & Nose Exam: Nasal Mucosa [place] Throat Throat Exam: Oral Mucosa [place] & Moist Neck Neck Exam: Trachea Midline Pulmonary Resp Exam: Crackles, Decreased Bases, Diminished Breath Sounds, Poor Inspiratory Effort (low air volumes) Cardiology CV Exam: Arrhythmia, Murmur Gastrointestinal/Abdomen GI Exam: Non-Tender, Bowel Sounds Present, Non-Distended Musculoskeletal MS Exam: Normal Tone, Atrophy Integumentary Skin Exam: Warm, Dry Extremeties Extremities Exam: No Edema, Pedal Pulses Palpable Neurologic Neuro Exam: Alert, Awake, Oriented, Speech Clear Psychiatric Psych Exam: Appropriate Responses VTE Prophylaxis VTE Prophylaxis Meds: Coumadin Assessment/Plan Assessment/Plan Assessment Shock status, patient requested procedures to be discontinued Epilepsy Episodes of Confusion Acute small right frontal lacunar infarct posteriorly Severe mitral stenosis with moderate regurgitation according to echo report Admitted with respiratory insufficiency, Pulmonary edema, End-stage renal disease Pulmonary hypertension Aortic stenosis status post TAVR Nonischemic cardiomyopathy Paroxysmal atrial fibrillation Anemia of chronic disease Deconditioning Chronic debility on a wheelchair hx COPD, subarachnoid hemorrhage, peripheral neuropathy, cervical and lumbar fusion, Hearing loss, bilateral cataracts, chronic narcotic use, renal transplantation twice, Nonischemic cardiomyopathy,Paroxysmal atrial fibrillation on flecainide, mitral stenosis, RBBB, Orthostatic hypotension on long-term midodrine Management Hospice consulted Comfort care Pressors discontinued Dialysis was continued Very poor prognosis Discussed with patient and his Discussed with nurse over 40 minutes spent today Vlad Baltazar MD Sep 10, 2016 16:17
[2016-09-10] MEDS ORDERED: [UNRECOGNIZED DRUG - SUPPLY] (16:36)
[2016-09-10] MEDS ORDERED: POTA10CA PO (16:36)
[2016-09-10] MEDS ORDERED: POTA-163 PO (16:36)
--- NOTE | 2016-09-20 18:26 | HHI.DS ---
Discharge Summary Admission Date Aug 31, 2016 at 20:37 Discharge Date: Sep 10, 2016 Admitting Diagnosis Chest pain, shortness of breath, renal failure, elevated troponin (1) Probable healthcare associated pneumonia Diagnosis: Principal (2) Severe pulmonary edema Diagnosis: Principal (3) Acute kidney injury Diagnosis: Principal (4) Aortic stenosis Diagnosis: Secondary (5) Mitral regurgitation Diagnosis: Secondary (6) Mitral stenosis Diagnosis: Secondary (7) Right shoulder pain Diagnosis: Principal (8) Dyslipidemia Diagnosis: Secondary (9) Anemia Diagnosis: Secondary (10) ESRD (end stage renal disease) on dialysis Diagnosis: Secondary (11) Acute respiratory failure with hypoxemia (12) Severe sepsis with acute organ dysfunction Diagnosis: Principal (13) Acute exacerbation of CHF (congestive heart failure) Diagnosis: Principal (14) UTI (lower urinary tract infection) Diagnosis: Principal (15) Subarachnoid bleed Diagnosis: Principal Imaging Last Impressions Chest X-Ray 09/08/16 0000 Signed Impressions: Service Date/Time: Thursday, September 08, 2016 14:01 - CONCLUSION: 1. Compensated cardiomegaly with no acute infiltrate. 2. Extensive calcification of the mitral valve annulus. TAVR. Richard Ray MD Brain MRI 09/04/16 0000 Signed Impressions: Service Date/Time: Sunday, September 04, 2016 16:55 - CONCLUSION: 1. Tiny acute subcentimeter lacunar infarct posterior right frontal lobe. 2. 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 No mass effect or shift. Anthony Astorga MD Lung Scan-VQ Nuclear Medicine 09/02/16 0000 Signed Impressions: Service Date/Time: Friday, September 02, 2016 11:20 - CONCLUSION: Single large V/Q match , low probability for pulmonary embolism. embolism. Myron Damian MD FACR PE at Discharge General Appearance: Well Developed, Pale, Anxious Eyes Eye Exam: Pupils Equal, Pupils Reactive Ears & Nose Ears & Nose Exam: Nasal Mucosa [place] Throat Throat Exam: Oral Mucosa [place] & Moist Neck Neck Exam: Trachea Midline Pulmonary Resp Exam: Crackles, Decreased Bases, Diminished Breath Sounds, Poor Inspiratory Effort (low air volumes) Cardiology CV Exam: Arrhythmia, Murmur Gastrointestinal/Abdomen GI Exam: Non-Tender, Bowel Sounds Present, Non-Distended Musculoskeletal MS Exam: Normal Tone, Atrophy Integumentary Skin Exam: Warm, Dry Extremeties Extremities Exam: No Edema, Pedal Pulses Palpable Neurologic Neuro Exam: Alert, Awake, Oriented, Speech Clear Psychiatric Psych Exam: Appropriate Responses VTE Prophylaxis VTE Prophylaxis Meds: Coumadin Hospital Course These are the multiple diagnoses that were used to treat patient during this hospital course and plan of care. See also noted diagnosis listed above Shock status, patient requested procedures to be discontinued Epilepsy Episodes of Confusion Acute small right frontal lacunar infarct posteriorly Severe mitral stenosis with moderate regurgitation according to echo report Admitted with respiratory insufficiency, Pulmonary edema, End-stage renal disease Pulmonary hypertension Aortic stenosis status post TAVR Nonischemic cardiomyopathy Paroxysmal atrial fibrillation Anemia of chronic disease Deconditioning Chronic debility on a wheelchair hx COPD, subarachnoid hemorrhage, peripheral neuropathy, cervical and lumbar fusion, Hearing loss, bilateral cataracts, chronic narcotic use, renal transplantation twice, Nonischemic cardiomyopathy,Paroxysmal atrial fibrillation on flecainide, mitral stenosis, RBBB, Orthostatic hypotension on long-term midodrin Vital signs reviewed on 710, , BP trends low normals currently 95/64. Was called last night for his BP in the 80s, but when rechecked systolic was 103. Will have staff check manual pressures on him if needed for very high or low trends. Patient is asymptomatic with any acute blood pressure changes states medicine coming through the mail that had been ordered for him as an outpatient to increase his blood pressure. Should have that medication today Tremor /asterixis, continue by mouth Keppra low-dose, seems to be helping his upper extremity tremors Epilepsy according to EEG Episodes of Confusion, alert and cooperative now Acute small right frontal lacunar infarct posteriorly complicated with debility , patient working with PT, will also add OT, patient is very willing to continue rehabilitation when stable for discharge. Discussed options with patient and family Severe mitral stenosis with moderate regurgitation according to echo report, patient currently denies any chest pain, does have low air volumes and some dyspnea with murmur noted. Be and monitored per cardiology, will continue to monitor on an outpatient basis respiratory insufficiency, continue O2 therapy , duo nebs, low volumes and mild shortness of breath which appears to be part of his baseline Pulmonary edema, improved, continue to monitor with medical management and oxygen. Hypoxemia improved continue to monitor Hypokalemia, resolved End-stage renal disease on dialysis, patient has been on peritoneal dialysis at home for approximately 3 years, appreciate nephrology consult and following Staff is now doing his peritoneal dialysis daily. Pulmonary hypertension, medical management Aortic stenosis status post TAVR Nonischemic cardiomyopathy History of Paroxysmal atrial fibrillation Anemia of chronic disease Deconditioning, working with physical therapy and will add OT to the regimen. Saskia and today to evaluate patient for acute rehabilitation possibly may accept him today or tomorrow Acute on Chronic debility continues, still has generalized weakness in his upper and lower extremities, was able to stand before this admission but non- ambulatory now. Patient getting up in the chair, but still very deconditioned and debilitated Multi comorbidities affecting patient's generalized recovery and health , subarachnoid hemorrhage, peripheral neuropathy, cervical and lumbar fusion, Hearing loss, bilateral cataracts, chronic narcotic use, renal transplantation twice, Nonischemic cardiomyopathy,Paroxysmal atrial fibrillation on flecainide, mitral stenosis, RBBB, Orthostatic hypotension on long-term midodrine Discussed with patient on 710 his living well and wishes, patient currently wants to continue to be full aggressive care for code, Will except ventilation if needed but does not want to be maintained for any length of time if he has no chance of recovery. Initial Discharge planning possible acute rehabilitation, but patient took a turn for the worse and ended up in the intensive care setting Patient required hospitalist, cardiology, critical care, nephrology, neurology consults during this hospital stay Acute event noted Call received approximately 11 AM, patient had dysrhythmia, nurse states probable V. tach wide QRS complex, acutely hypotension with systolic in the 70s, patient felt symptomatic and lightheaded, was up in chair Placed back in bed, fluid bolus on, patient to be transitioned to intensive care setting, Dr. Baltazar called for follow-up Instructed nurse to also call cardiology for their input Dr. Baltazar was notified and immediately went to see patient seen, examined by myself, Dr Baltazar, today 09/09/16 at 11:15 AM Discussed with patient He had an episode of lightheadedness systolic blood pressure in the 60s and wide -complex tachycardia, This occurred after peritoneal dialysis completed, occurred from a sitting position, He also mentioned some chest pressure during the episode, He was transferred to ICU, Alert and oriented at this time without symptoms, He was started on normal saline 25 g of IV albumin ordered CK 3 Troponin 3 Stat EKG Get his project admin to see him Patient continued in the intensive care setting but was not responsive to multiple medications. Palliative care was consult to to assist with plan of care revolving around patient and 's wishes. Patient was transitioned to comfort care. Hospice received patient and transition was made to hospice facility. Pt Condition on Discharge: Deteriorating Discharge Disposition: Hospice/Med Facility Discharge Instructions DIET: Follow Instructions for: As Tolerated, No Restrictions Speech Therapy-Diet Recommends: Regular Activities you can perform: Continue Bedrest Continued Medications: Docusate Sodium (Colace) 100 Mg Capsule 1 CAP PO DAILY Gabapentin (Gabapentin) 100 Mg Cap 100 MG PO BID #60 Ref 0 CAP Midodrine (Midodrine) 10 Mg Tab 10 MG PO TID Control Low Blood Pressure #90 Ref 0 TAB [place]-3 Fatty Acids (Fish Oil 1000 mg) 1 Cap Cap 1 CAP PO DAILY Potassium Chloride ER (Potassium Chloride ER) 10 Meq Cap 10 MEQ PO Electrolyte Replacement #30 Ref 0 CAP (This prescription has been renewed) Potassium Chloride ER (Potassium Chloride ER) 20 Meq Tab 20 MEQ PO Electrolyte Replacement #30 Ref 0 TAB (This prescription has been renewed) Prednisone (Prednisone) 5 Mg Tab 5 MG PO DAILY Inflammation Ref 0 TAB Prednisone (Prednisone) 1 Mg Tab 1 MG PO DAILY Ref 0 TAB Prednisone (Prednisone) 5 Mg Tab 5 MG PO DAILY Ref 0 TAB ([mace cushion]) 1 UNIT .XX #1 (This prescription has been renewed) Discontinued Medications: Acetaminophen (Tylenol) 325 Mg Tab 650 MG PO Q4H PRN PAIN SCALE 1 TO 10 Ref 0 TAB B-Complex W/ C & Folic Acid (Aziza-Neeraj) 1 Tab 1 TAB PO DAILY TAB B-Complex W/ C & Folic Acid (Aziza-Neeraj Rx) 1 Tab 1 TAB PO DAILY Nutritional Supplement #30 Ref 0 TAB Calcitriol (Calcitriol) 0.25 Mcg Cap 0.25 MCG PO DAILY Calcium Supplement #30 Ref 0 CAP Cholecalciferol (Vitamin D3) 2,000 Unit Cap 2000 UNITS PO DAILY Nutritional Supplement #1 Ref 0 BOTTLE Denosumab Inj (Prolia Inj) 60 Mg/Ml Inj 60 MG SQ Q180D BONE SUPPORT Ref 0 VIAL Epoetin Inj (Procrit Inj) 2,000 Unit/Ml Inj 17757 UNITS SQ MONTHLY up to 2 times a month as needed Anemia #12 Ref 0 VIAL Epoetin Inj (Procrit Inj) 10,000 Unit/Ml Inj 87259 UNITS SQ 3XWEEK Anemia #12 Ref 0 VIAL Flecainide (Flecainide) 50 Mg Tab 75 MG PO BID Regulate Heart Beat #60 Ref 0 TAB Glucosamine (Glucosamine) 1,000 Mg Cap 2000 MG PO DAILY Herbal Supplements Ref 0 CAP Hydrocodone-Acetaminophen (Moore) 5-325 mg Tab 1 TAB PO Q4H PRN PAIN Ref 0 TAB Nutritional Supplements (Boost Breeze) 1 Liq Liq PO DAILY Omeprazole (Omeprazole) 20 Mg Tab 20 MG PO HS #30 Ref 0 TAB Protein (Whey Protein) 1 Pow Pow 30 GM OP EVERY OTHER DAY Sevelamer Carbonate (Renvela) 800 Mg Tab 8000 MG PO TID Control phosphorous levels #90 Ref 0 TAB Warfarin (Warfarin) 2.5 Mg Tab 2.5 MG PO -- Blood Clot Prevention #30 Ref 0 TAB Warfarin (Warfarin) 5 Mg Tab 5 MG PO Blood Clot Prevention #30 Ref 0 TAB Lilia Siegel Sep 20, 2016 18:26
== END 2016-09-10 18:49 | disposition hospice, inpatient (51) | DRG 640 ==
LOC: NEPE 18:25 → NEDA 20:37 → HIMN 22:35 → HCIS 09-03 15:46 → HCVR 09-09 11:09
PROVIDERS: ADMIT Specialist; ATTEND Specialist
PROC: 3E1M39Z Irrigation of Peritoneal Cavity using Dialysate, Percutaneous Approach (ICD-10-PCS; principal; 2016-08-31)
DX: E87.70 Fluid overload, unspecified (principal); I63.9 Cerebral infarction, unspecified; R57.9 Shock, unspecified; I13.2 Hypertensive heart and chronic kidney disease with heart failure and with stage 5 chronic kidney disease, or end stage renal disease; G93.41 Metabolic encephalopathy; I47.2 Ventricular tachycardia; J81.1 Chronic pulmonary edema; N18.6 End stage renal disease; T86.12 Kidney transplant failure; I42.9 Cardiomyopathy, unspecified; N25.81 Secondary hyperparathyroidism of renal origin; E27.40 Unspecified adrenocortical insufficiency; L89.152 Pressure ulcer of sacral region, stage 2; E87.1 Hypo-osmolality and hyponatremia; I27.2 Other secondary pulmonary hypertension; I50.9 Heart failure, unspecified; I25.10 Atherosclerotic heart disease of native coronary artery without angina pectoris; I45.10 Unspecified right bundle-branch block; R62.7 Adult failure to thrive; Y83.0 Surgical operation with transplant of whole organ as the cause of abnormal reaction of the patient, or of later complication, without mention of misadventure at the time of the procedure; M19.90 Unspecified osteoarthritis, unspecified site; I34.0 Nonrheumatic mitral (valve) insufficiency; I48.0 Paroxysmal atrial fibrillation; E78.00 Pure hypercholesterolemia, unspecified; Z51.5 Encounter for palliative care; Z66 Do not resuscitate; J44.9 Chronic obstructive pulmonary disease, unspecified; F41.9 Anxiety disorder, unspecified; Z86.73 Personal history of transient ischemic attack (TIA), and cerebral infarction without residual deficits; K21.9 Gastro-esophageal reflux disease without esophagitis; Z86.718 Personal history of other venous thrombosis and embolism; M10.9 Gout, unspecified; G47.30 Sleep apnea, unspecified; R73.9 Hyperglycemia, unspecified; R74.8 Abnormal levels of other serum enzymes; Z95.3 Presence of xenogenic heart valve; Z95.5 Presence of coronary angioplasty implant and graft; Z87.891 Personal history of nicotine dependence; Z86.72 Personal history of thrombophlebitis; Z79.899 Other long term (current) drug therapy; Z99.2 Dependence on renal dialysis; Z79.01 Long term (current) use of anticoagulants; Z99.3 Dependence on wheelchair; H91.90 Unspecified hearing loss, unspecified ear; E87.6 Hypokalemia; E83.39 Other disorders of phosphorus metabolism; E78.5 Hyperlipidemia, unspecified; Z82.49 Family history of ischemic heart disease and other diseases of the circulatory system; Z80.3 Family history of malignant neoplasm of breast; G60.0 Hereditary motor and sensory neuropathy; F28 Other psychotic disorder not due to a substance or known physiological condition; G25.81 Restless legs syndrome; Z99.81 Dependence on supplemental oxygen; Z79.891 Long term (current) use of opiate analgesic; D63.8 Anemia in other chronic diseases classified elsewhere; K59.00 Constipation, unspecified; R09.02 Hypoxemia; M54.32 Sciatica, left side; M62.50 Muscle wasting and atrophy, not elsewhere classified, unspecified site; R27.8 Other lack of coordination
CPT/HCPCS: 36600; 70551; 71010; 76937; 78582; 80048; 80053; 82533; 82550; 82805; 82948; 83605; 83690; 83735; 83880; 84100; 84155; 84484; 85007; 85025; 85027; 85610; 85730; 87040; 87641; 90935; 93005; 93306; 94640; 94664; 95819; 96374; 96375; 96376; A9540; A9567; J0456; J0692; J1170; J1720; J1815; J2060; J2270; J3370; J7030; J7040; J7050; J7613; P9047; Q0167